=== PATIENT | female | born 1955 | race Caucasian/White ===

== ENCOUNTER 2016-08-10 15:39 | Emergency (ER) | payer OTHER ==
[~2016-08-10] VITALS: Ht 162.6 cm; Wt 110.0 kg
[~2016-08-10 15:39] MED LIST: ALLO300T2 PO; CYMB60CA PO; DEXI60CA PO; FURO1TAB61 PO; LEVEMIR SQ; LEVIMIR; LIPI20TA PO; METF500T PO; METO50TA PO; NOVOLOGP2 SQ; PENT400T PO; PERC10TA27 PO; PLAV75TA29 PO; POTA-163 PO; ROPI1TAB PO; SITA50 PO; SPIR50TA PO; TIZA4CAP3 PO; XANA1TAB2 PO
[2016-08-10 15:41] VITALS: BP 165/68; PULSE 80; RESP 24; O2SAT 93
[2016-08-10 17:05] VITALS: BP 143/71; PULSE 76; RESP 19; O2SAT 98
[2016-08-10 17:23] VITALS: O2SAT 100
--- NOTE | 2016-08-10 17:29 | PD ---
HPI Chief Complaint: Respiratory Symptoms Time Seen by Provider: 17:16 Travel History International Travel<30 days: No Contact w/Intl Traveler<30days: No Traveled to known affect area: No History of Present Illness HPI This patient complains of shortness of breath on exertion. At rest she has no symptoms. She does not have any chest pain. Symptoms of moderate severity. They're alleviated by rest. Duration one week. History of CAD. Had normal stress test 2 months ago. Follows with her fabric sourcer Dr. Naranjo every 3 months. Recently changed her Lasix from daily to when necessary basis PFSH Past Medical History Hx Anticoagulant Therapy: Yes (plavix and asa 81 (has been taking 325 though)) Cardiac Catheterization: Yes (6 STENTS) Cardiovascular Problems: Yes (stents; [place]) High Cholesterol: Yes COPD: Yes Diabetes: Yes Patient Takes Glucophage: Yes (metformin 08/10/16 1100) Diminished Hearing: No Hypertension: Yes Respiratory: Yes (COPD) Tetanus Vaccination: > 5 Years Influenza Vaccination: Yes ?: Not : 3 Para: 3 Tubal Ligation: Yes Past Surgical History Appendectomy: Yes Coronary Artery Bypass Graft: Yes (CABGX1) Hysterectomy: Yes Tonsillectomy: Yes Social History Alcohol Use: Yes (rarely) Tobacco Use: No Substance Use: No Allergies-Medications (Allergen,Severity, Reaction): Coded Allergies: Benicar (Verified Allergy, Severe, 08/10/16) Cozaar (Verified Allergy, Severe, 08/10/16) Reported Meds & Prescriptions Reported Meds & Active Scripts Active Reported Magnesium Unknown Strength Tab Unknown Dose PO DAILY B-12 (Cyanocobalamin) Unknown Strength Tab Unknown Dose PO DAILY Aspirin DR (Aspirin) 81 Mg Tabdr 81 Mg PO DAILY Gabapentin 800 Mg Tab 800 Mg PO BID Omeprazole 20 Mg Tab 20 Mg PO BID Ropinirole 2 Mg Tab 2 Mg PO TID Tizanidine (Tizanidine HCl) 4 Mg Cap 4 Mg PO QID PRN Metformin (Metformin HCl) 500 Mg Tab 500 Mg PO BIDPC With meals Novolog Inj (Insulin Aspart) 1,000 Unit/10 Ml Vial 25 Units SQ TID Sliding Scale as directed. Levemir Inj (Insulin Detemir) 1,000 unit/ 10 ML Vial 60 Units SQ BID Do not mix with any other Insulin. Percocet (Oxycodone-Acetaminophen) 10-325 mg Tab 1 Tab PO Q4H PRN Xanax (Alprazolam) 1 Mg Tab 1 Mg PO Q6H PRN Allopurinol 300 Mg Tab 300 Mg PO HS Lipitor (Atorvastatin Calcium) 20 Mg Tab 20 Mg PO HS Cymbalta DR (Duloxetine HCl) 60 Mg Capdr 60 Mg PO HS Plavix (Clopidogrel Bisulfate) 75 Mg Tab 75 Mg PO DAILY Spironolactone 50 Mg Tab 50 Mg PO DAILY Potassium Chloride ER (Potassium Chloride) 20 Meq Tab 20 Meq PO DAILY PRN Lasix (Furosemide) 80 Mg Tab 80 Mg PO DAILY PRN Januvia (Sitagliptin Phosphate) 50 Mg Tab 50 Mg PO DAILY Metoprolol Tartrate 50 Mg Tab 50 Mg PO BID Review of Systems General / Constitutional: No: Fever Eyes: No: Visual changes HENT: No: Headaches Cardiovascular: No: Chest Pain or Discomfort Respiratory: Positive: Shortness of Breath Gastrointestinal: No: Abdominal Pain Genitourinary: No: Dysuria Musculoskeletal: No: Pain Skin: No Rash Neurologic: No: Weakness Psychiatric: No: Depression Endocrine: No: Polydipsia Hematologic/Lymphatic: No: Easy Bruising Physical Exam Narrative GENERAL: Well-nourished, well-developed patient in no apparent distress. SKIN: Warm and dry. HEAD: Atraumatic. Normocephalic. EYES: Pupils equal and round. No scleral icterus. No injection or drainage. ENT: No nasal bleeding or discharge. Mucous membranes pink and moist. NECK: Trachea midline. No JVD. CARDIOVASCULAR: Regular rate and rhythm. No murmur appreciated. RESPIRATORY: No accessory muscle use. Clear to auscultation. Breath sounds equal bilaterally. GASTROINTESTINAL: Abdomen soft, non-tender, nondistended. Hepatic and splenic margins not palpable. MUSCULOSKELETAL: No obvious deformities. No clubbing. No cyanosis. Trace symmetric edema the feet and ankles NEUROLOGICAL: Awake and alert. No obvious cranial nerve deficits. Motor grossly within normal limits. Normal speech. PSYCHIATRIC: Appropriate mood and affect; insight and judgment normal. Data Data Last Documented VS Vital Signs Date Time Temp Pulse Resp B/P Pulse Ox O2 Delivery O2 Flow Rate FiO2 08/10/16 17:23 100 Room Air 08/10/16 17:07 77 18 08/10/16 17:05 143/71 Orders Electrocardiogram (08/10/16 ) Basic Metabolic Panel (Bmp) (08/10/16 17:21) Ckmb (Isoenzyme) Profile (08/10/16 17:21) Complete Blood Count With Diff (08/10/16 17:21) Prothrombin Time / Inr (Pt) (08/10/16 17:21) Act Partial Throm Time (Ptt) (08/10/16 17:21) Troponin I (08/10/16 17:21) Chest, Single Ap (08/10/16 17:21) Ecg Monitoring (08/10/16 17:21) Bilateral Bp Monitoring (08/10/16 17:21) Iv Access Insert/Monitor (08/10/16 17:21) Oximetry (08/10/16 17:21) Aspirin (Aspirin) (08/10/16 17:30) Sodium Chloride 0.9% Flush (Ns Flush) (08/10/16 17:30) Furosemide Inj (Lasix Inj) (08/10/16 18:00) Labs Laboratory Tests Test 08/10/16 17:28 White Blood Count 9.6 TH/MM3 Red Blood Count 3.13 MIL/MM3 Hemoglobin 10.3 GM/DL Hematocrit 29.7 % Mean Corpuscular Volume 94.9 FL Mean Corpuscular Hemoglobin 32.9 PG Mean Corpuscular Hemoglobin 34.7 % Concent Red Cell Distribution Width 15.4 % Platelet Count 316 TH/MM3 Mean Platelet Volume 8.5 FL Neutrophils (%) (Auto) 68.7 % Lymphocytes (%) (Auto) 22.9 % Monocytes (%) (Auto) 5.5 % Eosinophils (%) (Auto) 2.1 % Basophils (%) (Auto) 0.8 % Neutrophils # (Auto) 6.6 TH/MM3 Lymphocytes # (Auto) 2.2 TH/MM3 Monocytes # (Auto) 0.5 TH/MM3 Eosinophils # (Auto) 0.2 TH/MM3 Basophils # (Auto) 0.1 TH/MM3 CBC Comment DIFF FINAL Differential Comment Prothrombin Time 10.3 SEC Prothromb Time International 0.9 RATIO Ratio Activated Partial 28.2 SEC Thromboplast Time Sodium Level 137 MEQ/L Potassium Level 4.5 MEQ/L Chloride Level 104 MEQ/L Carbon Dioxide Level 23.1 MEQ/L Anion Gap 10 MEQ/L Blood Urea Nitrogen 26 MG/DL Creatinine 1.62 MG/DL Estimat Glomerular Filtration 32 ML/MIN Rate Random Glucose 194 MG/DL Calcium Level 8.8 MG/DL Total Creatine Kinase 70 U/L Troponin I LESS THAN 0.02 NG/ML MDM Medical Decision Making Medical Screen Exam Complete: Yes Emergency Medical Condition: Yes Medical Record Reviewed: Yes Differential Diagnosis Differential diagnosis includes COPD, asthma, pneumonia, bronchitis, pneumothorax Narrative Course I have reviewed the patient's electronic medical record. Reviewed her chest pain center hospitalization from 2 months ago with normal stress test IV placed I reviewed the EKG which shows sinus rhythm and no ST elevation or ectopy I reviewed the chest x-ray shows sinus rhythm without ectopy Extended cardiac monitoring shows sinus rhythm without ectopy CBC is normal Metabolic profile is normal CK is normal Troponin is normal Coagulation studies are normal Workup is negative. Vitals are normal. She remains asymptomatic. I gave her a dose of IV Lasix in case there is a bit of fluid overload. No clinical suspicion of ACS She just had a normal recent stress test She follows closely with the fabric sourcer and she should contact them for follow -up to discuss this. She was concerned that she may need another heart catheterization and I advised her to discuss this with her fabric sourcer. I don't think it needs to be emergently done now however Diagnosis Primary Impression: Dyspnea on exertion Additional Impression: Hx of coronary artery disease Additional Instructions: The patient was advised to follow up with their physician and fabric sourcer and return if they worsen. Med/Other Pt SpecificInfo: Other Disposition: 01 DISCHARGE HOME Condition: Stable Piter Givens MD Aug 10, 2016 17:29
[2016-08-10] MEDS ORDERED: ASPIRIN 325 MG TAB PO ONE (17:30)
[2016-08-10] MEDS ORDERED: SODIUM CHLORIDE 0.9% FLUSH 5 ML FLUSH IVF PRN (17:30)
[2016-08-10] MEDS ORDERED: OMEP20TA PO (17:36)
[2016-08-10] MEDS ORDERED: ROPI2TAB PO (17:36)
[2016-08-10] MEDS ORDERED: GABA800T PO (17:45)
[2016-08-10] MEDS ORDERED: B-12100T PO (17:45)
[2016-08-10] MEDS ORDERED: MAGN200T PO (17:45)
[2016-08-10] MEDS ORDERED: ASPI81TA5 PO (17:45)
[2016-08-10 17:48] LABS: AUTOMATED NEUTROPHIL # 6.6 TH/MM3 (1.8-7.7); BASOPHIL # 0.1 TH/MM3 (0-0.2); BASOPHIL % 0.8 % (0.0-2.0); EOSINOPHIL # 0.2 TH/MM3 (0-0.4); EOSINOPHIL % 2.1 % (0.0-4.0); HEMATOCRIT 29.7 % (35.0-46.0); HEMO FLAGS DIFF FINAL; LYMPH % 22.9 % (9.0-44.0); LYMPHOCYTE # 2.2 TH/MM3 (1.0-4.8); MEAN CELL VOLUME 94.9 FL (80.0-100.0); MEAN CORPUSCULAR HEMOGLOBIN 32.9 PG (27.0-34.0); MEAN CORPUSCULAR HGB CONC 34.7 % (32.0-36.0); MONO % 5.5 % (0.0-8.0); NEUT % 68.7 % (16.0-70.0); PLATELET COUNT 316 TH/MM3 (150-450); RED BLOOD COUNT 3.13 MIL/MM3 (4.00-5.30); RED CELL DISTRIBUTION WIDTH 15.4 % (11.6-17.2); WHITE BLOOD COUNT 9.6 TH/MM3 (4.0-11.0)
[2016-08-10 17:50] LABS: APTT (PATIENT) 28.2 SEC (24.3-30.1); INTERNATIONAL NORMALIZED RATIO 0.9 RATIO; PROTHROMBIN TIME - PATIENT 10.3 SEC (9.8-11.6)
--- NOTE | 2016-08-10 17:50 | RADRPT ---
EXAM DATE/TIME: 08/10/2016 17:35 [facility] COMPARISON: CHEST SINGLE AP, May 23, 2016, 23:57. INDICATIONS : Short of breath. MEDICAL HISTORY : Hypertension. Chronic obstructive pulmonary disease. Myocardial infarction. Diabetes and endometr ial cancer. SURGICAL HISTORY : Tubal ligation. Hysterectomy. Tonsillectomy. CABG. ENCOUNTER: Initial ACUITY: 2 days PAIN SCORE: 1/10 LOCATION: Bilateral chest FINDINGS: A single view of the chest demonstrates the lungs to be symmetrically aerated without evidence of mas s, infiltrate or effusion. The cardiomediastinal contours are unremarkable. Osseous structures are intact with evidence of prior median sternotomy cardiac surgery.. CONCLUSION: No acute disease. No significant change has occurred. Joel Noriega MD on August 10, 2016 at 17:47 Board Certified Radiologist. This report was verified electronically.
[2016-08-10] MEDS ORDERED: FUROSEMIDE 20 MG/2 ML VIAL IV PUSH ONE (18:00)
[2016-08-10 18:04] LABS: ANION GAP 10 MEQ/L (5-15); BICARBONATE 23.1 MEQ/L (21.0-32.0); BLOOD UREA NITROGEN 26 MG/DL (7-18); CHLORIDE 104 MEQ/L (98-107); GLOMERULAR FILTRATION RATE 32 ML/MIN (>89); POTASSIUM 4.5 MEQ/L (3.5-5.1); SODIUM (NA) 137 MEQ/L (136-145)
[2016-08-10 18:10] LABS: CREATINE KINASE 70 U/L (26-192)
[2016-08-10 18:26] VITALS: BP 122/56; PULSE 68; RESP 19; O2SAT 97
--- NOTE | 2016-08-11 17:07 | EKG ---
Date Performed: 08/10/2016 Time Performed: 17:08:20 PTAGE: 60 years EKG: Sinus rhythm Since previous tracing, no significant change noted NORMAL ECG PREVIOUS TRACING : 05/24/2016 06.19 DOCTOR: Kamran Dial Interpretating Date/Time 08/11/2016 17:06:51
== END 2016-08-10 19:44 | disposition home or self-care (01) ==
LOC: NEPE 15:39
DX: R06.09 Other forms of dyspnea (principal); I25.10 Atherosclerotic heart disease of native coronary artery without angina pectoris; I10 Essential (primary) hypertension; I25.2 Old myocardial infarction; J44.9 Chronic obstructive pulmonary disease, unspecified; E11.9 Type 2 diabetes mellitus without complications; Z79.4 Long term (current) use of insulin; Z79.02 Long term (current) use of antithrombotics/antiplatelets; Z79.82 Long term (current) use of aspirin; Z79.899 Other long term (current) drug therapy; Z95.1 Presence of aortocoronary bypass graft
CPT/HCPCS: 71010; 80048; 82550; 84484; 85025; 85610; 85730; 93005; 96374; 99285; J1940

== ENCOUNTER 2016-10-07 13:54 | Observation (INO) | payer OTHER ==
[2016-10-07] VITALS (10 sets, daily range): BP systolic 93–118; BP diastolic 40–66; PULSE 63–72; RESP 18–21; TEMP 98.1–98.9; O2SAT 93–100
[~2016-10-07] VITALS: Ht 160 cm; Wt 110.8 kg
[~2016-10-07 13:54] MED LIST changes: +ASPI81TA5 PO; +B-12100T PO; -DEXI60CA PO; +GABA800T PO; -LEVIMIR; +MAGN200T PO; +OMEP20TA PO; -PENT400T PO; -ROPI1TAB PO; +ROPI2TAB PO
--- NOTE | 2016-10-07 14:02 | PD ---
HPI Chief Complaint: Chest Pain Time Seen by Provider: 14:01 Travel History International Travel<30 days: No Contact w/Intl Traveler<30days: No Traveled to known affect area: No History of Present Illness HPI 60-year-old female came to the emergency room with history of chest pain and shortness of breath. Patient says that all this started since yesterday. She is having the pain progressively worsened. The pain is in the middle of the chest radiating to the left side. And has strong history of coronary artery disease including multiple stents and a bypass surgery. Patient says that her her bypass was in 2012. She does have a claim agent who she follows up with. Took her aspirin and Plavix today. Her vital signs were within acceptable limits when she arrived. Patient is on a long list of medications on a daily basis. [facility] Past Medical History Narrative Medical List of her past medical, surgical, social and family history was reviewed from the nursing note. Hx Anticoagulant Therapy: Yes (plavix and asa 81 (has been taking 325 though)) Cardiac Catheterization: Yes (6 STENTS) Cardiovascular Problems: Yes (stents; [place]) High Cholesterol: Yes COPD: Yes Diabetes: Yes Diminished Hearing: No Hypertension: Yes Respiratory: Yes (COPD) : 3 Para: 3 Tubal Ligation: Yes Past Surgical History Appendectomy: Yes Coronary Artery Bypass Graft: Yes (CABGX1) Hysterectomy: Yes Tonsillectomy: Yes Social History Alcohol Use: Yes (rarely) Tobacco Use: No Substance Use: No Allergies-Medications (Allergen,Severity, Reaction): Coded Allergies: Benicar (Verified Allergy, Severe, 10/07/16) Cozaar (Verified Allergy, Severe, 10/07/16) Comments List of her allergies reviewed from the nursing note. Reported Meds & Prescriptions Reported Meds & Active Scripts Active Reported Magnesium Unknown Strength Tab Unknown Dose PO DAILY B-12 (Cyanocobalamin) Unknown Strength Tab Unknown Dose PO DAILY Aspirin DR (Aspirin) 81 Mg Tabdr 81 Mg PO DAILY Gabapentin 800 Mg Tab 800 Mg PO BID Omeprazole 20 Mg Tab 20 Mg PO BID Ropinirole 2 Mg Tab 2 Mg PO TID Tizanidine (Tizanidine HCl) 4 Mg Cap 4 Mg PO QID PRN Metformin (Metformin HCl) 500 Mg Tab 500 Mg PO BIDPC With meals Novolog Inj (Insulin Aspart) 1,000 Unit/10 Ml Vial 25 Units SQ TID Sliding Scale as directed. Levemir Inj (Insulin Detemir) 1,000 unit/ 10 ML Vial 60 Units SQ BID Do not mix with any other Insulin. Percocet (Oxycodone-Acetaminophen) 10-325 mg Tab 1 Tab PO Q4H PRN Xanax (Alprazolam) 1 Mg Tab 1 Mg PO Q6H PRN Allopurinol 300 Mg Tab 300 Mg PO HS Lipitor (Atorvastatin Calcium) 20 Mg Tab 20 Mg PO HS Cymbalta DR (Duloxetine HCl) 60 Mg Capdr 60 Mg PO HS Plavix (Clopidogrel Bisulfate) 75 Mg Tab 75 Mg PO DAILY Spironolactone 50 Mg Tab 50 Mg PO DAILY Potassium Chloride ER (Potassium Chloride) 20 Meq Tab 20 Meq PO DAILY PRN Lasix (Furosemide) 80 Mg Tab 80 Mg PO DAILY PRN Januvia (Sitagliptin Phosphate) 50 Mg Tab 50 Mg PO DAILY Metoprolol Tartrate 50 Mg Tab 50 Mg PO BID Narrative Medication List of her home medications reviewed from the nursing note. Review of Systems Except as stated in HPI: all other systems reviewed are Neg Physical Exam Narrative GENERAL: Awake, alert, morbidly obese, moderate distress SKIN: Focused skin assessment warm/dry. HEAD: Atraumatic. Normocephalic. EYES: Pupils equal and round. No scleral icterus. No injection or drainage. ENT: No nasal bleeding or discharge. Mucous membranes pink and moist. NECK: Trachea midline. No JVD. CARDIOVASCULAR: Regular rate and rhythm. No murmur appreciated. RESPIRATORY: No accessory muscle use. Clear to auscultation. Breath sounds equal bilaterally. GASTROINTESTINAL: Abdomen soft, non-tender, nondistended. Hepatic and splenic margins not palpable. MUSCULOSKELETAL: No obvious deformities. No clubbing. No cyanosis. No edema. NEUROLOGICAL: Awake and alert. No obvious cranial nerve deficits. Motor grossly within normal limits. Normal speech. PSYCHIATRIC: Appropriate mood and affect; insight and judgment normal. Data Data Last Documented VS Orders Electrocardiogram (10/07/16 14:09) Basic Metabolic Panel (Bmp) (10/07/16 14:09) Ckmb (Isoenzyme) Profile (10/07/16 14:09) Complete Blood Count With Diff (10/07/16 14:09) Magnesium (Mg) (10/07/16 14:09) Prothrombin Time / Inr (Pt) (10/07/16 14:09) Act Partial Throm Time (Ptt) (10/07/16 14:09) Troponin I (10/07/16 14:09) Chest, Single Ap (10/07/16 14:09) Ecg Monitoring (10/07/16 14:09) Bilateral Bp Monitoring (10/07/16 14:09) Iv Access Insert/Monitor (10/07/16 14:09) Oximetry (10/07/16 14:09) Oxygen Administration (10/07/16 14:09) Sodium Chloride 0.9% Flush (Ns Flush) (10/07/16 14:15) Add Patient To Providers List (10/07/16 ) Admit Order (Ed Use Only) (10/07/16 16:14) Labs MDM Medical Decision Making Medical Screen Exam Complete: Yes Emergency Medical Condition: Yes Medical Record Reviewed: Yes Interpretation(s) Twelve-lead EKG was reviewed by me. Normal sinus rhythm, normal axis, nonspecific ST-T wave changes. Heart rate of 73 bpm. Differential Diagnosis ACS, non-STEMI, nonspecific chest pain Narrative Course 3:54 PM blood test results are back. They are within acceptable limits. Patient has renal insufficiency which looks unchanged. She is within normal limit as well. Waiting for the hospitalist to call back for admission to rule out ACS. Procedures EKG Prior to Arrival: No Diagnosis Primary Impression: Chest pain Qualified Code: R07.9 - Chest pain, unspecified type Additional Impression: Renal insufficiency, mild Admitting Information Admitting Physician Requests: Observation Scripts Diltiazem CD 24 HR 120 Mg [id number] Mg PO DAILY #30 CAP Ref 0 Prov:Chance Hawkins MD 10/09/16 Loratadine 10 Mg Tab10 Mg PO HS #30 TAB Ref 0 Prov:Chance Hawkins MD 10/09/16 Breanna Schultz MD Oct 07, 2016 14:02 Neutrophils (%) (Auto) 77.4 % Lymphocytes (%) (Auto) 18.2 % Monocytes (%) (Auto) 2.5 % Eosinophils (%) (Auto) 1.4 % Basophils (%) (Auto) 0.5 % Neutrophils # (Auto) 8.0 TH/MM3 Lymphocytes # (Auto) 1.9 TH/MM3 Monocytes # (Auto) 0.3 TH/MM3 Eosinophils # (Auto) 0.1 TH/MM3 Basophils # (Auto) 0.1 TH/MM3 CBC Comment DIFF FINAL Differential Comment Prothrombin Time 10.7 SEC Prothromb Time International 1.0 RATIO Ratio Activated Partial 26.7 SEC Thromboplast Time Sodium Level 141 MEQ/L Potassium Level 4.5 MEQ/L Chloride Level 106 MEQ/L Carbon Dioxide Level 23.8 MEQ/L Anion Gap 11 MEQ/L Blood Urea Nitrogen 22 MG/DL Creatinine 1.40 MG/DL Estimat Glomerular Filtration 38 ML/MIN Rate Random Glucose 184 MG/DL Calcium Level 9.3 MG/DL Magnesium Level 2.1 MG/DL Total Creatine Kinase 95 U/L Troponin I LESS THAN 0.02 NG/ML MDM Medical Decision Making Medical Screen Exam Complete: Yes Emergency Medical Condition: Yes Medical Record Reviewed: Yes Interpretation(s) Twelve-lead EKG was reviewed by me. Normal sinus rhythm, normal axis, nonspecific ST-T wave changes. Heart rate of 73 bpm. Differential Diagnosis ACS, non-STEMI, nonspecific chest pain Narrative Course 3:54 PM blood test results are back. They are within acceptable limits. Patient has renal insufficiency which looks unchanged. She is within normal limit as well. Waiting for the hospitalist to call back for admission to rule out ACS. Procedures EKG Prior to Arrival: No Diagnosis Primary Impression: Chest pain Qualified Code: R07.9 - Chest pain, unspecified type Additional Impression: Renal insufficiency, mild Admitting Information Admitting Physician Requests: Observation Breanna Schultz MD Oct 07, 2016 14:02 Breanna Schultz MD Oct 07, 2016 14:02
[2016-10-07] MEDS ORDERED: SODIUM CHLORIDE 0.9% FLUSH 10 ML FLUSH IVF PRN (14:15)
--- NOTE | 2016-10-07 14:23 | RADHPO ---
EXAM DATE/TIME: 10/07/2016 14:16 [facility] COMPARISON: CHEST SINGLE AP, August 10, 2016, 17:35. INDICATIONS : Short of breath & chest pain. MEDICAL HISTORY : Hypertension. Chronic obstructive pulmonary disease. Myocardial infarction. Diabetes and endometrial cancer. SURGICAL HISTORY : Tubal ligation. Hysterectomy. Tonsillectomy. CABG. ENCOUNTER: Initial ACUITY: 1 day PAIN SCORE: 5/10 LOCATION: chest FINDINGS: A single view of the chest demonstrates the lungs to be symmetrically aerated without evidence of mas s, infiltrate or effusion. There is hazy opacity projected over the left lower chest which is probab ly due to scatter from patient's body habitus. The cardiomediastinal contours are unremarkable. Oss eous structures are intact. Prior median sternotomy with 8 wire sutures. CONCLUSION: The lungs are clear. Sekou Aguilera MD on October 07, 2016 at 14:20 Board Certified Radiologist. This report was verified electronically.
[2016-10-07 14:39] LABS: BASOPHIL # 0.1 TH/MM3 (0-0.2); BASOPHIL % 0.5 % (0.0-2.0); EOSINOPHIL # 0.1 TH/MM3 (0-0.4); EOSINOPHIL % 1.4 % (0.0-4.0); HEMATOCRIT 29.1 % (35.0-46.0); LYMPH % 18.2 % (9.0-44.0); LYMPHOCYTE # 1.9 TH/MM3 (1.0-4.8); MEAN CELL VOLUME 94.7 FL (80.0-100.0); MEAN CORPUSCULAR HEMOGLOBIN 30.7 PG (27.0-34.0); MEAN CORPUSCULAR HGB CONC 32.4 % (32.0-36.0); MONO % 2.5 % (0.0-8.0); NEUT % 77.4 % (16.0-70.0); PLATELET COUNT 335 TH/MM3 (150-450); RED BLOOD COUNT 3.07 MIL/MM3 (4.00-5.30); WHITE BLOOD COUNT 10.4 TH/MM3 (4.0-11.0)
[2016-10-07 14:40] LABS: HEMO FLAGS DIFF FINAL
[2016-10-07 14:49] LABS: CHLORIDE 106 MEQ/L (98-107); POTASSIUM 4.5 MEQ/L (3.5-5.1); SODIUM (NA) 141 MEQ/L (136-145)
[2016-10-07 14:52] LABS: ANION GAP 11 MEQ/L (5-15); BICARBONATE 23.8 MEQ/L (21.0-32.0); BLOOD UREA NITROGEN 22 MG/DL (7-18); MAGNESIUM 2.1 MG/DL (1.5-2.5)
[2016-10-07 14:53] LABS: APTT (PATIENT) 26.7 SEC (24.3-30.1); PROTHROMBIN TIME - PATIENT 10.7 SEC (9.8-11.6)
[2016-10-07 14:56] LABS: GLOMERULAR FILTRATION RATE 38 ML/MIN (>89)
[2016-10-07 15:02] LABS: CREATINE KINASE 95 U/L (26-192)
[2016-10-07] MEDS ORDERED: CALCIUM CARBONATE 500 MG CHEWABLE TAB CHEW PRN (16:15)
[2016-10-07] MEDS ORDERED: DOCUSATE SODIUM 50 MG/SENNA 8.6 MG TAB PO PRN (16:15)
[2016-10-07] MEDS ORDERED: NALOXONE HCL 0.4 MG/ML AMP IV PUSH PRN (16:15)
[2016-10-07] MEDS ORDERED: MORPHINE SULFATE 4 MG/ML INJ IV PRN (16:15)
[2016-10-07] MEDS ORDERED: ONDANSETRON HCL 4 MG/2 ML VIAL IV PRN (16:15)
[2016-10-07] MEDS ORDERED: NITROGLYCERIN 0.4 MG SL 25 TABS/BTL SL PRN (16:15)
[2016-10-07] MEDS ORDERED: SODIUM CHLORIDE 0.9% FLUSH 10 ML FLUSH IV FLUSH PRN (16:15)
[2016-10-07] MEDS ORDERED: ACETAMINOPHEN 500 MG CPLT PO PRN (16:15)
[2016-10-07] MEDS ORDERED: DEXTROSE 50% IN WATER 50 ML VIAL(D50) IV PUSH PRN (16:15)
[2016-10-07] MEDS ORDERED: GLUCAGON 1 MG/ML VIAL OTHER PRN (16:15)
[2016-10-07] MEDS ORDERED: ACETAMINOPHEN/HYDROcodone 325 MG/7.5 MG TAB PO PRN (16:15)
[2016-10-07] MEDS: HEPARIN SODIUM - SQ 10,000 UNITS/ML VIAL SQ SCH (17:00)
[2016-10-07] MEDS: INSULIN ASPART 1,000 UNITS/10 ML VIAL SQ SCH (18:00)
--- NOTE | 2016-10-07 18:16 | HHI.HP ---
[facility] Primary Care Physician Darren Blcak, DO Admission Diagnosis chest pain, rule out ACS, renal insufficiency Diagnoses: Chief Complaint: Chest pain Travel History International Travel<30 Days: No Contact w/Intl Traveler <30 Da: No Traveled to Known Affected Are: No History of Present Illness This is a 60-year-old female presented to the emergency room complaining of chest pain and shortness of breath. Started 2 months ago when she developed dyspnea on exertion which has been progressive. Early this morning she woke up with difficulty breathing. She has orthopnea, lower extremity swelling especially at the end of the day and weight gain 1-2 pounds, she takes Aldactone and as needed Lasix. She was evaluated by her program director group work a month ago and considered ERIN with her abnormal echocardiogram showing leaky valve but her BNP was not significantly elevated and was referred to a senior editor who performed pulmonary function test and was told that her shortness of breath is likely secondary to her heart condition. Today she also complained of retrosternal pressure scale of 4-10 with crampy discomfort on her left chest associated with dizziness and palpitations. She is worried because her symptoms are similar in the past when she ruled out for VT with negative stress test but required stenting. She has strong history of coronary artery disease including multiple stents and a bypass surgery. Took her aspirin and Plavix today. Review of Systems Constitutional: DENIES: Diaphoretic episodes, Fatigue, Fever, Weight gain, Weight loss, Chills, Dizziness, Change in appetite, Night Sweats Endocrine: DENIES: Heat/cold intolerance, Polydipsia, Polyuria, Polyphagia Eyes: DENIES: Blurred vision, Diplopia, Vision loss, Photosensitivity Ears, nose, mouth, throat: DENIES: Tinnitus, Vertigo, Throat pain, Hoarseness, Epistaxis, Odynophagia Respiratory: COMPLAINS OF: Shortness of breath, DENIES: Cough, Wheezing, Hemoptysis, Sputum production Cardiovascular: COMPLAINS OF: Chest pain, Dyspnea on Exertion, Lower Extremity Edema, Orthopnea, DENIES: Palpitations, Syncope, PND, Claudication Gastrointestinal: DENIES: Abdominal pain, Black stools, Bloody stools, Constipation, Diarrhea, Nausea, Vomiting, Difficulty Swallowing, Anorexia Genitourinary: DENIES: Urinary frequency, Urinary incontinence, Urgency, Hematuria, Dysuria, Nocturia, Vaginal discharge Integumentary: DENIES: Rash Neurologic: DENIES: Headache, Localized weakness, Seizures, Tremor, Poor Balance Psychiatric: DENIES: Anxiety, Confusion, Depression, Hallucinations, Agitation , Suicidal Ideation, Homicidal Ideation, Delusions Past Family Social History Past Medical History Coronary artery disease status post VT status post stents and bypass, PAD status post angioplasty, hyperlipidemia, COPD, diabetes mellitus, hypertension, COPD and chronic kidney disease stage III Past Surgical History As previously mentioned. Tubal ligation, appendectomy, hysterectomy and tonsillectomy Reported Medications Magnesium Unknown Strength Tab Unknown Dose PO DAILY B-12 (Cyanocobalamin) Unknown Strength Tab Unknown Dose PO DAILY Aspirin DR (Aspirin) 81 Mg Tabdr 81 Mg PO DAILY Gabapentin 800 Mg Tab 800 Mg PO BID Omeprazole 20 Mg Tab 20 Mg PO BID Ropinirole 2 Mg Tab 2 Mg PO TID Tizanidine (Tizanidine HCl) 4 Mg Cap 4 Mg PO QID PRN Metformin (Metformin HCl) 500 Mg Tab 500 Mg PO BIDPC With meals Novolog Inj (Insulin Aspart) 1,000 Unit/10 Ml Vial 25 Units SQ TID Sliding Scale as directed. Levemir Inj (Insulin Detemir) 1,000 unit/ 10 ML Vial 60 Units SQ BID Do not mix with any other Insulin. Percocet (Oxycodone-Acetaminophen) 10-325 mg Tab 1 Tab PO Q4H PRN Xanax (Alprazolam) 1 Mg Tab 1 Mg PO Q6H PRN Allopurinol 300 Mg Tab 300 Mg PO HS Lipitor (Atorvastatin Calcium) 20 Mg Tab 20 Mg PO HS Cymbalta DR (Duloxetine HCl) 60 Mg Capdr 60 Mg PO HS Plavix (Clopidogrel Bisulfate) 75 Mg Tab 75 Mg PO DAILY Spironolactone 50 Mg Tab 50 Mg PO DAILY Potassium Chloride ER (Potassium Chloride) 20 Meq Tab 20 Meq PO DAILY PRN Lasix (Furosemide) 80 Mg Tab 80 Mg PO DAILY PRN Januvia (Sitagliptin Phosphate) 50 Mg Tab 50 Mg PO DAILY Metoprolol Tartrate 50 Mg Tab 50 Mg PO BID Allergies: Coded Allergies: Lenorer (Verified Allergy, Severe, 10/07/16) Cozaar (Verified Allergy, Severe, 10/07/16) Social History Occasional alcohol use. Does not smoke or use illicit drugs Physical Exam Vital Signs Vital Signs Date Time Temp Pulse Resp B/P Pulse Ox O2 Delivery O2 Flow Rate FiO2 10/07/16 17:41 68 18 105/48 94 Room Air 10/07/16 17:32 68 18 93/40 100 BiPAP 10/07/16 17:00 93 21 10/07/16 15:40 68 18 102/53 95 Room Air 10/07/16 15:16 63 18 95/46 94 Room Air 10/07/16 14:34 72 115/66 118/66 10/07/16 14:33 18 97 Room Air 10/07/16 14:33 97 Room Air 10/07/16 14:15 97 Room Air 10/07/16 14:14 98.1 72 18 116/55 97 Physical Exam GENERAL: This is a well-nourished, well-developed patient, in no apparent distress. SKIN: No rashes, ecchymoses or lesions. Cool and dry. HEAD: Atraumatic. Normocephalic. No temporal or scalp tenderness. EYES: Pupils equal round and reactive. Extraocular motions intact. No scleral icterus. No injection or drainage. ENT: Nose without bleeding, purulent drainage or septal hematoma. Throat without erythema, tonsillar hypertrophy or exudate. Uvula midline. Airway patent. NECK: Trachea midline. No JVD or lymphadenopathy. Supple, nontender, no meningeal signs. CARDIOVASCULAR: Regular rate and rhythm without murmurs, gallops, or rubs. RESPIRATORY: Clear to auscultation. Breath sounds equal bilaterally. No wheezes , rales, or rhonchi. GASTROINTESTINAL: Abdomen soft, non-tender, nondistended. No hepato-splenomegaly , or palpable masses. No guarding. MUSCULOSKELETAL: Extremities without clubbing, cyanosis, or edema. No joint tenderness, effusion, or edema noted. No calf tenderness. Negative Homans sign bilaterally. NEUROLOGICAL: Awake and alert. Cranial nerves II through XII intact. Motor and sensory grossly within normal limits. Five out of 5 muscle strength in all muscle groups. Normal speech. Laboratory Laboratory Tests Test 10/07/16 14:25 White Blood Count 10.4 Red Blood Count 3.07 Hemoglobin 9.4 Hematocrit 29.1 Mean Corpuscular Volume 94.7 Mean Corpuscular Hemoglobin 30.7 Mean Corpuscular Hemoglobin 32.4 Concent Red Cell Distribution Width 15.0 Platelet Count 335 Mean Platelet Volume 8.3 Neutrophils (%) (Auto) 77.4 Lymphocytes (%) (Auto) 18.2 Monocytes (%) (Auto) 2.5 Eosinophils (%) (Auto) 1.4 Basophils (%) (Auto) 0.5 Neutrophils # (Auto) 8.0 Lymphocytes # (Auto) 1.9 Monocytes # (Auto) 0.3 Eosinophils # (Auto) 0.1 Basophils # (Auto) 0.1 CBC Comment DIFF FINAL Differential Comment Prothrombin Time 10.7 Prothromb Time International 1.0 Ratio Activated Partial 26.7 Thromboplast Time Sodium Level 141 Potassium Level 4.5 Chloride Level 106 Carbon Dioxide Level 23.8 Anion Gap 11 Blood Urea Nitrogen 22 Creatinine 1.40 Estimat Glomerular Filtration 38 Rate Random Glucose 184 Calcium Level 9.3 Magnesium Level 2.1 Total Creatine Kinase 95 Troponin I LESS THAN 0.02 B-Type Natriuretic Peptide 376 Result Diagram: 10/07/16 1425 10/07/16 1425 Imaging EKG tracing interpreted by me with sinus rhythm poor R-wave progression no significant. Change from previous Chest x-ray image interpreted by me with no acute cardiopulmonary disease Last Impressions Chest X-Ray 10/07/16 1409 Signed Impressions: Service Date/Time: Friday, October 07, 2016 14:16 - CONCLUSION: The lungs are clear. Sekou Aguilera MD Assessment and Plan Problem List: (1) Chest pain ICD Code: R07.9 Status: Acute (2) Dyspnea on exertion ICD Code: R06.09 Status: Acute Assessment and Plan 61-year-old female complaining of chest pain and shortness of breath. Initial cardiac enzymes and EKG unremarkable. Chest x-ray with no acute cardiopulmonary disease. Patient's states her symptoms are similar when she required stenting in the past. She has history of coronary artery disease status post multiple stents and CABG. Stress test negative for ischemia back in May 2016 but was a limited exam secondary to patient's habitus. Trend cardiac enzymes. Continue aspirin, Plavix, Lopressor and nitrates. Pain management with Lortab and IV morphine CHF exac. Patient with elevated BNP we'll obtain 2-D echo results performed a month ago. Start diuresis with IV Lasix with hold parameters, patient has soft BP. CHF education, I/O and monitor weight Chronic medical conditions of PAD, hyperlipidemia, COPD, diabetes mellitus, hypertension, COPD and chronic kidney disease stage III. Stable continue outpatient medications as appropriate. Monitor fingerstick with sliding scale coverage DVT prophylaxis with SCD and heparin. Discussed Condition With Patient Problem Qualifiers (1) Chest pain: Qualified Code: R07.9 - Chest pain, unspecified type Chele Feng MD Oct 07, 2016 18:16
[2016-10-07 18:32] LABS: CREATINE KINASE 89 U/L (26-192)
[2016-10-07] MEDS: oxyCODONE/ACETAMINOPHEN 10 MG/325 MG TAB PO PRN (18:40)
[2016-10-07] MEDS: INSULIN ASPART SUPPLEMENTAL SCALE SQ SCH (21:00)
[2016-10-07] MEDS: METOPROLOL TARTRATE 50 MG TAB PO SCH (21:00)
[2016-10-07] MEDS: PANTOPRAZOLE SOD 20 MG DELAYED RELEASE TAB PO SCH (21:37)
[2016-10-07] MEDS: ALLOPURINOL 300 MG TAB PO SCH (21:37)
[2016-10-07] MEDS: DULoxetine HCl DR 60 MG CAP PO SCH (21:37)
[2016-10-07] MEDS: ATORVASTATIN 20 MG TAB PO SCH (21:37)
[2016-10-07] MEDS: GABAPENTIN 400 MG CAP PO SCH (21:37)
[2016-10-07] MEDS: SODIUM CHLORIDE 0.9% FLUSH 10 ML FLUSH IV FLUSH SCH (21:38)
[2016-10-07] MEDS: INSULIN DETEMIR 100 UNITS/ML VIAL SQ SCH (21:38)
[2016-10-07 21:43] LABS: CREATINE KINASE 89 U/L (26-192)
[2016-10-08] VITALS (19 sets, daily range): BP systolic 101–169; BP diastolic 41–108; PULSE 65–87; RESP 20–22; TEMP 96.5–98.5; O2SAT 91–98
[2016-10-08] MEDS: ALPRAZolam 1 MG TAB PO PRN ×3 (00:42→20:55)
[2016-10-08] MEDS: oxyCODONE/ACETAMINOPHEN 10 MG/325 MG TAB PO PRN ×3 (00:43→20:55)
[2016-10-08 05:38] LABS: AUTOMATED NEUTROPHIL # 5.1 TH/MM3 (1.8-7.7); BASOPHIL % 0.4 % (0.0-2.0); EOSINOPHIL # 0.2 TH/MM3 (0-0.4); EOSINOPHIL % 2.7 % (0.0-4.0); HEMATOCRIT 29.8 % (35.0-46.0); HEMO FLAGS DIFF FINAL; LYMPH % 27.6 % (9.0-44.0); LYMPHOCYTE # 2.2 TH/MM3 (1.0-4.8); MEAN CELL VOLUME 93.3 FL (80.0-100.0); MEAN CORPUSCULAR HEMOGLOBIN 29.5 PG (27.0-34.0); MEAN CORPUSCULAR HGB CONC 31.6 % (32.0-36.0); NEUT % 63.3 % (16.0-70.0); PLATELET COUNT 313 TH/MM3 (150-450); RED CELL DISTRIBUTION WIDTH 14.5 % (11.6-17.2)
[2016-10-08] MEDS: INSULIN ASPART SUPPLEMENTAL SCALE SQ SCH ×4 (05:49→20:59)
[2016-10-08 05:54] LABS: POTASSIUM 4.1 MEQ/L (3.5-5.1)
[2016-10-08 05:58] LABS: MAGNESIUM 2.1 MG/DL (1.5-2.5)
[2016-10-08] MEDS: HEPARIN SODIUM - SQ 10,000 UNITS/ML VIAL SQ SCH ×2 (06:17→17:00)
[2016-10-08] MEDS: INSULIN ASPART 1,000 UNITS/10 ML VIAL SQ SCH ×3 (09:00→18:00)
--- NOTE | 2016-10-08 09:36 | HHI.PR ---
Subjective Remarks Follow-up heart failure. She is doing better no more chest pain. Patient states she usually takes 40 mg Lasix every day but yesterday morning prior to admission she took 80 mg. Discussed with RN. Awaiting return call from cardiology Objective Vitals Vital Signs Date Time Temp Pulse Resp B/P Pulse Ox O2 Delivery O2 Flow Rate FiO2 10/08/16 08:00 97.5 78 20 112/70 96 10/08/16 04:00 96.5 67 22 110/63 98 10/08/16 03:17 95 21 10/08/16 00:00 97.8 65 21 101/41 95 10/07/16 20:08 71 10/07/16 20:00 98.9 72 21 109/65 95 10/07/16 17:41 68 18 105/48 94 Room Air 10/07/16 17:32 68 18 93/40 100 BiPAP 10/07/16 17:00 93 21 10/07/16 15:40 68 18 102/53 95 Room Air 10/07/16 15:16 63 18 95/46 94 Room Air 10/07/16 14:34 72 115/66 118/66 10/07/16 14:33 18 97 Room Air 10/07/16 14:33 97 Room Air 10/07/16 14:15 97 Room Air 10/07/16 14:14 98.1 72 18 116/55 97 I/O 10/07/16 10/07/16 10/07/16 10/08/16 10/08/16 10/08/16 07:00 15:00 23:00 07:00 15:00 23:00 Intake Total 120 ml 480 ml Balance 120 ml 480 ml Intake Oral 120 ml 480 ml # Voids 2 2 # Bowel Movements 0 0 Result Diagram: 10/08/16 0438 10/08/16 0438 Imaging Last Impressions Chest X-Ray 10/07/16 1409 Signed Impressions: Service Date/Time: Friday, October 07, 2016 14:16 - CONCLUSION: The lungs are clear. Sekou Aguilera MD Objective Remarks GENERAL: This is a well-nourished, well-developed patient, in no apparent distress. SKIN: No rashes, ecchymoses or lesions. Cool and dry. HEAD: Atraumatic. Normocephalic. No temporal or scalp tenderness. EYES: Pupils equal round and reactive. Extraocular motions intact. No scleral icterus. No injection or drainage. ENT: Nose without bleeding, purulent drainage or septal hematoma. Throat without erythema, tonsillar hypertrophy or exudate. Uvula midline. Airway patent. NECK: Trachea midline. No JVD or lymphadenopathy. Supple, nontender, no meningeal signs. CARDIOVASCULAR: Regular rate and rhythm without murmurs, gallops, or rubs. RESPIRATORY: Decreased Breath sounds equal bilaterally. No wheezes, rales, or rhonchi. GASTROINTESTINAL: Abdomen soft, non-tender, nondistended. No guarding. MUSCULOSKELETAL: Extremities without clubbing, cyanosis, or edema. No joint tenderness, effusion, or edema noted. No calf tenderness. Negative Homans sign bilaterally. NEUROLOGICAL: Awake and alert. Cranial nerves II through XII intact. Motor and sensory grossly within normal limits. Five out of 5 muscle strength in all muscle groups. Normal speech. Procedures none A/P Problem List: (1) Chest pain ICD Code: R07.9 Status: Acute (2) Dyspnea on exertion ICD Code: R06.09 Status: Acute Assessment and Plan 61-year-old female complaining of chest pain and shortness of breath. Patient' s states her symptoms are similar when she required stenting in the past. She has history of coronary artery disease status post multiple stents and CABG. Stress test negative for ischemia back in May 2016 but was a limited exam secondary to patient's habitus. Ruled out for DC. Patient with resolved chest pain. Continue aspirin, Plavix, Lopressor and nitrates. Pain management with Lortab and IV morphine. We'll discuss with cardiology awaiting return call CHF exac. Patient with elevated BNP we'll obtain 2-D echo results performed a month ago. Improving continue diuresis with IV Lasix with hold parameters, patient has soft BP. CHF education, I/O and monitor weight Chronic medical conditions of PAD, hyperlipidemia, COPD, diabetes mellitus, hypertension, COPD and chronic kidney disease stage III. Stable continue outpatient medications as appropriate. Monitor fingerstick with sliding scale coverage DVT prophylaxis with SCD and heparin. Discharge Planning Discharge when cleared by cardiology Problem Qualifiers (1) Chest pain: Qualified Code: R07.9 - Chest pain, unspecified type Chele Feng MD Oct 08, 2016 09:36
[2016-10-08] MEDS: SODIUM CHLORIDE 0.9% FLUSH 10 ML FLUSH IV FLUSH SCH ×2 (10:13→20:53)
[2016-10-08] MEDS: INSULIN DETEMIR 100 UNITS/ML VIAL SQ SCH ×2 (10:14→20:54)
[2016-10-08] MEDS: FUROSEMIDE 20 MG/2 ML VIAL IV PUSH SCH ×2 (10:16→18:00)
[2016-10-08] MEDS: CLOPIDOGREL 75 MG TAB PO SCH (10:18)
[2016-10-08] MEDS: METOPROLOL TARTRATE 50 MG TAB PO SCH ×2 (10:18→20:53)
[2016-10-08] MEDS: PANTOPRAZOLE SOD 20 MG DELAYED RELEASE TAB PO SCH ×2 (10:18→20:54)
[2016-10-08] MEDS: ASPIRIN EC 81 MG TABEC PO SCH (10:18)
[2016-10-08] MEDS: GABAPENTIN 400 MG CAP PO SCH ×2 (10:18→20:53)
--- NOTE | 2016-10-08 11:03 | HHI.DCPOC ---
Discharge Care Plan Diagnosis: (1) Chest pain (2) Dyspnea on exertion Your Health Problems Are: Difficulty with ADL Exercise Tolerance Goals to Promote Your Health * To prevent worsening of your condition and complications * To maintain your health at the optimal level Directions to Meet Your Goals Take your medications as prescribed Follow your dietary instruction Follow activity as directed Keep your appointments as scheduled Take your immunizations and boosters as scheduled If your symptoms worsen call your PCP, if no PCP go to Urgent Care Center or Emergency Room Smoking is Dangerous to Your Health. Avoid second hand smoke Call the 24-hour hour crisis hotline for domestic abuse at Chele Feng MD Oct 08, 2016 11:03
--- NOTE | 2016-10-08 12:28 | EKG ---
Date Performed: 10/07/2016 Time Performed: 20:49:42 PTAGE: 60 years EKG: Sinus rhythm . Poor R wave progression - probable normal variant Low QRS voltages in precordial leads Borderline E CG Compared to prior tracing no significant change PREVIOUS TRACING : 10/07/2016 18.07 DOCTOR: Dany Smith Interpretating Date/Time 10/08/2016 12:27:42
--- NOTE | 2016-10-08 12:28 | EKG ---
Date Performed: 10/07/2016 Time Performed: 18:07:14 PTAGE: 60 years EKG: Sinus rhythm Poor R wave progression - probable normal variant Low QRS voltages in precordial leads Borderline EC G Compared to prior tracing no significant change PREVIOUS TRACING : 10/07/2016 13.59 DOCTOR: Dany Smith Interpretating Date/Time 10/08/2016 12:27:51
--- NOTE | 2016-10-08 12:28 | EKG ---
Date Performed: 10/07/2016 Time Performed: 13:59:58 PTAGE: 60 years EKG: Sinus rhythm Poor R wave progression - probable normal variant Borderline ECG Compared to prior tracing no signif icant change PREVIOUS TRACING : 08/10/2016 17.08 DOCTOR: Dnay Smith Interpretating Date/Time 10/08/2016 12:27:59
[2016-10-08] MEDS ORDERED: SODIUM CHLOR 0.9% 1000 ML INJ 1,000 ML IV SCH ×2 (12:33→16:19)
--- NOTE | 2016-10-08 13:17 | MB ---
cc: TIAGO MARTIN MD DATE OF CONSULTATION 10/08/2016 REASON FOR CONSULTATION Chest pain HISTORY OF PRESENT ILLNESS Ms. Oro is a 60-year-old female who does have a history of prior CABG, hypertension, hyperlipidemia and obstructive sleep apnea. The patient reports that she has had progressive episodes of shortness of breath. There was an episode that awoke her at night and was associated with chest pain. She is pain-free right now. She notes her breathing is better after the Lasix. Nonetheless, she is quite concerned because these symptoms are the same when she had her bypass. The patient also notes that she has had a recent pulmonary workup and was told that that was normal. She notes that she has been compliant with her sleep apnea machine and that was also recently evaluated. PAST MEDICAL HISTORY Significant for: 1. Anemia 2. Anxiety 3. Mild to moderate aortic regurgitation with mild aortic stenosis and a mean gradient of 13 millimeters of mercury. 4. There was also my no mitral stenosis with a mean gradient of 6 mmHg. 5. Sleep apnea 6. Tipton's esophagus 7. CAD with multiple stents in the RCA and LAD. She subsequently had a single-vessel CABG of the SVG to RCA in 2012. Nuclear stress testing June 09, 2016 was limited due to body habitus, but no definite ischemia and normal LV function was noted. 8. She also has a history of TIA. 9. Chronic kidney disease 10. Diabetes 11. GERD 12. Fatty liver 13. Hemorrhoids 14. Hyperlipidemia 15. Hypertension 16. Melanoma 17. PVD with recent intervention. 18. She also has a bad back. MEDICATIONS Outpatient medications include: 1. Aspirin 2. Gabapentin 3. Omeprazole 4. Ropinirole 5. Tizanidine 6. Metformin 7. Levemir 8. Percocet 9. Xanax 10. Allopurinol 11. Lipitor 12. Cymbalta 13. Plavix 14. Spironolactone 15. Potassium 16. Lasix 17. Januvia 18. Metoprolol FAMILY HISTORY Noncontributory REVIEW OF SYSTEMS Except what is mentioned in the HPI, all 12 systems are negative. SOCIAL HISTORY The patient is a former smoker. ALLERGIES BENICAR, COZAAR, PROTAMINE PHYSICAL EXAM VITAL SIGNS: 97.5, 78, 20, 112/70. GENERAL: She is a morbidly obese female who is in no apparent distress. NECK: Her neck is free from JVD. LUNGS: The lungs are clear to auscultation. CARDIOVASCULAR: She has a normal S1 and S2. There is a 2/6 systolic murmur. No rubs or gallops are appreciated. ABDOMEN: Soft. EXTREMITIES: Free from edema. LAB VALUES Significant for a hemoglobin of 9.4 and a creatinine of 1.5. This is down from 1.62. Her serial cardiac are 0.02/0.02. The BNP is 376. Chest x-ray was clear. EKG is negative for any acute changes. IMPRESSION Chest pain - The patient is having atypical symptoms which could potentially represent refractory cardiac symptoms as they are virtually identical to one of her prior presentations. The patient did have a nonischemic nuclear stress test several months ago. She is rather insistent on having a cardiac catheterization. We did discuss that there are additional risks with this approach. The patient understands that there is at least a several percent risk for , [place], CVA, progression of her renal insufficiency. Despite these risks, she is willing to proceed. I have spoken with Dr. Caldera who is agreeable. Renal insufficiency - The patient's creatinine is mildly elevated. This does appear to be improved from her baseline at her prior visit where her creatinine was 1.6-1.7. Diabetes - The Metformin has been held. Tiago Martin M.D. [facility]/[place] /12:25 PM /1:03 PM
[2016-10-08] MEDS ORDERED: IOHEXOL 350 MG/ML 50 ML BTL (for Cath Lab) OTHER ONE (14:21)
[2016-10-08] MEDS ORDERED: HEPARIN-NS/PF INJ 500 ML ONE (15:23)
[2016-10-08] MEDS ORDERED: MIDAZOLAM HCL 2 MG/2 ML VIAL ONE (15:24)
--- NOTE | 2016-10-08 16:15 | MB ---
cc: COLBY ROMERO DATE OF CONSULTATION: 10/08/2016. REASON FOR CONSULTATION: Interventional cardiology consultation for chest pain. HISTORY OF PRESENT ILLNESS: 60-year-old female with past medical history significant for coronary artery disease status post percutaneous coronary intervention and one vessel coronary artery bypass grafting, hypertension, hyperlipidemia, obesity and obstructive sleep apnea who presented to the emergency department at [facility] with complaints of progressive shortness of breath associated with chest pain. She reports that the symptoms are similar to when she had open heart surgery. In [facility], she was admitted to the hospital and she was seen by cardiology, Dr. Jazlyn Seay and she ruled out for myocardial infarction by cardiac enzymes. There was a discussion with the patient to do a stress test, however she declined, she prefers to get a coronary angiogram in addition to that according to her she had an unremarkable stress test a couple of months ago. Interventional cardiology has been consulted for left heart catheterization / percutaneous coronary intervention. PAST MEDICAL HISTORY: 1. Anemia. 2. Anxiety. 3. Coronary artery disease status post one-vessel CABG. 4. Percutaneous coronary intervention. 5. Sleep apnea. 6. Gastroesophageal reflux disease (GERD). 7. Diabetes. 8. Hypertension. 9. Hyperlipidemia. 10. Peripheral vascular disease. 11. TIA. 12. Obesity. PAST SURGICAL HISTORY: 1. CABG. CARDIAC MEDICATIONS AT HOME: 1. Aspirin. 2. Lipitor. 3. Plavix. 4. Spironolactone. 5. Lasix. 6. Metoprolol. FAMILY HISTORY: Noncontributory. REVIEW OF SYSTEMS: Negative except for the ones mentioned in the history of present illness. SOCIAL HISTORY: The patient is a former smoker, denies illicit drug use. No alcohol use. ALLERGIES: 1. BENICAR. 2. COZAAR. 3. PROTAMINE. PHYSICAL EXAMINATION: VITAL SIGNS: Temperature 97, respiratory rate 18, heart rate 72, blood pressure 142/65, 02 saturation 95% in room air. GENERAL: Awake, alert and oriented times three in no acute distress. NECK: No jugular venous distention. No carotid bruits. HEART: Regular rate and rhythm. No murmurs, rubs or gallops. LUNGS: Clear to auscultation bilaterally. No wheezes, rales or rhonchi. ABDOMEN: The abdomen is soft, nontender and nondistended. Obese. Positive bowel sounds. EXTREMITIES: No cyanosis or edema. Pulses present. DATA: CBC: Hemoglobin 9.4, hematocrit 29.8, platelet count 313,000. INR 1. Chemistries: Sodium 141, potassium 4.1, BUN 23, creatinine 1.5. Troponin less than 0.02 x3. BNP 376. IMAGING STUDIES: Chest x-ray shows no acute cardiopulmonary process. EKGS: EKG shows normal sinus rhythm with poor R wave progression. ASSESSMENT AND PLAN: 60-year-old female with atypical chest pain and known history of coronary artery disease complaining of angina. She has been transferred from [facility] to the [facility] for left heart catheterization. The risks and benefits of left heart catheterization / percutaneous coronary intervention including but not limited to neurovascular trauma, bleeding, infection, acute kidney injury, emergent bypass surgery, stroke and have been explained to the patient. The patient understands the risk and she is willing to proceed. Thank you for the opportunity to participate in the care of this patient. Further therapy to be determined. MD ROBERTO Mays/JCC /3:37 PM /3:59 PM MTDPresley
[2016-10-08] MEDS ORDERED: ONDANSETRON HCL 4 MG/2 ML VIAL IV PRN (16:30)
[2016-10-08] MEDS ORDERED: ATROPINE SULFATE 1 MG/ML VIAL IV PRN (16:30)
--- NOTE | 2016-10-08 16:52 | MA ---
cc: COLBY ROMERO DATE: 10/08/2016. PROCEDURE PERFORMED: 1. Left heart catheterization. 2. Selective right and left heart coronary angiography. 3. Saphenous vein graft to the posterior descending artery angiography. 4. Left ventricle pressure recordings. 5. Selective right common femoral artery angiography. INDICATIONS FOR THE PROCEDURE: Angina. Known coronary artery disease. DESCRIPTION OF THE PROCEDURE IN DETAIL: Consent signed. The patient was taken to the cardiac organic lab worker in a fasting state. The right groin was prepped and draped in sterile fashion using 1% lidocaine for local anesthesia and a micropuncture kit. A 5-Spanish sheath was inserted into the right common femoral artery. Selective right common femoral artery angiography was performed to confirm position of the sheath. Then selective right and left coronary angiography was performed with a JR-4 and JL- 4 diagnostic catheters. This was followed by angiography to the saphenous vein graft going to the posterior descending artery. Angiography was taken in multiple views. Then a JR-4 over the wire was introduced into the left ventricle and it was followed by pressure recordings and pullback. The patient tolerated the procedure well without complications. Estimated blood loss less than 30 mL. Total contrast used 35 mL. The right groin access site was closed with a VASCADE closure device. RESULTS: Left ventricular end diastolic pressure was 20. There was no gradient upon pullback from the left ventricle to aorta. ANGIOGRAPHY: 1. Right coronary artery - 100% occluded. 2. Left main - patient with XIN III flow. 3. Left anterior descending - transapical vessel that has minimal luminal irregularities throughout, 20% lesion proximally and diffuse disease distally. 4. The diagonals are patent with nonobstructive coronary artery disease. 5. The left circumflex artery is patent. This vessel has a small AV groove segment and two prominent obtuse marginals which are patent with nonobstructive coronary artery disease. 6. The right coronary artery is 100% occluded. GRAFT ANGIOGRAPHY: There is only one graft going to the posterior descending artery which is patent. CONCLUSIONS: 1. Single vessel CAD with a patent 1 out of 1 graft, saphenous vein graft to posterior descending artery. 2. Elevated left ventricular end diastolic pressure. RECOMMENDATIONS: 1. Continue aggressive medical management for secondary prevention of coronary artery disease. 2. The patient will also benefit from weight loss management and starting a long -acting nitrate. MD ROBERTO Mays/BRUNO /4:24 PM /4:40 PM [facility]
[2016-10-08] MEDS: ALLOPURINOL 300 MG TAB PO SCH (20:53)
[2016-10-08] MEDS: ATORVASTATIN 20 MG TAB PO SCH (20:53)
[2016-10-08] MEDS: DULoxetine HCl DR 60 MG CAP PO SCH (21:08)
[2016-10-09] VITALS (19 sets, daily range): BP systolic 120–163; BP diastolic 59–72; PULSE 68–84; RESP 18–20; TEMP 98.1–99.1; O2SAT 93–97
[2016-10-09] MEDS: HEPARIN SODIUM - SQ 10,000 UNITS/ML VIAL SQ SCH (05:13)
[2016-10-09] MEDS: INSULIN ASPART SUPPLEMENTAL SCALE SQ SCH ×2 (06:02→11:00)
[2016-10-09 07:05] LABS: BICARBONATE 28.4 MEQ/L (21.0-32.0); MAGNESIUM 2.1 MG/DL (1.5-2.5); POTASSIUM 3.9 MEQ/L (3.5-5.1)
[2016-10-09] MEDS: INSULIN DETEMIR 100 UNITS/ML VIAL SQ SCH (09:00)
[2016-10-09] MEDS: INSULIN ASPART 1,000 UNITS/10 ML VIAL SQ SCH ×2 (09:00→13:00)
[2016-10-09] MEDS: FUROSEMIDE 20 MG/2 ML VIAL IV PUSH SCH (09:00)
[2016-10-09] MEDS: SODIUM CHLORIDE 0.9% FLUSH 10 ML FLUSH IV FLUSH SCH (09:00)
[2016-10-09] MEDS: METOPROLOL TARTRATE 50 MG TAB PO SCH (09:24)
[2016-10-09] MEDS: CLOPIDOGREL 75 MG TAB PO SCH (09:24)
[2016-10-09] MEDS: ASPIRIN EC 81 MG TABEC PO SCH (09:24)
[2016-10-09] MEDS: GABAPENTIN 400 MG CAP PO SCH (09:24)
[2016-10-09] MEDS: PANTOPRAZOLE SOD 20 MG DELAYED RELEASE TAB PO SCH (09:24)
[2016-10-09] MEDS: oxyCODONE/ACETAMINOPHEN 10 MG/325 MG TAB PO PRN (10:26)
[2016-10-09] MEDS ORDERED: DILT-60 PO (12:10)
[2016-10-09] MEDS ORDERED: LORA10TA PO (12:10)
[2016-10-09] MEDS ORDERED: POTASSIUM CHLORIDE 20 MEQ CONTROLLED RELEASE TAB PO PRN (12:15)
[2016-10-09] MEDS ORDERED: FUROSEMIDE 80 MG TAB PO PRN (12:15)
--- NOTE | 2016-10-09 14:25 | HHI.DS ---
Discharge Summary Admission Date Oct 07, 2016 at 16:14 Discharge Date: Oct 09, 2016 Admitting Diagnosis chest pain, rule out ACS, renal insufficiency (1) Chest pain ICD Code: R07.9 (2) Dyspnea on exertion ICD Code: R06.09 Diagnosis: Secondary Procedures none Brief History - From Admission This is a 60-year-old female presented to the emergency room complaining of chest pain and shortness of breath. Started 2 months ago when she developed dyspnea on exertion which has been progressive. Early this morning she woke up with difficulty breathing. She has orthopnea, lower extremity swelling especially at the end of the day and weight gain 1-2 pounds, she takes Aldactone and as needed Lasix. She was evaluated by her adjunct trainer a month ago and considered ERIN with her abnormal echocardiogram showing leaky valve but her BNP was not significantly elevated and was referred to a class a lineman who performed pulmonary function test and was told that her shortness of breath is likely secondary to her heart condition. Today she also complained of retrosternal pressure scale of 4-10 with crampy discomfort on her left chest associated with dizziness and palpitations. She is worried because her symptoms are similar in the past when she ruled out for DC with negative stress test but required stenting. She has strong history of coronary artery disease including multiple stents and a bypass surgery. Took her aspirin and Plavix today. CBC/BMP: 10/08/16 0438 10/09/16 0610 Significant Findings Laboratory Tests Test 10/07/16 10/07/16 10/07/16 10/08/16 14:25 18:00 20:55 04:38 Red Blood Count 3.07 MIL/MM3 3.20 MIL/MM3 (4.00-5.30) (4.00-5.30) Hemoglobin 9.4 GM/DL 9.4 GM/DL (11.6-15.3) (11.6-15.3) Hematocrit 29.1 % 29.8 % (35.0-46.0) (35.0-46.0) Neutrophils (%) (Auto) 77.4 % (16.0-70.0) Neutrophils # (Auto) 8.0 TH/MM3 (1.8-7.7) Blood Urea Nitrogen 22 MG/DL (7-18) 23 MG/DL (7-18) Creatinine 1.40 MG/DL 1.50 MG/DL (0.50-1.00) (0.50-1.00) Estimat Glomerular Filtration 38 ML/MIN (>89) 35 ML/MIN (>89) Rate Random Glucose 184 MG/DL 128 MG/DL (74-106) (74-106) Troponin I LESS THAN 0.02 LESS THAN 0.02 LESS THAN 0.02 NG/ML NG/ML NG/ML (0.02-0.05) (0.02-0.05) (0.02-0.05) B-Type Natriuretic Peptide 376 PG/ML (0-100) Mean Corpuscular Hemoglobin 31.6 % Concent (32.0-36.0) Test 10/09/16 06:10 Blood Urea Nitrogen 21 MG/DL (7-18) Creatinine 1.37 MG/DL (0.50-1.00) Estimat Glomerular Filtration 39 ML/MIN (>89) Rate Random Glucose 135 MG/DL (74-106) PE at Discharge GENERAL: This is a well-nourished, well-developed patient, in no apparent distress. SKIN: No rashes, ecchymoses or lesions. Cool and dry. HEAD: Atraumatic. Normocephalic. No temporal or scalp tenderness. EYES: Pupils equal round and reactive. Extraocular motions intact. No scleral icterus. No injection or drainage. ENT: Nose without bleeding, purulent drainage or septal hematoma. Throat without erythema, tonsillar hypertrophy or exudate. Uvula midline. Airway patent. NECK: Trachea midline. No JVD or lymphadenopathy. Supple, nontender, no meningeal signs. CARDIOVASCULAR: Regular rate and rhythm without murmurs, gallops, or rubs. RESPIRATORY: Decreased Breath sounds equal bilaterally. No wheezes, rales, or rhonchi. GASTROINTESTINAL: Abdomen soft, non-tender, nondistended. No guarding. MUSCULOSKELETAL: Extremities without clubbing, cyanosis, or edema. No joint tenderness, effusion, or edema noted. No calf tenderness. Negative Homans sign bilaterally. NEUROLOGICAL: Awake and alert. Cranial nerves II through XII intact. Motor and sensory grossly within normal limits. Five out of 5 muscle strength in all muscle groups. Normal speech. Hospital Course Mrs. Oro is a 60 year old female. She was admitted with chest pain and has a history of CAD with bypass. A heart cath was performed and shows no disease significant for stenting. She is cleared by cardiology. When I visited her she is complaining about recurrent dyspnea, which is ongoing and independent of her recent chest pain. Cardiac evaluations and pulmonary evaluations do not reveal any specific etiology per the patient. Alternate causes may be allergy related or an underlying pulmonary hypertention. She reports high blood pressures occasionally as an outpatient. Related pulmonary edema from HTN, pulmonary hypertension, or transient flash pulmonary edema could lead to episodic episodes of dyspnea/hypoxia. Treatment trials of Loratadine to cover for allergies are discussed. I am also adding diltiazem both for BP control and for empiric coverage of possible pulmonary hypertension. I asked if she could keep track of her symptoms through time and report to an MD for any positive changes or stop the treatments if she finds no benefit by the next two weeks. Pt Condition on Discharge: Stable Discharge Disposition: Discharge Home Discharge Time: <= 30 minutes Discharge Instructions DIET: Follow Instructions for: Heart Healthy Diet Activities you can perform: Regular-No Restrictions Follow up Referrals: Cardiology - 1 Week PCP Follow-up - 2-3 Days New Medications: Diltiazem CD 24 HR (Diltiazem CD 24 HR) 120 Mg Caper 120 MG PO DAILY #30 Ref 0 CAP Loratadine (Loratadine) 10 Mg Tab 10 MG PO HS Allergy Management #30 Ref 0 TAB Continued Medications: Allopurinol (Allopurinol) 300 Mg Tab 300 MG PO HS Gout #30 Ref 0 TAB Alprazolam (Xanax) 1 Mg Tab 1 MG PO Q6H PRN ANXIETY Ref [address] (Aspirin DR) 81 Mg Tabdr 81 MG PO DAILY Ref 0 TAB Atorvastatin (Lipitor) 20 Mg Tab 20 MG PO HS Cholesterol Management #30 Ref 0 TAB Clopidogrel (Plavix) 75 Mg Tab 75 MG PO DAILY Blood Clot Prevention #30 Ref 0 TAB Cyanocobalamin (B-12) Unknown Strength Tab Unknown Dose PO DAILY Nutritional Supplement #1 Ref [address] (Cymbalta DR) 60 Mg Capdr 60 MG PO HS #30 Ref 0 CAP Furosemide (Lasix) 80 Mg Tab 80 MG PO DAILY PRN EDEMA #30 Ref 0 TAB Gabapentin (Gabapentin) 800 Mg Tab 800 MG PO BID #90 Ref 0 TAB Insulin Aspart Inj (Novolog Inj) 1,000 Unit/10 Ml Vial 25 UNITS SQ TID Sliding Scale as directed. Blood Sugar Management #10 Ref 0 ML Insulin Detemir Inj (Levemir Inj) 1,000 unit/ 10 ML Vial 60 UNITS SQ BID Do not mix with any other Insulin. Blood Sugar Management Ref 0 VIAL Magnesium (Magnesium) Unknown Strength Tab Unknown Dose PO DAILY TAB Metoprolol Tartrate (Metoprolol Tartrate) 50 Mg Tab 50 MG PO BID #30 Ref 0 TAB Omeprazole (Omeprazole) 20 Mg Tab 20 MG PO BID #30 Ref 0 TAB Oxycodone-Acetaminophen (Percocet) 10-325 mg Tab 1 TAB PO Q4H PRN PAIN Ref 0 TAB Potassium Chloride ER (Potassium Chloride ER) 20 Meq Tab 20 MEQ PO DAILY PRN WHEN TAKING LASIX #30 Ref 0 TAB Ropinirole (Ropinirole) 2 Mg Tab 2 MG PO TID #90 Ref 0 TAB Sitagliptin (Januvia) 50 Mg Tab 50 MG PO DAILY Blood Sugar Management #30 Ref 0 TAB Spironolactone (Spironolactone) 50 Mg Tab 50 MG PO DAILY #30 Ref 0 TAB Tizanidine (Tizanidine) 4 Mg Cap 4 MG PO QID PRN MUSCLE SPASM Ref 0 CAP Chance Hawkins MD Oct 09, 2016 14:25
[2016-10-10] MEDS ORDERED: SPIRONOLACTONE 50 MG TAB PO SCH (09:00)
[2016-10-10] MEDS ORDERED: metFORMIN HCL 500 MG TAB PO SCH (09:00)
== END 2016-10-09 14:22 | disposition home or self-care (01) ==
LOC: PHED 13:54 → PHEDA 16:14 → PH3A 18:20 → HCIS 10-08 19:14
PROVIDERS: ADMIT Hospitalist; ATTEND Hospitalist
DX: R07.9 Chest pain, unspecified (principal); I25.119 Atherosclerotic heart disease of native coronary artery with unspecified angina pectoris; Z79.01 Long term (current) use of anticoagulants; E78.00 Pure hypercholesterolemia, unspecified; J44.9 Chronic obstructive pulmonary disease, unspecified; Z79.4 Long term (current) use of insulin; N18.3 Chronic kidney disease, stage 3 (moderate); R00.2 Palpitations; R42 Dizziness and giddiness; R06.09 Other forms of dyspnea; Z95.1 Presence of aortocoronary bypass graft; Z95.5 Presence of coronary angioplasty implant and graft; I13.0 Hypertensive heart and chronic kidney disease with heart failure and stage 1 through stage 4 chronic kidney disease, or unspecified chronic kidney disease; E11.22 Type 2 diabetes mellitus with diabetic chronic kidney disease; E78.5 Hyperlipidemia, unspecified; G47.33 Obstructive sleep apnea (adult) (pediatric); D64.9 Anemia, unspecified; F41.9 Anxiety disorder, unspecified; I35.0 Nonrheumatic aortic (valve) stenosis; I35.1 Nonrheumatic aortic (valve) insufficiency; K22.70 Barrett's esophagus without dysplasia; Z86.73 Personal history of transient ischemic attack (TIA), and cerebral infarction without residual deficits; K21.9 Gastro-esophageal reflux disease without esophagitis; K76.0 Fatty (change of) liver, not elsewhere classified; I73.9 Peripheral vascular disease, unspecified; Z79.899 Other long term (current) drug therapy; Z87.891 Personal history of nicotine dependence; E66.01 Morbid (severe) obesity due to excess calories; I27.2 Other secondary pulmonary hypertension
CPT/HCPCS: 71010; 80048; 82550; 82948; 83735; 83880; 84484; 85025; 85610; 85730; 93005; 93454; 99285; C1760; C1769; C1893; G0269; G0378; J1644; J1815; J1940; J2250; J2270; J3010; J7030; Q9967

== ENCOUNTER 2016-11-21 20:38 | Emergency (ER) | payer OTHER ==
[~2016-11-21 20:38] MED LIST changes: +DILT-60 PO; +LORA10TA PO
[2016-11-21 20:42] VITALS: BP 147/69; PULSE 84; RESP 20; TEMP 97.5; O2SAT 96
[2016-11-21] MEDS ORDERED: PRED20 PO (21:14)
[2016-11-21] MEDS ORDERED: ACYC800T PO (21:14)
--- NOTE | 2016-11-21 21:20 | PD ---
HPI Chief Complaint: Skin Problem Time Seen by Provider: 21:05 Travel History International Travel<30 days: No Contact w/Intl Traveler<30days: No Traveled to known affect area: No History of Present Illness HPI 61-year-old female with a one-day history of painful rash left upper forehead. Patient reports she felt pain in her left forehead and hairline approximately 3 days ago. She then developed a rash yesterday. She came to the emergency department for evaluation of shingles today. The rash is localized to the upper forehead on the left side. There is no rash extending into the eye or eyelid. She denies any eye pain. No visual changes. Patient reports she had a previous shingles outbreak several years ago and the pain was similar. PFSH Past Medical History Hx Anticoagulant Therapy: Yes Cardiac Catheterization: Yes (6 STENTS) Cardiovascular Problems: Yes High Cholesterol: Yes COPD: Yes Diabetes: Yes Patient Takes Glucophage: No Diminished Hearing: No Hypertension: Yes Musculoskeletal: No Neurologic: No Respiratory: Yes (COPD) Tetanus Vaccination: Unknown Influenza Vaccination: Yes ?: Not : 3 Para: 3 Tubal Ligation: Yes Past Surgical History Appendectomy: Yes Coronary Artery Bypass Graft: Yes (CABGX1) Hysterectomy: Yes Tonsillectomy: Yes Other Surgery: Yes Social History Alcohol Use: Yes (rarely) Tobacco Use: No Substance Use: No Allergies-Medications (Allergen,Severity, Reaction): Coded Allergies: Benicar (Verified Allergy, Severe, 10/07/16) Cozaar (Verified Allergy, Severe, 10/07/16) Reported Meds & Prescriptions Reported Meds & Active Scripts Active Prednisone 20 Mg Tab 40 Mg PO DAILY Take 40 mg (2 tablets) daily for 5 days Acyclovir 800 Mg Tab 800 Mg PO 5 TIMES A DAY Diltiazem CD 24 HR 120 Mg Caper 120 Mg PO DAILY Reported Magnesium Unknown Strength Tab Unknown Dose PO DAILY B-12 (Cyanocobalamin) Unknown Strength Tab Unknown Dose PO DAILY Aspirin DR (Aspirin) 81 Mg Tabdr 81 Mg PO DAILY Gabapentin 800 Mg Tab 800 Mg PO BID Omeprazole 20 Mg Tab 20 Mg PO BID Ropinirole 2 Mg Tab 2 Mg PO TID Tizanidine (Tizanidine HCl) 4 Mg Cap 4 Mg PO QID PRN Metformin (Metformin HCl) 500 Mg Tab 500 Mg PO BIDPC With meals Novolog Inj (Insulin Aspart) 1,000 Unit/10 Ml Vial 25 Units SQ TID Sliding Scale as directed. Levemir Inj (Insulin Detemir) 1,000 unit/ 10 ML Vial 60 Units SQ BID Do not mix with any other Insulin. Percocet (Oxycodone-Acetaminophen) 10-325 mg Tab 1 Tab PO Q4H PRN Xanax (Alprazolam) 1 Mg Tab 1 Mg PO Q6H PRN Allopurinol 300 Mg Tab 300 Mg PO HS Lipitor (Atorvastatin Calcium) 20 Mg Tab 20 Mg PO HS Cymbalta DR (Duloxetine HCl) 60 Mg Capdr 60 Mg PO HS Spironolactone 50 Mg Tab 50 Mg PO DAILY Potassium Chloride ER (Potassium Chloride) 20 Meq Tab 20 Meq PO DAILY PRN Lasix (Furosemide) 80 Mg Tab 80 Mg PO DAILY PRN Januvia (Sitagliptin Phosphate) 50 Mg Tab 50 Mg PO DAILY Metoprolol Tartrate 50 Mg Tab 50 Mg PO BID Review of Systems Except as stated in HPI: all other systems reviewed are Neg Physical Exam Narrative GENERAL: [Alert well-appearing female in no acute distress-] SKIN: Focused skin assessment warm/dry. Erythematous vesicular lesions to the left upper forehead extending into the hairline. HEAD: Atraumatic. Normocephalic. EYES: Pupils equal and round. No scleral icterus. No injection or drainage. Corneas clear. No lesions on the eyelids. Stahl lamp exam: No dendritic pattern or dye uptake. ENT: No nasal bleeding or discharge. Mucous membranes pink and moist. NECK: Trachea midline. No JVD. CARDIOVASCULAR: Regular rate and rhythm. No murmur appreciated. RESPIRATORY: No accessory muscle use. Clear to auscultation. Breath sounds equal bilaterally. GASTROINTESTINAL: Abdomen soft, non-tender, nondistended. Hepatic and splenic margins not palpable. MUSCULOSKELETAL: No obvious deformities. No clubbing. No cyanosis. No edema. NEUROLOGICAL: Awake and alert. No obvious cranial nerve deficits. Motor grossly within normal limits. Normal speech. PSYCHIATRIC: Appropriate mood and affect; insight and judgment normal. Data Data Last Documented VS Vital Signs Date Time Temp Pulse Resp B/P Pulse Ox O2 Delivery O2 Flow Rate FiO2 11/21/16 20:42 97.5 84 20 147/69 96 MDM Medical Decision Making Medical Screen Exam Complete: Yes Emergency Medical Condition: Yes Medical Record Reviewed: Yes Differential Diagnosis Herpes zoster, herpes keratitis Narrative Course 61-year-old female with a one-day history of painful rash left upper forehead. Patient reports she felt pain in her left forehead and hairline approximately 3 days ago. She then developed a rash yesterday. She came to the emergency department for evaluation of shingles today. The rash is localized to the upper forehead on the left side. There is no rash extending into the eye or eyelid. She denies any eye pain. Stahl lamp examination revealed no dye uptake no dendritic lesions. Eye is not injected. Patient will be treated with acyclovir and steroids for herpes zoster and educated on the severity if the rash should spread to the eyelid or eye. She agrees to follow up with her PCP on Wednesday or return to the emergency department should she develop eye pain or lesions on the eyelid. Diagnosis Primary Impression: Herpes zoster Qualified Code: B02.9 - Herpes zoster without complication Referrals: Primary Care Physician Patient Instructions: General Instructions, Shingles (ED) Additional Instructions: If you develop eye pain or the rash extends into the eyelid causing eye pain U need to return to the emergency department for evaluation. Take medications as prescribed. Follow with her primary doctor Wednesday for recheck. Scripts Prednisone 20 Mg Tab40 Mg PO DAILY #10 TAB Ref 0 Take 40 mg (2 tablets) daily for 5 days Prov:Yanira Silveira 11/21/16 Acyclovir 800 Mg [id number] Mg PO 5 TIMES A DAY #35 TAB Ref 0 Prov:Yanira Silveira 11/21/16 Disposition: 01 DISCHARGE HOME Condition: Stable Yanira Silveira Nov 21, 2016 21:20
== END 2016-11-21 21:26 | disposition home or self-care (01) ==
LOC: PHEFT 20:38
DX: B02.9 Zoster without complications (principal); E78.00 Pure hypercholesterolemia, unspecified; J44.9 Chronic obstructive pulmonary disease, unspecified; E11.9 Type 2 diabetes mellitus without complications; I10 Essential (primary) hypertension; Z95.1 Presence of aortocoronary bypass graft; Z95.5 Presence of coronary angioplasty implant and graft; Z79.01 Long term (current) use of anticoagulants
CPT/HCPCS: 99284

== ENCOUNTER 2017-01-26 01:02 | Emergency (ER) | payer OTHER ==
[~2017-01-26] VITALS: Ht 162.6 cm; Wt 108.2 kg
[~2017-01-26 01:02] MED LIST changes: +ACYC800T PO; -LORA10TA PO; -PLAV75TA29 PO; +PRED20 PO
[2017-01-26 01:15] VITALS: BP 115/56; PULSE 71; RESP 18; TEMP 98.3; O2SAT 98
[2017-01-26] MEDS ORDERED: FERR325T8 PO (01:29)
[2017-01-26] MEDS ORDERED: METO50TA PO (01:29)
[2017-01-26] MEDS ORDERED: CALC0.25 PO (01:29)
[2017-01-26] MEDS ORDERED: FENO160T PO (01:29)
[2017-01-26] MEDS ORDERED: BETH25TA2 PO (01:29)
[2017-01-26] MEDS ORDERED: FURO40TA PO (01:29)
--- NOTE | 2017-01-26 01:39 | PD ---
HPI Chief Complaint: Numbness/Tingling Time Seen by Provider: 01:17 Travel History International Travel<30 days: No Contact w/Intl Traveler<30days: No Traveled to known affect area: No History of Present Illness HPI The patient is a 61 year old female who presents to the [facility] emergency department with a history of tingling sensations all over her body that began at 9PM. She also has an unsteady gait with visual disturbances that look like smoke in the air. She reports that this is associated with intermittently slurred speech. These symptoms have been coming and going for 5 years. She is followed by a local neurologist for this, Dr. Ross. On review of systems, she also reports having a sensation of shortness of breath with taking a deep breath. The patient denies any recent fever, cough, congestion, neck pain, chest pain, abdominal pain, vomiting, diarrhea, urinary symptoms, one-sided weakness, facial droop, difficulty with word finding ability , extremity weakness. She does however report having fatigue. The patient is currently on Percocet for chronic pain in her back. On review of systems she does report having chronic congestion related to allergies. She has a history of coronary artery disease, congestive heart failure, and COPD. Her stress test was within the last 6 months. 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 [facility] Past Medical History Narrative Medical The patient's past medical history is significant for chronic back pain managed with Percocet, htn, anemic, diabetes, hyperlipidemia, copd, h/o CAD with 6 stents placed, CABG 1 vs in 1996. Hx Anticoagulant Therapy: Yes Cardiac Catheterization: Yes (6 STENTS) Cardiovascular Problems: Yes High Cholesterol: Yes COPD: Yes Diabetes: Yes Patient Takes Glucophage: Yes Diminished Hearing: No Gout: Yes Hypertension: Yes Musculoskeletal: No Neurologic: No Respiratory: Yes (COPD) Sleep Apnea: Yes (bipap) Menopausal: Yes : 3 Para: 3 Tubal Ligation: Yes Past Surgical History Narrative Surgical The patient's past surgical history is significant for CABG 1 vs, cardiac stents x6, and appendectomy, and a hysterectomy. Appendectomy: Yes Coronary Artery Bypass Graft: Yes (CABGX1) Hysterectomy: Yes Tonsillectomy: Yes Other Surgery: Yes Social History Alcohol Use: Yes (rarely) Tobacco Use: No (quit 15 years ago.) Substance Use: No Allergies-Medications (Allergen,Severity, Reaction): Coded Allergies: Benicar (Verified Allergy, Severe, 01/26/17) Cozaar (Verified Allergy, Severe, 01/26/17) Reported Meds & Prescriptions Reported Meds & Active Scripts Active Reported Fenofibrate 160 Mg Tab 160 Mg PO DAILY Ferrous Sulfate 325 Mg (65 Mg Iron) Tablet 325 Mg PO DAILY Bethanechol 25 Mg Tab 12.5 Mg PO QID Calcitriol 0.25 Mcg Cap 0.25 Mcg PO DAILY Metoprolol Tartrate 50 Mg Tab 50 Mg PO DAILY Furosemide 40 Mg Tab 40 Mg PO DAILY Magnesium Unknown Strength Tab Unknown Dose PO DAILY B-12 (Cyanocobalamin) Unknown Strength Tab Unknown Dose PO DAILY Aspirin DR (Aspirin) 81 Mg Tabdr 81 Mg PO DAILY Gabapentin 800 Mg Tab 800 Mg PO BID Omeprazole 20 Mg Tab 20 Mg PO BID Ropinirole 2 Mg Tab 2 Mg PO TID Tizanidine (Tizanidine HCl) 4 Mg Cap 4 Mg PO QID PRN Metformin (Metformin HCl) 500 Mg Tab 500 Mg PO BIDPC With meals Novolog Inj (Insulin Aspart) 1,000 Unit/10 Ml Vial 25 Units SQ TID Sliding Scale as directed. Levemir Inj (Insulin Detemir) 1,000 unit/ 10 ML Vial 60 Units SQ BID Do not mix with any other Insulin. Percocet (Oxycodone-Acetaminophen) 10-325 mg Tab 1 Tab PO Q4H PRN Xanax (Alprazolam) 1 Mg Tab 1 Mg PO Q6H PRN Allopurinol 300 Mg Tab 300 Mg PO HS Lipitor (Atorvastatin Calcium) 20 Mg Tab 20 Mg PO HS Cymbalta DR (Duloxetine HCl) 60 Mg Capdr 60 Mg PO HS Spironolactone 50 Mg Tab 50 Mg PO DAILY Potassium Chloride ER (Potassium Chloride) 20 Meq Tab 20 Meq PO DAILY PRN Januvia (Sitagliptin Phosphate) 50 Mg Tab 50 Mg PO DAILY Review of Systems Except as stated in HPI: all other systems reviewed are Neg General / Constitutional: No: Fever Eyes: No: Visual changes HENT: Positive: Congestion (chronic), No: Headaches Cardiovascular: Positive: Dyspnea on exertion, No: Chest Pain or Discomfort Respiratory: Positive: Shortness of Breath Gastrointestinal: No: Abdominal Pain Genitourinary: No: Dysuria Musculoskeletal: No: Pain Skin: No Rash Neurologic: Positive: Weakness (fatigue), Slurred Speech, Paresthesia, Sensory Disturbance, No: Focal Abnormalities, Change in Mentation Psychiatric: No: Depression Endocrine: No: Polydipsia Hematologic/Lymphatic: No: Easy Bruising Physical Exam Narrative General: The patient is a well-developed well-nourished female in no acute distress. Head and Neck exam: Head is normocephalic atraumatic. Eyes: EOMI, pupils are equal round and reactive to light. Nose: Midline septum with pink mucous membranes Mouth: Dentition unremarkable. Moist mucus membranes. Posterior oropharynx is not erythematous. No tonsillar hypertrophy. Uvula midline. Airway patent. Neck: No palpable lymphadenopathy. No nuchal rigidity. No thyromegaly. Cardiovascular: Regular rate and rhythm without murmurs, gallops, or rubs. No pulse deficit to the extremities. Lungs: Clear to auscultation bilaterally. No wheezes, rhonchi, or rales. Abdomen: Soft, without tenderness to palpation in all 4 quadrants of the abdomen. No guarding, rebound, or rigidity. Normal bowel sounds are audible. No tenderness on palpation of McBurney's point. Negative [place] sign. Extremities: No clubbing, cyanosis, or edema. 2+ pulses in all 4 extremities. Back: No spinous process tenderness to palpation. No costovertebral angle tenderness to palpation. Neurologic Exam: Cranial nerves 2-12 were intact on exam. Strength is 5/5 in all 4 extremities. Intermittent slight slurring of the speech. She is alert and oriented 4. She is able to name. She is able to name various objects around the room. The patient reports having tingling sensations with touching all of her extremities. She has sensation in all of her extremities, however she reports paresthesias, hypersensitivity with touching. Skin Exam: No rash noted. Intact skin that is warm and dry. Data Data Last Documented VS Vital Signs Date Time Temp Pulse Resp B/P Pulse Ox O2 Delivery O2 Flow Rate FiO2 01/26/17 01:41 94 Nasal Cannula 2 01/26/17 01:15 98.3 71 18 115/56 Orders Electrocardiogram (01/26/17 01:36) Complete Blood Count With Diff (01/26/17 01:36) Comprehensive Metabolic Panel (01/26/17 01:36) Creatine Kinase (Cpk) (01/26/17 01:36) Ckmb (Isoenzyme) Profile (01/26/17 01:36) Troponin I (01/26/17 01:36) B-Type Natriuretic Peptide (01/26/17 01:36) Prothrombin Time / Inr (Pt) (01/26/17 01:36) Act Partial Throm Time (Ptt) (01/26/17 01:36) Lipase (01/26/17 01:36) Urinalysis - C+S If Indicated (01/26/17 01:36) Magnesium (Mg) (01/26/17 01:36) Ammonia (01/26/17 01:36) Thyroid Stimulating Hormone (01/26/17 01:36) Chest, Single Ap (01/26/17 01:36) Ct Brain W/O Iv Contrast(Rout) (01/26/17 01:36) Iv Access Insert/Monitor (01/26/17 01:36) Ecg Monitoring (01/26/17 01:36) Oximetry (01/26/17 01:36) Drug Screen, Random Urine (01/26/17 01:36) Alcohol (Ethanol) (01/26/17 01:36) Sodium Chlorid 0.9% 500 Ml Inj (Ns 500 M (01/26/17 03:30) Labs Laboratory Tests Test 01/26/17 01/26/17 01:45 04:00 White Blood Count 8.3 TH/MM3 Red Blood Count 3.19 MIL/MM3 Hemoglobin 10.3 GM/DL Hematocrit 30.3 % Mean Corpuscular Volume 94.9 FL Mean Corpuscular Hemoglobin 32.4 PG Mean Corpuscular Hemoglobin 34.1 % Concent Red Cell Distribution Width 16.1 % Platelet Count 389 TH/MM3 Mean Platelet Volume 8.6 FL Neutrophils (%) (Auto) 60.6 % Lymphocytes (%) (Auto) 29.1 % Monocytes (%) (Auto) 6.4 % Eosinophils (%) (Auto) 3.0 % Basophils (%) (Auto) 0.9 % Neutrophils # (Auto) 5.0 TH/MM3 Lymphocytes # (Auto) 2.4 TH/MM3 Monocytes # (Auto) 0.5 TH/MM3 Eosinophils # (Auto) 0.2 TH/MM3 Basophils # (Auto) 0.1 TH/MM3 CBC Comment DIFF FINAL Differential Comment Prothrombin Time 10.4 SEC Prothromb Time International 0.9 RATIO Ratio Activated Partial 25.9 SEC Thromboplast Time Sodium Level 138 MEQ/L Potassium Level 4.1 MEQ/L Chloride Level 100 MEQ/L Carbon Dioxide Level 27.1 MEQ/L Anion Gap 11 MEQ/L Blood Urea Nitrogen 37 MG/DL Creatinine 2.21 MG/DL Estimat Glomerular Filtration 22 ML/MIN Rate Random Glucose 176 MG/DL Calcium Level 9.4 MG/DL Magnesium Level 2.0 MG/DL Total Bilirubin 0.3 MG/DL Aspartate Amino Transf 32 U/L (AST/SGOT) Alanine Aminotransferase 44 U/L (ALT/SGPT) Alkaline Phosphatase 91 U/L Ammonia 51 MCMOL/L Total Creatine Kinase 79 U/L Troponin I LESS THAN 0.02 NG/ML B-Type Natriuretic Peptide 108 PG/ML Total Protein 7.9 GM/DL Albumin 3.8 GM/DL Lipase 111 U/L Thyroid Stimulating Hormone 4.250 uIU/ML 3rd Gen Ethyl Alcohol Level LESS THAN 3 MG/DL Urine Color YELLOW Urine Turbidity CLEAR Urine pH 5.5 Urine Specific [place] 1.013 Urine Protein TRACE mg/dL Urine Glucose (UA) NEG mg/dL Urine Ketones NEG mg/dL Urine Occult Blood NEG Urine Nitrite NEG Urine Bilirubin NEG Urine Urobilinogen LESS THAN 2.0 MG/DL Urine Leukocyte Esterase NEG Urine RBC LESS THAN 1 /hpf Urine WBC 1 /hpf Urine Squamous Epithelial 1 /hpf Cells Urine Mucus FEW /lpf Microscopic Urinalysis Comment CULT NOT INDICATED MDM Medical Decision Making Medical Screen Exam Complete: Yes Emergency Medical Condition: Yes Medical Record Reviewed: Yes Interpretation(s) Last Impressions Head CT 01/26/17135 Signed Impressions: Service Date/Time: Thursday, January 26, 2017 01:56 - CONCLUSION: Normal examination. Shen Carrillo MD Chest X-Ray 01/26/17135 Signed Impressions: Service Date/Time: Thursday, January 26, 2017 01:49 - CONCLUSION: Clear lungs. Shen Carrillo MD Differential Diagnosis Metabolic encephalopathy, versus hepatic encephalopathy, versus infectious process such as a urinary tract infection, versus medication side effect, versus oversedation with polypharmacy Narrative Course During the course of the patients emergency department visit, the patients history, examination, and differential diagnosis were reviewed with the patient. The patient had IV access obtained and blood work sent for analysis. The patient had an EKG done on arrival that shows a sinus arrhythmia with a sinus rhythm, heart rate of 70, no acute ST segment elevation or depression, T waves inverted in V1. The patients laboratory studies were reviewed and remarkable for a white count of 8.3, hemoglobin 10.3, platelets 389 with 60.6 neutrophils. The patient's hemoglobin is at her baseline, CMP is remarkable for a BUN of 37, creatinine 2.21 which is increased compared to previously at 21 and 1.37 respectively. Glucose 176, CPK 79, troponin I less than 0.02, lipase 111, TSH 4.25, BNP 108, ammonia level LI. As the patient's liver enzymes are within normal limits and the patient has no prior history of liver disease I suspect that the patient's ammonia level may be either related to narcotic use which can elevate the ammonia level or her renal insufficiency. PT is 10.4, PTT 25.9, alcohol level less than 3. Urinalysis is unremarkable. Radiology studies were reviewed and remarkable for a chest x-ray that shows no acute cardiopulmonary disease, CT scan of the brain shows no acute abnormality. I had a lengthy discussion with the patient the patient's family regarding these recurrent symptoms. She does have a neurologist to follow-up with regarding this. She will be given a copy of her laboratory results including the elevated ammonia level. We did discuss the fact that I am concerned that the patient's symptoms are related to sedative medication use. She will discuss this further with her neurologist. The patient did recently undergo an MRI of the brain which showed no acute abnormality in October 2016. These imaging findings were reviewed by me. The patient is resting comfortably and feels better, is alert and in no distress. The patients results and examination findings were discussed with the patient. The repeat examination is unremarkable and benign. The history, exam, diagnostic testing, and current condition do not suggest any significant pathology to warrant further testing, continued ED treatment, admission, or surgical evaluation at this point. The vital signs have been stable. The patient does not have uncontrollable pain, intractable vomiting, or other significant symptoms. The patient's condition is stable and appropriate for discharge. The patient will pursue further outpatient evaluation with a primary care physician or other designated or consulting physician as indicated in the discharge instructions. The patient expressed understanding and was agreeable with this plan. Diagnosis Primary Impression: Generalized weakness Additional Impressions: Paresthesias Fatigue Qualified Code: R53.83 - Fatigue, unspecified type Referrals: Neurologist Additional Instructions: The patient is instructed to follow-up with her neurologist regarding this emergency department visit. She will be given a copy of her laboratory results including the elevated ammonia level. We did discuss the fact that I am concerned that the patient's symptoms are related to sedative medication use. She will discuss this further with her neurologist. The patient did recently undergo an MRI of the brain which showed no acute abnormality in October 2016. These imaging findings were reviewed by me. Disposition: 01 DISCHARGE HOME Condition: Stable Ann oHng MD Jan 26, 2017 01:39
[2017-01-26 01:41] VITALS: O2SAT 94
--- NOTE | 2017-01-26 01:57 | RADRPT ---
EXAM DATE/TIME: 01/26/2017 01:49 [facility] COMPARISON: No previous studies available for comparison. INDICATIONS : Chest pain. MEDICAL HISTORY : Hypertension. Chronic obstructive pulmonary disease. Myocardial infarction. Diabetes and endometrial cancer. SURGICAL HISTORY : Tubal ligation. Hysterectomy. Tonsillectomy. CABG. ENCOUNTER: Initial ACUITY: 1 day PAIN SCORE: 6/10 LOCATION: Bilateral chest FINDINGS: There is cardiomegaly and sternotomy wires. The lungs are clear. CONCLUSION: Clear lungs. Shen Carrillo MD on January 26, 2017 at 1:55 Board Certified Radiologist. This report was verified electronically.
--- NOTE | 2017-01-26 02:06 | RADRPT ---
EXAM DATE/TIME: 01/26/2017 01:56 [facility] COMPARISON: No previous studies available for comparison. INDICATIONS : Altered mental status. RADIATION DOSE: 45.73 CTDIvol (mGy) MEDICAL HISTORY : Cardiovascular disease. Chronic obstructive pulmonary disease. Myocardial infarction.Hypertension. Di abetes. SURGICAL HISTORY : CABG Tubal ligation.Hysterectomy.Appendectomy. ENCOUNTER: Initial ACUITY: 1 day PAIN SCALE: 0/10 LOCATION: cranial TECHNIQUE: Multiple contiguous axial images were obtained of the head. Using automated exposure control and adj ustment of the mA and/or kV according to patient size, radiation dose was kept as low as reasonably a chievable to obtain optimal diagnostic quality images. DICOM format image data is available electro nically for review and comparison. FINDINGS: CEREBRUM: The ventricles are normal for age. No evidence of midline shift, mass lesion, hemorrhage or acute in farction. No extra-axial fluid collections are seen. POSTERIOR FOSSA: The cerebellum and brainstem are intact. The 4th ventricle is midline. The cerebellopontine angle i s unremarkable. EXTRACRANIAL: The visualized portion of the orbits is intact. SKULL: The calvaria is intact. No evidence of skull fracture. CONCLUSION: Normal examination. Shen Carrillo MD on January 26, 2017 at 2:04 Board Certified Radiologist. This report was verified electronically.
[2017-01-26 02:11] LABS: BASOPHIL # 0.1 TH/MM3 (0-0.2); BASOPHIL % 0.9 % (0.0-2.0); EOSINOPHIL # 0.2 TH/MM3 (0-0.4); HEMATOCRIT 30.3 % (35.0-46.0); HEMO FLAGS DIFF FINAL; LYMPH % 29.1 % (9.0-44.0); LYMPHOCYTE # 2.4 TH/MM3 (1.0-4.8); MEAN CELL VOLUME 94.9 FL (80.0-100.0); MEAN CORPUSCULAR HEMOGLOBIN 32.4 PG (27.0-34.0); MEAN CORPUSCULAR HGB CONC 34.1 % (32.0-36.0); MONO % 6.4 % (0.0-8.0); NEUT % 60.6 % (16.0-70.0); PLATELET COUNT 389 TH/MM3 (150-450); RED BLOOD COUNT 3.19 MIL/MM3 (4.00-5.30); RED CELL DISTRIBUTION WIDTH 16.1 % (11.6-17.2); WHITE BLOOD COUNT 8.3 TH/MM3 (4.0-11.0)
[2017-01-26 02:27] LABS: APTT (PATIENT) 25.9 SEC (24.3-30.1); INTERNATIONAL NORMALIZED RATIO 0.9 RATIO; PROTHROMBIN TIME - PATIENT 10.4 SEC (9.8-11.6)
[2017-01-26 02:39] LABS: ANION GAP 11 MEQ/L (5-15); AST (GOT) 32 U/L (15-37); BICARBONATE 27.1 MEQ/L (21.0-32.0); BLOOD UREA NITROGEN 37 MG/DL (7-18); CHLORIDE 100 MEQ/L (98-107); GLOMERULAR FILTRATION RATE 22 ML/MIN (>89); POTASSIUM 4.1 MEQ/L (3.5-5.1); SODIUM (NA) 138 MEQ/L (136-145)
[2017-01-26 02:49] LABS: ALKALINE PHOSPHATASE 91 U/L (45-117); ALT (GPT) 44 U/L (10-53); TOTAL BILIRUBIN ADULT 0.3 MG/DL (0.2-1.0)
[2017-01-26 03:00] LABS: CREATINE KINASE 79 U/L (26-192)
[2017-01-26] MEDS ORDERED: SODIUM CHLORID 0.9% 500 ML INJ 500 ML IV ONE (03:30)
[2017-01-26 04:27] LABS: BLOOD, URINE NEG (NEG); COMMENT (UR) CULT NOT INDICATED; CULTURE IF INDICATED CULT NOT INDICATED; GLUCOSE,URINE NEG (NEG); KETONE, URINE NEG (NEG); MUCUS URINE FEW /lpf (OCC); NITRITE,URINE NEG (NEG); PH, URINE 5.5 (5.0-8.5); SQUAMOUS EPITHELIAL CELL URINE 1 /hpf (0-5); URINE COLOR YELLOW (YELLW/STRAW)
[2017-01-26 04:28] LABS: AMPHETAMINE, URINE NEG (NEG); BARBITURATES, URINE NEG (NEG); COCAINE, URINE NEG (NEG)
--- NOTE | 2017-01-26 15:33 | EKG ---
Date Performed: 01/26/2017 Time Performed: 01:13:02 PTAGE: 61 years EKG: Sinus rhythm WITH SINUS ARRHYTHMIA NORMAL ECG PREVIOUS TRACING : 10/07/2016 20.49 DOCTOR: Rick Odell Interpretating Date/Time 01/26/2017 15:32:34
== END 2017-01-26 05:02 | disposition home or self-care (01) ==
LOC: NEPE 01:02
DX: R53.1 Weakness (principal); R20.9 Unspecified disturbances of skin sensation; R53.83 Other fatigue; I49.8 Other specified cardiac arrhythmias; R06.00 Dyspnea, unspecified; R06.02 Shortness of breath; I11.0 Hypertensive heart disease with heart failure; I50.9 Heart failure, unspecified; Z79.899 Other long term (current) drug therapy
CPT/HCPCS: 70450; 71010; 80053; 80307; 81001; 82140; 82550; 83690; 83735; 83880; 84443; 84484; 85025; 85610; 85730; 93005; 96360; 99285; J7040

== ENCOUNTER 2017-08-13 08:13 | Day surgery (SDC) | payer OTHER ==
[2017-08-13] VITALS (8 sets, daily range): BP systolic 111–172; BP diastolic 60–72; PULSE 67–77; RESP 18; TEMP 97.3–98.9; O2SAT 92–97
[~2017-08-13] VITALS: Ht 162.6 cm; Wt 110.0 kg
[~2017-08-13 08:13] MED LIST changes: -ACYC800T PO; -ASPI81TA5 PO; +BETH25TA2 PO; +CALC0.25 PO; -DILT-60 PO; +ECASA81 PO; +FENO160T PO; +FERR325T18 PO; -FURO1TAB61 PO; +FURO40TA PO; -OMEP20TA PO; +OMEP20TA93 PO; -PRED20 PO
[2017-08-13] MEDS ORDERED: PANC3600 PO (08:49)
[2017-08-13] MEDS ORDERED: CETI10CA3 PO (08:49)
[2017-08-13] MEDS ORDERED: VITA100064 PO (08:49)
[2017-08-13] MEDS ORDERED: SODIUM CHLOR 0.9% 1000 ML IV SCH (09:00)
[2017-08-13] MEDS ORDERED: PLAV75TA29 PO (09:10)
[2017-08-13] MEDS ORDERED: LIDOCAINE HCL 1% 20 ML VIAL ONE (09:14)
[2017-08-13] MEDS ORDERED: fentaNYL CITRATE 250 MCG/5 ML AMP ONE (09:42)
[2017-08-13] MEDS ORDERED: MIDAZOLAM HCL 2 MG/2 ML VIAL ONE (09:42)
--- NOTE | 2017-08-13 10:08 | PD.RAD ---
Post Procedure Progress Note Pre Procedure Diagnosis: (1) Elevated LFTs Post Procedure Diagnosis: (1) Elevated LFTs Procedure Date: Aug 13, 2017 Supervising Radiologist: Chance Martinez Estimated blood loss: none Anesthesia: Local, Conscious Sedation Plan of Activity Patient to Unit: ROPU Patient Condition: Good Additional Comments: Successful Ct guided liver biopsy 18 ga core sample obtained. Full dictated report to follow. See PACS Report for procedural detail/treatment Chance Martinez MD Aug 13, 2017 10:08
[2017-08-13] MEDS ORDERED: PILL SPLITTER OTHER PRN (10:15)
[2017-08-13] MEDS ORDERED: HYDROmorphone HCL 2 MG TAB PO PRN (11:00)
--- NOTE | 2017-08-13 14:16 | RADRPT ---
EXAM DATE/TIME: 08/13/2017 09:50 [facility] COMPARISON: CT BRAIN W/O CONTRAST, January 26, 2017, 1:56. INDICATIONS : Abnormal liver function. SEDATION TIME: 30 minutes BIOPSY SITE: liver MEDICATION(S): 1.) 2 mg midazolam (Versed) IV 2.) 100 mcg fentanyl (Sublimaze) IV DEVICE(S): 1.) 18 gauge Temno core biopsy needle 9cm MEDICAL HISTORY : Hypertension. Endometrial cancer, chronic kidney disease. SURGICAL HISTORY : None. ENCOUNTER: Initial ACUITY: 1 day PAIN SCORE: 0/10 LOCATION: Right lateral A total of one core specimen(s) were obtained and sent to the laboratory for pathologic evaluation. PROCEDURE: 1. CT guided liver biopsy. 2. Conscious sedation with continuous EKG and oximetry monitoring. Prior to the procedure informed consent was obtained. Any appropriate prior imaging studies were rev iewed. Using automated exposure control and adjustment of the mA and/or kV according to patient size, radiat ion dose was kept as low as reasonably achievable to obtain optimal diagnostic quality images. DICOM format image data is available electronically for review and comparison. The site was prepped in a sterile fashion. Full sterile technique was used, including cap, mask, janina rile gloves and gown and a large sterile sheet. Hand hygiene and 2% chlorhexidine and/or betadine/al cohol prep was utilized per protocol for cutaneous antisepsis. The skin and subcutaneous tissues wer e infiltrated with local anesthetic solution. With CT guidance the previously identified target was localized. Biopsy was performed using the presc ribed needle as above. Adequate hemostasis was obtained with compression at the puncture site. Follow-up CT scan reveals no hemorrhage. The patient tolerated the procedure well and there were no complications. The patient was returned to the Radiology Outpatient Unit in stable condition. CONCLUSION: Uncomplicated CT guided liver biopsy. Chance Martinez MD on August 13, 2017 at 14:15 Board Certified Radiologist. This report was verified electronically.
== END 2017-08-13 14:21 | disposition home or self-care (01) ==
LOC: HRAD 08:13 → HRIP 08:19 → HRAD 14:21
PROVIDERS: ATTEND Physician Assistant Medical
DX: K75.81 Nonalcoholic steatohepatitis (NASH) (principal); I13.0 Hypertensive heart and chronic kidney disease with heart failure and stage 1 through stage 4 chronic kidney disease, or unspecified chronic kidney disease; E11.22 Type 2 diabetes mellitus with diabetic chronic kidney disease; N18.9 Chronic kidney disease, unspecified; I50.9 Heart failure, unspecified; K21.9 Gastro-esophageal reflux disease without esophagitis; G47.30 Sleep apnea, unspecified; K22.70 Barrett's esophagus without dysplasia; Z85.42 Personal history of malignant neoplasm of other parts of uterus
CPT/HCPCS: 47000; 77012; 88307; 88313; J2250; J3010; J7030

== ENCOUNTER 2017-09-11 04:20 | Inpatient (IN) | payer OTHER, MEDICARE ==
[~2017-09-11] VITALS: Ht 162.6 cm; Wt 113.5 kg
[2017-09-11] VITALS (15 sets, daily range): BP systolic 107–196; BP diastolic 73–100; PULSE 60–83; RESP 13–20; TEMP 98.4–98.7; O2SAT 95–99
[~2017-09-11 04:20] MED LIST changes: +CETI10CA3 PO; -FENO160T PO; +PANC3600 PO; +PLAV75TA29 PO; -SITA50 PO; +VITA100064 PO
[2017-09-11] MEDS ORDERED: LIDOCAINE VISCOUS 2% SOLN 15 ML UDC PO ONE (07:30)
[2017-09-11] MEDS ORDERED: ALUMINUM/MAGNESIUM/SIMETH 30 ML CUP PO ONE (07:30)
[2017-09-11] MEDS ORDERED: SODIUM CHLORIDE 0.9% FLUSH 10 ML FLUSH IVF PRN (07:30)
--- NOTE | 2017-09-11 07:35 | PD ---
HPI Chief Complaint: Chest Pain Time Seen by Provider: 07:28 Travel History International Travel<30 days: No Contact w/Intl Traveler<30days: No Traveled to known affect area: No History of Present Illness HPI Chest pain and elevated blood sugar. Reports onset of chest pain around midnight persistent since then. Radiating to the right neck and right shoulder. Positive history of coronary artery disease. Positive family history of cardiac disease. Past medical history for hypertension hyperlipidemia and diabetes. Reports diaphoresis and shortness of breath. Non- smoker. PFSH Past Medical History Hx Anticoagulant Therapy: Yes Cardiac Catheterization: Yes (6 STENTS) Cardiovascular Problems: Yes High Cholesterol: Yes COPD: Yes Diabetes: Yes Diminished Hearing: No Gout: Yes Hypertension: Yes Musculoskeletal: No Neurologic: No Respiratory: Yes (COPD) Immunizations Current: Yes Sleep Apnea: Yes (bipap) Menopausal: Yes : 3 Para: 3 Tubal Ligation: Yes Past Surgical History Appendectomy: Yes Cardiac Surgery: Yes (stents x7 and left leg angio) Coronary Artery Bypass Graft: Yes (CABGX1) Hysterectomy: Yes Tonsillectomy: Yes Other Surgery: Yes Social History Alcohol Use: Yes (rarely) Tobacco Use: No (quit 15 years ago.) Substance Use: No Allergies-Medications (Allergen,Severity, Reaction): Coded Allergies: losartan (Unverified Allergy, Severe, 08/13/17) olmesartan (Unverified Allergy, Severe, 08/13/17) Reported Meds & Prescriptions Reported Meds & Active Scripts Active Reported Plavix (Clopidogrel Bisulfate) 75 Mg Tab 75 Mg PO DAILY Vitamin D3 (Cholecalciferol) 1,000 Unit Tab Unknown Dose PO DAILY Zyrtec (Cetirizine HCl) 10 Mg Capsule 1 Tab PO DAILY Creon (Pancrelipase) 36,000-114,000-180,000 Units Cap 1 Cap PO TIDPC Ferrous Sulfate 325 Mg (65 Mg Iron) Tablet 325 Mg PO BID Bethanechol 25 Mg Tab 12.5 Mg PO QID Metoprolol Tartrate 50 Mg Tab 50 Mg PO BID Furosemide 40 Mg Tab 40 Mg PO DAILY Magnesium Unknown Strength Tab Unknown Dose PO DAILY B-12 (Cyanocobalamin) Unknown Strength Tab Unknown Dose PO DAILY Aspirin DR (Aspirin) 81 Mg Tabdr 81 Mg PO DAILY Gabapentin 800 Mg Tab 800 Mg PO DAILY Omeprazole 20 Mg Tab 20 Mg PO BID Ropinirole 2 Mg Tab 2 Mg PO TID Tizanidine (Tizanidine HCl) 4 Mg Cap 4 Mg PO QID PRN Metformin (Metformin HCl) 500 Mg Tab 1,000 Mg PO BIDPC With meals Novolog Inj (Insulin Aspart) 1,000 Unit/10 Ml Vial 25 Units SQ TID Sliding Scale as directed. Levemir Inj (Insulin Detemir) 1,000 unit/ 10 ML Vial 60 Units SQ BID Do not mix with any other Insulin. Percocet (Oxycodone-Acetaminophen) 10-325 mg Tab 1 Tab PO Q4H PRN Xanax (Alprazolam) 1 Mg Tab 1 Mg PO Q6H PRN Allopurinol 300 Mg Tab 300 Mg PO HS Lipitor (Atorvastatin Calcium) 20 Mg Tab 40 Mg PO HS Cymbalta DR (Duloxetine HCl) 60 Mg Capdr 60 Mg PO HS Spironolactone 50 Mg Tab 50 Mg PO DAILY Potassium Chloride ER (Potassium Chloride) 20 Meq Tab 20 Meq PO DAILY PRN Review of Systems Cardiovascular: Positive: Chest Pain or Discomfort Respiratory: Positive: Shortness of Breath Physical Exam Narrative GENERAL: Well-nourished, well-developed patient. SKIN: Focused skin assessment warm/dry. HEAD: Normocephalic. EYES: No scleral icterus. No injection or drainage. NECK: Supple, trachea midline. No JVD or lymphadenopathy. CARDIOVASCULAR: Regular rate and rhythm without murmurs, gallops, or rubs. RESPIRATORY: Breath sounds equal bilaterally. No accessory muscle use. GASTROINTESTINAL: Abdomen soft, non-tender, nondistended. MUSCULOSKELETAL: No cyanosis, or edema. BACK: Nontender without obvious deformity. No CVA tenderness. Data Data Last Documented VS Vital Signs Date Time Temp Pulse Resp B/P (MAP) Pulse Ox O2 Delivery O2 Flow Rate FiO2 09/11/17 10:17 80 20 196/100 (132) 95 Room Air 09/11/17 04:25 98.6 Orders Orders Electrocardiogram (09/11/17 07:28) Ckmb (Isoenzyme) Profile (09/11/17 07:28) Complete Blood Count With Diff (09/11/17 07:28) Comprehensive Metabolic Panel (09/11/17 07:28) D-Dimer (09/11/17 07:28) Magnesium (Mg) (09/11/17 07:28) Prothrombin Time / Inr (Pt) (09/11/17 07:28) Act Partial Throm Time (Ptt) (09/11/17 07:28) Troponin I (09/11/17 07:28) Chest, Single Ap (09/11/17 07:28) Ecg Monitoring (09/11/17 07:28) Bilateral Bp Monitoring (09/11/17 07:28) Iv Access Insert/Monitor (09/11/17 07:28) Oximetry (09/11/17 07:28) Oxygen Administration (09/11/17 07:28) Sodium Chloride 0.9% Flush (Ns Flush) (09/11/17 07:30) Al-Mag Hy-Si 40-40-4 Mg/Ml Liq (Mag-Al P (09/11/17 07:30) Lidocaine 2% Viscous (Xylocaine 2% Visco (09/11/17 07:30) Clonidine (Catapres) (09/11/17 07:45) CKMB (09/11/17 08:00) CKMB% (09/11/17 08:00) Electrocardiogram (09/11/17 08:57) Aspirin (Aspirin) (09/11/17 09:00) Nitroglycerin 2% Oint (Nitroglycerin 2% (09/11/17 09:00) Methylprednisolone So Succ Inj (Solumedr (09/11/17 10:00) Albuterol Neb (Albuterol Neb) (09/11/17 10:00) Heparin-D5w 25,000 U/250 Ml (Heparin-D5w (09/11/17 11:00) Act Partial Throm Time (Ptt) (09/11/17 10:52) Cbc No Diff, Includes Plts (09/11/17 10:52) Cbc No Diff, Includes Plts (09/14/17 06:00) Act Partial Throm Time (Ptt) (09/11/17 17:52) Occult Blood (Hemoccult) Stool (09/11/17 10:52) Admit Order (Ed Use Only) (09/11/17 ) Lna / Telemetry LUBNA.Q8H (09/11/17 11:11) Vital Signs (Adult) Q4H (09/11/17 11:11) Activity Bed Rest (09/11/17 11:11) Notify Dr: Other (09/11/17 11:11) Consult Cardiology (09/11/17 ) Labs Laboratory Tests Test 09/11/17 07:30 09/11/17 08:00 Prothrombin Time 10.2 SEC Prothromb Time International Ratio 1.0 RATIO Activated Partial Thromboplast Time 22.3 SEC D-Dimer Quantitative (PE/DVT) 0.76 MG/L FEU White Blood Count 9.6 TH/MM3 Red Blood Count 3.63 MIL/MM3 Hemoglobin 11.5 GM/DL Hematocrit 34.2 % Mean Corpuscular Volume 94.4 FL Mean Corpuscular Hemoglobin 31.7 PG Mean Corpuscular Hemoglobin Concent 33.6 % Red Cell Distribution Width 14.2 % Platelet Count 383 TH/MM3 Mean Platelet Volume 8.3 FL Neutrophils (%) (Auto) 64.2 % Lymphocytes (%) (Auto) 27.3 % Monocytes (%) (Auto) 4.7 % Eosinophils (%) (Auto) 2.8 % Basophils (%) (Auto) 1.0 % Neutrophils # (Auto) 6.2 TH/MM3 Lymphocytes # (Auto) 2.6 TH/MM3 Monocytes # (Auto) 0.4 TH/MM3 Eosinophils # (Auto) 0.3 TH/MM3 Basophils # (Auto) 0.1 TH/MM3 CBC Comment DIFF FINAL Differential Comment Blood Urea Nitrogen 32 MG/DL Creatinine 1.60 MG/DL Random Glucose 259 MG/DL Total Protein 8.3 GM/DL Albumin 3.7 GM/DL Calcium Level 9.4 MG/DL Magnesium Level 2.0 MG/DL Alkaline Phosphatase 129 U/L Aspartate Amino Transf (AST/SGOT) 54 U/L Alanine Aminotransferase (ALT/SGPT) 31 U/L Total Bilirubin 0.3 MG/DL Sodium Level 136 MEQ/L Potassium Level 4.4 MEQ/L Chloride Level 103 MEQ/L Carbon Dioxide Level 23.1 MEQ/L Anion Gap 10 MEQ/L Estimat Glomerular Filtration Rate 33 ML/MIN Total Creatine Kinase 322 U/L Creatine Kinase MB 13.3 NG/ML Creatine Kinase MB % 4.1 % Troponin I 3.38 NG/ML MDM Medical Decision Making Medical Screen Exam Complete: Yes Emergency Medical Condition: Yes Differential Diagnosis ACS, GERD, hyperglycemia, Narrative Course Assessment and plan discussed with patient at bedside. Elevated blood pressure noted, clonidine provided. Chest xray revealed bibasilar patchiness consistent with atelectasis and/or infiltrates. Minimal cardiomegaly. EKG reveals sinus rhythm rate of 77. Cardiac enzymes positive. Aspirin and heparin drip initiated. Physician Communication Physician Communication Spoke with Dr. Brooke who is in agreement will admit with cardiology consult. Dr Frazier aware Diagnosis Primary Impression: ACS (acute coronary syndrome) Chauncey Fisher MD Sep 11, 2017 07:34
[2017-09-11] MEDS ORDERED: cloNIDine HCL 0.1 MG TAB PO ONE ×2 (07:45→16:00)
--- NOTE | 2017-09-11 08:05 | RADRPT ---
EXAM DATE/TIME: 09/11/2017 07:32 [facility] COMPARISON: CHEST SINGLE AP, January 26, 2017, 1:49. INDICATIONS : Chest pain, short of breath MEDICAL HISTORY : Diabetes mellitus type II. SURGICAL HISTORY : CABG. ENCOUNTER: Initial ACUITY: 1 day PAIN SCORE: 6/10 LOCATION: Bilateral chest FINDINGS: Median sternotomy wires are noted status post cardiac surgery. The heart is enlarged. The pulmonary v ascular pattern is normal. The lungs are clear. CONCLUSION: Cardiomegaly. No focal infiltrate or pulmonary vascular congestion. Eric Krishnamurthy MD on September 11, 2017 at 8:00 Board Certified Radiologist. This report was verified electronically.
[2017-09-11 08:26] LABS: AUTOMATED NEUTROPHIL # 6.2 TH/MM3 (1.8-7.7); BASOPHIL # 0.1 TH/MM3 (0-0.2); EOSINOPHIL # 0.3 TH/MM3 (0-0.4); EOSINOPHIL % 2.8 % (0.0-4.0); HEMATOCRIT 34.2 % (35.0-46.0); HEMOGLOBIN 11.5 GM/DL (11.6-15.3); LYMPH % 27.3 % (9.0-44.0); LYMPHOCYTE # 2.6 TH/MM3 (1.0-4.8); MEAN CELL VOLUME 94.4 FL (80.0-100.0); MEAN CORPUSCULAR HEMOGLOBIN 31.7 PG (27.0-34.0); MEAN CORPUSCULAR HGB CONC 33.6 % (32.0-36.0); MEAN PLATELET VOLUME 8.3 FL (7.0-11.0); MONO % 4.7 % (0.0-8.0); MONOCYTE # 0.4 TH/MM3 (0-0.9); NEUT % 64.2 % (16.0-70.0); PLATELET COUNT 383 TH/MM3 (150-450); RED BLOOD COUNT 3.63 MIL/MM3 (4.00-5.30); RED CELL DISTRIBUTION WIDTH 14.2 % (11.6-17.2); WHITE BLOOD COUNT 9.6 TH/MM3 (4.0-11.0)
[2017-09-11 08:38] LABS: CHLORIDE 103 MEQ/L (98-107); SODIUM (NA) 136 MEQ/L (136-145)
[2017-09-11 08:41] LABS: CALCIUM 9.4 MG/DL (8.5-10.1)
[2017-09-11 08:42] LABS: ALBUMIN 3.7 GM/DL (3.4-5.0); BICARBONATE 23.1 MEQ/L (21.0-32.0); BLOOD UREA NITROGEN 32 MG/DL (7-18); GLUCOSE,RANDOM 259 MG/DL (74-106)
[2017-09-11 08:43] LABS: PROTHROMBIN TIME - PATIENT 10.2 SEC (9.8-11.6)
[2017-09-11 08:45] LABS: ALT (GPT) 31 U/L (10-53); AST (GOT) 54 U/L (15-37); GLOMERULAR FILTRATION RATE 33 ML/MIN (>89)
[2017-09-11 08:46] LABS: TOTAL BILIRUBIN ADULT 0.3 MG/DL (0.2-1.0); TOTAL PROTEIN 8.3 GM/DL (6.4-8.2)
[2017-09-11 08:48] LABS: ALKALINE PHOSPHATASE 129 U/L (45-117)
[2017-09-11 08:53] LABS: D-DIMER 0.76 MG/L FEU (0.00-0.50)
[2017-09-11 08:54] LABS: TROPONIN I 3.38 NG/ML (0.02-0.05)
[2017-09-11] MEDS ORDERED: ASPIRIN 325 MG TAB PO ONE (09:00)
[2017-09-11] MEDS ORDERED: NITROGLYCERIN 2% OINT 1 GM PACKET TOP ONE (09:00)
[2017-09-11] MEDS ORDERED: RESP: ALBUTEROL 2.5 MG/3 ML NEB (SCH) INH (10:00)
[2017-09-11] MEDS ORDERED: methylPREDNISolone SOD SUCC 125 MG/2 ML VIAL IV PUSH ONE (10:00)
[2017-09-11 11:57] LABS: HEMOGLOBIN 11.7 GM/DL (11.6-15.3); MEAN CELL VOLUME 94.3 FL (80.0-100.0); MEAN CORPUSCULAR HEMOGLOBIN 31.5 PG (27.0-34.0); MEAN CORPUSCULAR HGB CONC 33.4 % (32.0-36.0); MEAN PLATELET VOLUME 8.3 FL (7.0-11.0); PLATELET COUNT 336 TH/MM3 (150-450); RED BLOOD COUNT 3.71 MIL/MM3 (4.00-5.30); RED CELL DISTRIBUTION WIDTH 14.2 % (11.6-17.2); WHITE BLOOD COUNT 9.3 TH/MM3 (4.0-11.0)
[2017-09-11] MEDS ORDERED: MORPHINE SULFATE 2 MG/ML INJ IV PUSH ONE (12:45)
[2017-09-11] MEDS ORDERED: oxyCODONE/ACETAMINOPHEN 10 MG/325 MG TAB PO ONE (14:45)
[2017-09-11] MEDS: NITROGLYCERIN-D5W 50 MG/250 ML 250 ML IV PRN (17:06)
[2017-09-11] MEDS: HEPARIN-D5W 25,000 U/250 ML 250 ML IV PRN (17:47)
--- NOTE | 2017-09-11 18:10 | HHI.HP ---
HPI Service [facility] Hospitalists Primary Care Physician Non-Staff Admission Diagnosis ACS Diagnoses: Chief Complaint: chest pain Travel History International Travel<30 Days: No Contact w/Intl Traveler <30 Da: No Traveled to Known Affected Are: No History of Present Illness This is a 60-year-old female with past medical history of CAD status post CABG and stent placement who presents to [facility] complaining of chest pain described as heavy achy dull sensation on the substernal region radiating to the right side of her neck and the right arm. The patient states palpating the substernal region with exacerbate the pain, no alleviating factors were identified by the patient. The patient states that chest pain improved slightly with nitroglycerin and medications given in the emergency department. The patient was given nitroglycerin and aspirin in the [facility] emergency department and also started on IV heparin drip, then she was transferred to [facility]. The patient denies shortness of breath, complains of headache, denies abdominal pain, nausea, vomiting, diarrhea. The patient denies diaphoresis, palpitations. At the moment of this interview the patient still complaining of chest pain. Review of Systems As per HPI, other systems reviewed by me and negative. Past Family Social History Past Medical History 1. CAD status post [place] status post stents and bypass. 2. PAD status post angioplasty. 3. Hyperlipidemia. 4. COPD. 5. Diabetes mellitus type 2. 6. Hypertension. 7. CKD stage III. A. CHF. Past Surgical History 1. Tubal ligation. 2. Appendectomy. 3. Hysterectomy 4. Tonsillectomy 5. Stent placement. 6. CABG. Reported Medications Reported Meds & Active Scripts Active Reported Plavix (Clopidogrel Bisulfate) 75 Mg Tab 75 Mg PO DAILY Vitamin D3 (Cholecalciferol) 1,000 Unit Tab Unknown Dose PO DAILY Zyrtec (Cetirizine HCl) 10 Mg Capsule 1 Tab PO DAILY Creon (Pancrelipase) 36,000-114,000-180,000 Units Cap 1 Cap PO TIDPC Ferrous Sulfate 325 Mg (65 Mg Iron) Tablet 325 Mg PO BID Bethanechol 25 Mg Tab 12.5 Mg PO QID Metoprolol Tartrate 50 Mg Tab 50 Mg PO BID Furosemide 40 Mg Tab 40 Mg PO DAILY Magnesium Unknown Strength Tab Unknown Dose PO DAILY B-12 (Cyanocobalamin) Unknown Strength Tab Unknown Dose PO DAILY Aspirin DR (Aspirin) 81 Mg Tabdr 81 Mg PO DAILY Gabapentin 800 Mg Tab 800 Mg PO DAILY Omeprazole 20 Mg Tab 20 Mg PO BID Ropinirole 2 Mg Tab 2 Mg PO TID Tizanidine (Tizanidine HCl) 4 Mg Cap 4 Mg PO QID PRN Metformin (Metformin HCl) 500 Mg Tab 1,000 Mg PO BIDPC With meals Novolog Inj (Insulin Aspart) 1,000 Unit/10 Ml Vial 25 Units SQ TID Sliding Scale as directed. Levemir Inj (Insulin Detemir) 1,000 unit/ 10 ML Vial 60 Units SQ BID Do not mix with any other Insulin. Percocet (Oxycodone-Acetaminophen) 10-325 mg Tab 1 Tab PO Q4H PRN Xanax (Alprazolam) 1 Mg Tab 1 Mg PO Q6H PRN Allopurinol 300 Mg Tab 300 Mg PO HS Lipitor (Atorvastatin Calcium) 20 Mg Tab 40 Mg PO HS Cymbalta DR (Duloxetine HCl) 60 Mg Capdr 60 Mg PO HS Spironolactone 50 Mg Tab 50 Mg PO DAILY Potassium Chloride ER (Potassium Chloride) 20 Meq Tab 20 Meq PO DAILY PRN Allergies: Coded Allergies: losartan (Unverified Allergy, Severe, 08/13/17) olmesartan (Unverified Allergy, Severe, 08/13/17) Active Ordered Medications Current Medications Medications (Trade) Dose Ordered Sig/Tree Route Start Time Stop Time Status Last Admin (NS Flush) 2 ml UNSCH PRN IVF 09/11/17 07:30 Heparin Sodium/ Dextrose 250 ml @ 10 mls/hr TITRATE PRN IV 09/11/17 11:00 09/11/17 17:47 Nitroglycerin/ Dextrose 250 ml @ 1.5 mls/hr TITRATE PRN IV 09/11/17 16:45 09/11/17 17:06 Family History Patient father and mother from [place]. Social History Occasional alcohol use. The patient denies current smoking, however she is a former smoker and quit many years ago. Denies illicit drug use. The patient states she has 3 children which are grown up and live in [place]. Patient states she is . Physical Exam Vital Signs Vital Signs Date Time Temp Pulse Resp B/P (MAP) Pulse Ox O2 Delivery O2 Flow Rate FiO2 09/11/17 17:11 13 09/11/17 17:06 71 171/77 09/11/17 16:00 82 20 179/82 (114) 96 Room Air 09/11/17 16:00 09/11/17 13:56 73 20 107/77 (87) 97 Room Air 09/11/17 11:22 80 20 173/92 (119) 96 Room Air 09/11/17 10:17 80 20 196/100 (132) 95 Room Air 09/11/17 09:14 76 20 175/80 (111) 95 Room Air 09/11/17 08:57 95 Room Air 09/11/17 08:55 181/83 (115) 185/89 (121) 09/11/17 08:00 80 20 181/76 (111) 95 Room Air 09/11/17 04:25 98.6 83 20 175/83 (113) 98 Physical Exam GENERAL: This is a well-nourished, well-developed patient, in mild distress due to pain. SKIN: No rashes, ecchymoses or lesions. Cool and dry. HEAD: Atraumatic. Normocephalic. No temporal or scalp tenderness. EYES: Pupils equal round and reactive. Extraocular motions intact. No scleral icterus. No injection or drainage. ENT: Nose without bleeding, purulent drainage or septal hematoma. Throat without erythema, tonsillar hypertrophy or exudate. Uvula midline. Airway patent. NECK: Trachea midline. No JVD or lymphadenopathy. Supple, nontender, no meningeal signs. CARDIOVASCULAR: Regular rate and rhythm without murmurs, gallops, or rubs. RESPIRATORY: Clear to auscultation. Breath sounds equal bilaterally. No wheezes , rales, or rhonchi. GASTROINTESTINAL: Obese abdomen, soft, non-tender, nondistended. No hepato- splenomegaly, or palpable masses. No guarding. MUSCULOSKELETAL: Extremities without clubbing, cyanosis, or edema. No joint tenderness, effusion, or edema noted. No calf tenderness. Negative Homans sign bilaterally. Tenderness to palpation of substernal region. NEUROLOGICAL: Awake and alert. Cranial nerves II through XII intact. Motor and sensory grossly within normal limits. Five out of 5 muscle strength in all muscle groups. Normal speech. Laboratory Laboratory Tests Test 09/11/17 07:30 09/11/17 08:00 09/11/17 11:35 Prothrombin Time 10.2 Prothromb Time International Ratio 1.0 Activated Partial Thromboplast Time 22.3 23.6 D-Dimer Quantitative (PE/DVT) 0.76 White Blood Count 9.6 9.3 Red Blood Count 3.63 3.71 Hemoglobin 11.5 11.7 Hematocrit 34.2 35.0 Mean Corpuscular Volume 94.4 94.3 Mean Corpuscular Hemoglobin 31.7 31.5 Mean Corpuscular Hemoglobin Concent 33.6 33.4 Red Cell Distribution Width 14.2 14.2 Platelet Count 383 336 Mean Platelet Volume 8.3 8.3 Neutrophils (%) (Auto) 64.2 Lymphocytes (%) (Auto) 27.3 Monocytes (%) (Auto) 4.7 Eosinophils (%) (Auto) 2.8 Basophils (%) (Auto) 1.0 Neutrophils # (Auto) 6.2 Lymphocytes # (Auto) 2.6 Monocytes # (Auto) 0.4 Eosinophils # (Auto) 0.3 Basophils # (Auto) 0.1 CBC Comment DIFF FINAL Differential Comment Blood Urea Nitrogen 32 Creatinine 1.60 Random Glucose 259 Total Protein 8.3 Albumin 3.7 Calcium Level 9.4 Magnesium Level 2.0 Alkaline Phosphatase 129 Aspartate Amino Transf (AST/SGOT) 54 Alanine Aminotransferase (ALT/SGPT) 31 Total Bilirubin 0.3 Sodium Level 136 Potassium Level 4.4 Chloride Level 103 Carbon Dioxide Level 23.1 Anion Gap 10 Estimat Glomerular Filtration Rate 33 Total Creatine Kinase 322 Creatine Kinase MB 13.3 Creatine Kinase MB % 4.1 Troponin I 3.38 Result Diagram: 09/11/17 1135 09/11/17 0800 Imaging Chest x-ray reviewed by me shows cardiomegaly, no focal infiltrate or pulmonary vascular congestion. EKG showed sinus rhythm with sinus arrhythmia. No ST-T changes suggestive of active ischemia. Caprini VTE Risk Assessment Caprini VTE Risk Assessment: Mod/High Risk (score >= 2) Caprini Risk Assessment Model Point Value = 1 Point Value = 2 Point Value = 3 Point Value = 5 Age 41-60 Minor surgery BMI > 25 kg/m2 Swollen legs Varicose veins or History of unexplained or recurrent spontaneous Oral contraceptives or hormone replacement Sepsis (< 1 month) Serious lung disease, including pneumonia (< 1 month) Abnormal pulmonary function Acute myocardial infarction Congestive heart failure (< 1 month) History of inflammatory bowel disease Medical patient at bed rest Age 61-74 Arthroscopic surgery Major open surgery (> 45 min) Laparoscopic surgery (> 45 min) Malignancy Confined to bed (> 72 hours) Immobilizing plaster cast Central venous access Age >= 75 History of VTE Family history of VTE Factor V Leiden Prothrombin [id number] Lupus anticoagulant Anticardiolipin antibodies Elevated serum homocysteine Heparin-induced thrombocytopenia Other congenital or acquired thrombophilia Stroke (< 1 month) Elective arthroplasty Hip, pelvis, or leg fracture Acute spinal cord injury (< 1 month) Prophylaxis Regimen Total Risk Factor Score Risk Level Prophylaxis Regimen 0-1 Low Early ambulation 2 Moderate Order ONE of the following: *Sequential Compression Device (SCD) *Heparin 5000 units SQ BID 3-4 Higher Order ONE of the following medications: *Heparin 5000 units SQ TID *Enoxaparin/Lovenox 40 mg SQ daily (WT < 150 kg, CrCl > 30 mL/min) *Enoxaparin/Lovenox 30 mg SQ daily (WT < 150 kg, CrCl > 10-29 mL/min) *Enoxaparin/Lovenox 30 mg SQ BID (WT < 150 kg, CrCl > 30 mL/min) AND/OR *Sequential Compression Device (SCD) 5 or more Highest Order ONE of the following medications: *Heparin 5000 units SQ TID (Preferred with Epidurals) *Enoxaparin/Lovenox 40 mg SQ daily (WT < 150 kg, CrCl > 30 mL/min) *Enoxaparin/Lovenox 30 mg SQ daily (WT < 150 kg, CrCl > 10-29 mL/min) *Enoxaparin/Lovenox 30 mg SQ BID (WT < 150 kg, CrCl > 30 mL/min) AND *Sequential Compression Device (SCD) Assessment and Plan Problem List: (1) ACS (acute coronary syndrome) ICD Code: I24.9 - Acute ischemic heart disease, unspecified Status: Acute Plan: End STEMI EKG reviewed by me showed sinus rhythm at a ventricular rate of 77 bpm, no ST-T changes suggestive of active ischemia. Troponin elevated at 3.38. ED physician started IV heparin drip, continue. Trend cardiac enzymes Continue aspirin, beta-matthew, statin, Plavix Continue nitroglycerin drip. Cardiology consulted ER physician discussed the case with with Dr. Frazier. (2) TIMOTHY (acute kidney injury) ICD Code: N17.9 - Acute kidney failure, unspecified Plan: Patient has history of CKD stage III, however creatinine on admission is 1.60. Likely prerenal. Will place on gentle IV fluids, monitor BUN and creatinine, strict I's and O's, avoid nephrotoxins. (3) Transaminitis ICD Code: R74.0 - Nonspecific elevation of levels of transaminase and lactic acid dehydrogenase [LDH] Status: Acute Plan: Mild elevation of AST. Monitor LFTs. (4) Type 2 diabetes mellitus ICD Code: E11.9 - Type 2 diabetes mellitus without complications Status: Acute Plan: Blood sugars are severely elevated in the mid 200 range Hold metformin. Continue home insulin. The patient currently on basal bolus therapy with insulin Levemir and insulin NovoLog. Placed on SSI with insulin NovoLog. (5) COPD (chronic obstructive pulmonary disease) ICD Code: J44.9 - Chronic obstructive pulmonary disease, unspecified Plan: Patient is status post 1 dose of IV Solu-Medrol in the ED. (6) Uncontrolled hypertension ICD Code: I10 - Essential (primary) hypertension Plan: The patient has severely elevated blood pressure. Resume home antihypertensive medications. Labetalol as needed for systolic blood pressure more than 160. Assessment and Plan DVT prophylaxis: On heparin drip Code Status Full code Discussed Condition With Patient, RN,Ed physician Physician Certification 2 Midnight Certification Type: Admission for Inpatient Services Order for Inpatient Services The services are ordered in accordance with Medicare regulations or non- Medicare payer requirements, as applicable. In the case of services not specified as inpatient-only, they are appropriately provided as inpatient services in accordance with the 2-midnight benchmark. Estimated LOS (days): 3 days is the estimated time the patient will need to remain in the hospital, assuming treatment plan goals are met and no additional complications. Post-Hospital Plan: Not yet determined Problem Qualifiers (1) COPD (chronic obstructive pulmonary disease): Agustin Santos MD Sep 11, 2017 18:10
[2017-09-11] MEDS ORDERED: ONDANSETRON HCL 4 MG/2 ML VIAL IV PUSH PRN (18:45)
[2017-09-11] MEDS ORDERED: SODIUM CHLORIDE 0.9% FLUSH 10 ML FLUSH IV FLUSH PRN (18:45)
[2017-09-11] MEDS ORDERED: ACETAMINOPHEN 325 MG TAB PO PRN (18:45)
[2017-09-11] MEDS ORDERED: DOCUSATE SODIUM 100 MG CAP PO PRN (18:45)
[2017-09-11] MEDS ORDERED: ALPRAZolam 1 MG TAB PO PRN (18:45)
[2017-09-11] MEDS ORDERED: DEXTROSE 50% IN WATER 50 ML VIAL(D50) IV PUSH PRN (19:00)
[2017-09-11] MEDS ORDERED: GLUCAGON 1 MG/ML VIAL OTHER PRN (19:00)
[2017-09-11] MEDS: MORPHINE SULFATE 4 MG/ML INJ IV PUSH PRN ×2 (19:26→23:28)
--- NOTE | 2017-09-11 19:52 | MB ---
cc: Geo Simmons MD DATE: 09/10/2017 REASON FOR CONSULTATION: Non-STEMI. HISTORY OF PRESENT ILLNESS: The patient is a very pleasant 61-year-old woman who sees my partner, Dr. Menendez for history of coronary artery disease with multiple prior LAD stents, but apparently these became occluded and then she underwent a single-vessel bypass. Yesterday, she began having significant chest discomfort radiating to her neck and she presented to the [facility] emergency department and her first set of cardiac enzymes was elevated. She was given nitroglycerin, which significantly reduced, but not quite limited in her pain. She is now feeling quite a bit better with minor but not completely resolved chest pain. No shortness of breath, lightheadedness or dizziness. PAST MEDICAL HISTORY: 1. Coronary artery disease as above. 2. Obesity. 3. Hypertension. 4. Depression. 5. Anxiety. 6. Diabetes. HOME MEDICATIONS: Included : 1. Sertraline. 2. Bethanechol. 3. Tizanidine. 4. Iron. 5. Plavix 75 mg daily. 6. Lipitor 20 mg daily. 7. Metoprolol 50 mg b.i.d. 8. Aldactone 50 mg daily. 9. Aspirin 81 mg daily. 10. Percocet. 11. Gabapentin. 12. Cymbalta. 13. Xanax. 14. Metformin. ALLERGIES: LOSARTAN AND OLMESARTAN. PHYSICAL EXAMINATION: VITAL SIGNS: Afebrile, pulse 82, respiratory rate 20, blood pressure 129/82, saturating 96% on room air. GENERAL: Pleasant, obese woman, in no distress. NECK: No JVD. LUNGS: Clear to auscultation bilaterally. CARDIOVASCULAR: Regular rate and rhythm. No murmurs appreciated. ABDOMEN: Benign. EXTREMITIES: No edema. LABORATORY DATA: Sodium 136, potassium 4.4, chloride 103, bicarbonate 23.1, BUN 32, creatinine 1.6, glucose 259. Troponin is 3.38. INR is 1.0. White count is 9.3, hematocrit 35.0, platelets 336. EKG shows sinus rhythm with nonspecific ST changes. IMPRESSION: [id number] myocardial infarction. The patient has signs and symptoms consistent with non-ST elevation myocardial infarction. We will start nitroglycerin drip to get her completely pain free. Otherwise, we will continue her medical therapy. PLAN: Will be for a cardiac catheterization by Dr. Shukla, probably Wednesday. Thank you again for the opportunity to participate in this patient's care. MD INDIA Whitaker/ALIDA , 04:43 PM , 07:51 PM
--- NOTE | 2017-09-11 20:10 | EKG ---
Date Performed: 09/11/2017 Time Performed: 04:31:25 PTAGE: 61 years EKG: Sinus rhythm WITH SINUS ARRHYTHMIA NONSPECIFIC T-WAVE ABNORMALITY BORDERLINE ECG Since the PREVIOUS TRACING , no significant change noted PREVIOUS TRACIN01/26/2017 01.13 DOCTOR: Madhav Longoria Interpretating Date/Time 09/11/2017 20:08:05
--- NOTE | 2017-09-11 20:10 | EKG ---
Date Performed: 09/11/2017 Time Performed: 08:59:46 PTAGE: 61 years EKG: Sinus rhythm NORMAL ECG Since the PREVIOUS TRACING , no significant change noted PREVIOUS TRACIN09/11/2017 04.31 DOCTOR: Madhav Longoria Interpretating Date/Time 09/11/2017 20:08:15
[2017-09-11] MEDS: INSULIN DETEMIR 100 UNITS/ML VIAL SQ SCH (20:32)
[2017-09-11] MEDS: INSULIN ASPART SUPPLEMENTAL SCALE SQ SCH (20:32)
[2017-09-11] MEDS: ALLOPURINOL 300 MG TAB PO SCH (20:33)
[2017-09-11] MEDS: METOPROLOL TARTRATE 50 MG TAB PO SCH (20:33)
[2017-09-11] MEDS: DULoxetine HCl DR 60 MG CAP PO SCH (20:33)
[2017-09-11] MEDS: PANTOPRAZOLE SOD 20 MG DELAYED RELEASE TAB PO SCH (20:34)
[2017-09-11] MEDS: CARVEDILOL 3.125 MG TAB PO SCH (20:34)
[2017-09-11] MEDS: SODIUM CHLORIDE 0.9% FLUSH 10 ML FLUSH IV FLUSH SCH (20:34)
[2017-09-11] MEDS: CLOPIDOGREL 75 MG TAB PO SCH (20:44)
[2017-09-11 21:35] LABS: AUTOMATED NEUTROPHIL # 6.7 TH/MM3 (1.8-7.7); BASOPHIL # 0.1 TH/MM3 (0-0.2); BASOPHIL % 0.7 % (0.0-2.0); EOSINOPHIL # 0.3 TH/MM3 (0-0.4); EOSINOPHIL % 3.1 % (0.0-4.0); HEMATOCRIT 33.6 % (35.0-46.0); HEMOGLOBIN 11.7 GM/DL (11.6-15.3); LYMPH % 25.8 % (9.0-44.0); LYMPHOCYTE # 2.7 TH/MM3 (1.0-4.8); MEAN CELL VOLUME 96.3 FL (80.0-100.0); MEAN CORPUSCULAR HEMOGLOBIN 33.6 PG (27.0-34.0); MEAN CORPUSCULAR HGB CONC 34.9 % (32.0-36.0); MEAN PLATELET VOLUME 8.6 FL (7.0-11.0); MONO % 6.1 % (0.0-8.0); MONOCYTE # 0.6 TH/MM3 (0-0.9); NEUT % 64.3 % (16.0-70.0); PLATELET COUNT 323 TH/MM3 (150-450); RED BLOOD COUNT 3.49 MIL/MM3 (4.00-5.30); RED CELL DISTRIBUTION WIDTH 14.7 % (11.6-17.2); WHITE BLOOD COUNT 10.5 TH/MM3 (4.0-11.0)
[2017-09-11 22:01] LABS: CHOLESTEROL/ HDL RATIO 4.62 RATIO; HDL CHOLESTEROL 28.3 MG/DL (40.0-60.0)
[2017-09-11 22:08] LABS: TROPONIN I 13.8 NG/ML (0.02-0.05)
[2017-09-12] VITALS (15 sets, daily range): BP systolic 131–171; BP diastolic 56–67; PULSE 71–88; RESP 14–32; TEMP 98.3–99.5; O2SAT 85–96
[2017-09-12 02:39] LABS: TROPONIN I 11.2 NG/ML (0.02-0.05)
[2017-09-12] MEDS ORDERED: CHLORHEXIDINE GLUCONATE 2 % 1 PACK (2 CLOTHS)(extra cloths) TOPICAL PRN (04:30)
[2017-09-12 07:55] LABS: AUTOMATED NEUTROPHIL # 7.3 TH/MM3 (1.8-7.7); BASOPHIL # 0.1 TH/MM3 (0-0.2); EOSINOPHIL # 0.2 TH/MM3 (0-0.4); EOSINOPHIL % 2.3 % (0.0-4.0); HEMATOCRIT 34.3 % (35.0-46.0); HEMOGLOBIN 11.7 GM/DL (11.6-15.3); LYMPH % 20.6 % (9.0-44.0); LYMPHOCYTE # 2.1 TH/MM3 (1.0-4.8); MEAN CELL VOLUME 95.3 FL (80.0-100.0); MEAN CORPUSCULAR HEMOGLOBIN 32.6 PG (27.0-34.0); MEAN CORPUSCULAR HGB CONC 34.2 % (32.0-36.0); MEAN PLATELET VOLUME 8.2 FL (7.0-11.0); MONO % 5.5 % (0.0-8.0); MONOCYTE # 0.6 TH/MM3 (0-0.9); NEUT % 70.6 % (16.0-70.0); PLATELET COUNT 310 TH/MM3 (150-450); RED BLOOD COUNT 3.59 MIL/MM3 (4.00-5.30); RED CELL DISTRIBUTION WIDTH 14.3 % (11.6-17.2); WHITE BLOOD COUNT 10.4 TH/MM3 (4.0-11.0)
[2017-09-12] MEDS: INSULIN ASPART SUPPLEMENTAL SCALE SQ SCH ×4 (08:00→20:24)
[2017-09-12 08:26] LABS: TROPONIN I 7.94 NG/ML (0.02-0.05)
[2017-09-12] MEDS: SODIUM CHLORIDE 0.9% FLUSH 10 ML FLUSH IV FLUSH SCH ×2 (08:34→20:24)
[2017-09-12] MEDS: MORPHINE SULFATE 4 MG/ML INJ IV PUSH PRN (08:35)
[2017-09-12] MEDS: METOPROLOL TARTRATE 50 MG TAB PO SCH ×3 (08:36→20:23)
[2017-09-12] MEDS: CLOPIDOGREL 75 MG TAB PO SCH (08:36)
[2017-09-12] MEDS: GABAPENTIN 400 MG CAP PO SCH (08:36)
[2017-09-12] MEDS: PANTOPRAZOLE SOD 20 MG DELAYED RELEASE TAB PO SCH ×2 (08:39→20:23)
[2017-09-12] MEDS: INSULIN DETEMIR 100 UNITS/ML VIAL SQ SCH ×2 (08:39→20:24)
[2017-09-12] MEDS: INSULIN ASPART 1,000 UNITS/10 ML VIAL SQ SCH ×3 (08:39→18:00)
[2017-09-12] MEDS: FUROSEMIDE 40 MG TAB PO SCH (08:39)
[2017-09-12] MEDS: ASPIRIN EC 325 MG TABEC PO SCH (08:39)
[2017-09-12] MEDS: CARVEDILOL 3.125 MG TAB PO SCH (08:39)
[2017-09-12] MEDS: LIPASE/PROTEASE/AMYLASE (12,000/38,000/60,000) CAP PO SCH ×3 (08:45→18:02)
--- NOTE | 2017-09-12 08:58 | PD.CARD.PN ---
Subjective Subjective Remarks Pt feels well, no cp Objective Medications Current Medications Medications (Trade) Dose Ordered Sig/Tree Route Start Time Stop Time Status Last Admin (NS Flush) 2 ml UNSCH PRN IVF 09/11/17 07:30 Heparin Sodium/ Dextrose 250 ml @ 10 mls/hr TITRATE PRN IV 09/11/17 11:00 09/11/17 17:47 Nitroglycerin/ Dextrose 250 ml @ 1.5 mls/hr TITRATE PRN IV 09/11/17 16:45 09/11/17 17:06 (Zyloprim) 300 mg HS PO 09/11/17 21:00 09/11/17 20:33 (Xanax) 1 mg Q6H PRN PO 09/11/17 18:45 (Cymbalta Dr) 60 mg HS PO 09/11/17 21:00 09/11/17 20:33 (Lasix) 40 mg DAILY PO 09/12/17 09:00 09/12/17 08:39 (Neurontin) 800 mg DAILY PO 09/12/17 09:00 09/12/17 08:36 (NovoLOG INJ) 25 units TID SQ 09/12/17 09:00 09/12/17 08:39 (Levemir Inj) 60 units BID SQ 09/11/17 21:00 09/12/17 08:39 (Lopressor) 50 mg BID PO 09/11/17 21:00 09/12/17 08:36 (Percocet 10-325 Mg) 1 tab Q4H PRN PO 09/11/17 18:45 (Requip) 2 mg TID PO 09/12/17 09:00 09/12/17 08:39 (Aldactone) 50 mg DAILY PO 09/12/17 09:00 09/12/17 08:39 (Protonix) 20 mg BID PO 09/11/17 21:00 09/12/17 08:39 (NS Flush) 2 ml BID IV FLUSH 09/11/17 21:00 09/12/17 08:34 (NS Flush) 2 ml UNSCH PRN IV FLUSH 09/11/17 18:45 (Ecotrin Ec) 325 mg DAILY PO 09/12/17 09:00 09/12/17 08:39 (Plavix) 75 mg DAILY PO 09/11/17 18:45 09/12/17 08:36 (Morphine Inj) 2 mg Q30M PRN IV PUSH 09/11/17 18:45 09/12/17 08:35 (Tylenol) 650 mg Q6H PRN PO 09/11/17 18:45 09/12/17 03:40 (Colace) 100 mg BID PRN PO 09/11/17 18:45 (Zofran Inj) 4 mg Q6H PRN IV PUSH 09/11/17 18:45 (Coreg) 3.125 mg BID PO 09/11/17 21:00 09/12/17 08:39 (D50w (Vial) Inj) 50 ml UNSCH PRN IV PUSH 09/11/17 19:00 (Glucagon Inj) 1 mg UNSCH PRN OTHER 09/11/17 19:00 (NovoLOG SUPPLEMENTAL SCALE) 1 ACHS SLIDING SCALE SQ 09/11/17 21:00 09/12/17 08:00 (Creon 12-38-60) 3 cap TIDPC PO 09/12/17 09:30 09/12/17 08:45 Miscellaneous Information Patient in critical care unit? Ass... Q361D .XX 09/12/17 04:30 09/12/17 04:30 (Chlorhexidine 2% Cloth) 3 pack DAILY@04 TOPICAL 09/13/17 04:00 09/17/17 04:01 (Chlorhexidine 2% Cloth) 3 pack UNSCH PRN TOPICAL 09/12/17 04:30 09/17/17 04:22 Vital Signs / I&O Vital Signs Date Time Temp Pulse Resp B/P (MAP) Pulse Ox O2 Delivery O2 Flow Rate FiO2 09/12/17 08:00 98.7 77 16 171/57 (95) 94 09/12/17 08:00 77 09/12/17 06:00 77 09/12/17 04:40 14 09/12/17 04:00 80 09/12/17 04:00 98.3 80 14 155/56 (89) 95 09/12/17 02:00 82 09/12/17 00:00 98.5 84 17 131/59 (83) 96 09/12/17 00:00 84 09/11/17 23:33 16 09/11/17 22:00 72 3/24/18 20:00 98.7 81 16 187/73 (111) 96 09/11/17 20:00 81 09/11/17 19:00 74 15 99 09/11/17 18:00 74 16 185/80 (115) 97 09/11/17 18:00 74 09/11/17 18:00 74 09/11/17 17:20 98.4 72 13 171/77 (108) 98 09/11/17 17:11 13 09/11/17 17:06 71 171/77 09/11/17 16:00 82 20 179/82 (114) 96 Room Air 09/11/17 16:00 09/11/17 15:20 72 09/11/17 13:56 73 20 107/77 (87) 97 Room Air 09/11/17 11:22 80 20 173/92 (119) 96 Room Air 09/11/17 10:17 80 20 196/100 (132) 95 Room Air 09/11/17 09:14 76 20 175/80 (111) 95 Room Air 09/11/17 08:57 95 Room Air I/O 09/11/17 09/11/17 09/11/17 09/12/17 09/12/17 09/12/17 07:00 15:00 23:00 07:00 15:00 23:00 Intake Total 0 ml 120 ml Output Total 0 ml Balance 0 ml 120 ml Intake Oral 0 ml 120 ml Output Urine Total 0 ml # Voids 3 # Bowel Movements 0 Physical Exam GENERAL: This is a well-nourished, well-developed patient, in no apparent distress. CARDIOVASCULAR: Regular rate and rhythm without murmurs, gallops, or rubs. RESPIRATORY: Clear to auscultation. Breath sounds equal bilaterally. No wheezes , rales, or rhonchi. GASTROINTESTINAL: Abdomen soft, non-tender, nondistended. Normal active bowel sounds MUSCULOSKELETAL: Extremities without clubbing, cyanosis, or edema. NEURO: Alert & Oriented x4 to person, place, time, situation. Moves all ext x4 Laboratory Laboratory Tests Test 09/11/17 11:35 09/11/17 20:02 09/12/17 01:09 09/12/17 07:30 White Blood Count 9.3 TH/MM3 10.5 TH/MM3 10.4 TH/MM3 Red Blood Count 3.71 MIL/MM3 3.49 MIL/MM3 3.59 MIL/MM3 Hemoglobin 11.7 GM/DL 11.7 GM/DL 11.7 GM/DL Hematocrit 35.0 % 33.6 % 34.3 % Mean Corpuscular Volume 94.3 FL 96.3 FL 95.3 FL Mean Corpuscular Hemoglobin 31.5 PG 33.6 PG 32.6 PG Mean Corpuscular Hemoglobin Concent 33.4 % 34.9 % 34.2 % Red Cell Distribution Width 14.2 % 14.7 % 14.3 % Platelet Count 336 TH/MM3 323 TH/MM3 310 TH/MM3 Mean Platelet Volume 8.3 FL 8.6 FL 8.2 FL Activated Partial Thromboplast Time 23.6 SEC 28.7 SEC 26.4 SEC Neutrophils (%) (Auto) 64.3 % 70.6 % Lymphocytes (%) (Auto) 25.8 % 20.6 % Monocytes (%) (Auto) 6.1 % 5.5 % Eosinophils (%) (Auto) 3.1 % 2.3 % Basophils (%) (Auto) 0.7 % 1.0 % Neutrophils # (Auto) 6.7 TH/MM3 7.3 TH/MM3 Lymphocytes # (Auto) 2.7 TH/MM3 2.1 TH/MM3 Monocytes # (Auto) 0.6 TH/MM3 0.6 TH/MM3 Eosinophils # (Auto) 0.3 TH/MM3 0.2 TH/MM3 Basophils # (Auto) 0.1 TH/MM3 0.1 TH/MM3 CBC Comment DIFF FINAL DIFF FINAL Differential Comment Total Creatine Kinase 449 U/L 381 U/L 268 U/L Creatine Kinase MB 30.0 NG/ML 20.6 NG/ML Creatine Kinase MB % 6.7 % 5.4 % Troponin I 13.80 NG/ML 11.20 NG/ML 7.94 NG/ML Triglycerides Level 382 MG/DL Cholesterol Level 131 MG/DL LDL Cholesterol 26 MG/DL HDL Cholesterol 28.3 MG/DL Cholesterol/HDL Ratio 4.62 RATIO Assessment and Plan Problem List: (1) NSTEMI (non-ST elevated myocardial infarction) ICD Codes: I21.4 - Non-ST elevation (NSTEMI) myocardial infarction Plan: Doing well, no cp; on asa/bb/statin/nitro ggt/heparin ggt; Dr Shukla will cath in the AM; npo past midnight. (2) CAD (coronary artery disease), autologous vein bypass graft ICD Codes: I25.810 - Atherosclerosis of coronary artery bypass graft(s) without angina pectoris Plan: Anatomy, below (different from what I understood the patient to be saying yesterday); continue medical mgt. Permanent Comment: SVG to RCA; stent in LAD Last Edited By: Geo Simmons MD on Sep 12, 2017 08:57 Geo Simmons MD Sep 12, 2017 08:58
[2017-09-12] MEDS ORDERED: SPIRONOLACTONE 50 MG TAB PO SCH (09:00)
[2017-09-12] MEDS ORDERED: LIPASE/PROTEASE/AMYLASE (12,000/38,000/60,000) CAP PO SCH (09:30)
[2017-09-12] MEDS ORDERED: POTASSIUM CHLOR 20 MEQ PREMIX 100 ML IV PRN ×2 (10:00)
[2017-09-12] MEDS ORDERED: POTASSIUM PHOSPHATE INJ 30 MMOL in SODIUM CHLOR 0.9% 250 ML INJ 250 ML IV PRN (10:00)
[2017-09-12] MEDS ORDERED: MAGNESIUM SULFATE INJ 2 GM in SODIUM CHLORIDE 0.9% INJ 96 ML IV PRN (10:00)
[2017-09-12] MEDS ORDERED: POTASSIUM CHLORIDE 25 MEQ EFFERVESCENT TAB PO PRN (10:00)
[2017-09-12] MEDS ORDERED: POTASSIUM PHOSPHATE MONOBASIC 500 MG TAB PO PRN (10:00)
[2017-09-12] MEDS ORDERED: POTASSIUM PHOSPHATE MONOBASIC 500 MG TAB PO/TUBE PRN (10:00)
[2017-09-12] MEDS ORDERED: MAGNESIUM OXIDE 400 MG TAB PO PRN (10:00)
[2017-09-12] MEDS ORDERED: SODIUM PHOSPHATE INJ 30 MMOL in SODIUM CHLOR 0.9% 250 ML INJ 240 ML IV PRN (10:00)
[2017-09-12] MEDS ORDERED: MAGNESIUM SULFATE INJ 4 GM in SODIUM CHLORIDE 0.9% INJ 92 ML IV PRN (10:00)
[2017-09-12] MEDS ORDERED: POTASSIUM CHLOR 40 MEQ PREMIX 100 ML IV PRN ×2 (10:00)
--- NOTE | 2017-09-12 11:52 | MB ---
cc: Miguel Shukla DO DATE: 09/12/2017 REASON FOR CONSULTATION: NSTEMI for possible cardiac catheterization. HISTORY OF PRESENT ILLNESS: Mena Oro is a pleasant 61-year-old female who sees my partner, Dr. Menendez and presented to [facility] Emergency Room on 09/11/2017 due to chest pain. The day before, she started noticing chest discomfort radiating into her neck and down her left arm. She states that it is more than she has had in the past and so she went to [facility]. She was given some nitroglycerin and she started feeling better, although it did not take the pain totally away. Enzymes were continued to be followed. She was given a nitroglycerin and this took away some of the pain. Troponins were checked and they were elevated and so she was transferred to [facility]. Since that time, she has been started on heparin drip as well as a nitroglycerin drip and in seeing her she states that she feels better with no current chest pain. PAST MEDICAL HISTORY: 1. Coronary artery disease with a history of myocardial infarction. 2. Peripheral artery disease. 3. Hyperlipidemia. 4. Chronic obstructive pulmonary disease. 5. Diabetes mellitus type 2. 6. Hypertension. 7. Chronic kidney disease stage III. 8. Congestive heart failure of unknown type. PAST SURGICAL HISTORY: 1. Multiple stents placed in both her RCA and LAD with 6-7 stents in her RCA which has since occluded. 2. Cardiac catheterization (10/08/2016) RCA 100% occluded. Left main no significant disease. LAD 20% disease. Left circumflex mild luminal irregularities. SVG to PDA patent. 3. Single vessel bypass with SVG to PDA. 4. Angioplasty of her left lower extremity around 1 year ago. 5. Tubal ligation. 6. Appendectomy. 7. Hysterectomy. 8. Tonsillectomy. ALLERGIES: 1. LOSARTAN. 2. OLMESARTAN. MEDICATIONS: 1. Zyrtec 10 mg daily. 2. Bethanechol 12.5 mg four times a day. 3. Tizanidine 4 mg four times a day as needed. 4. Iron 325 mg b.i.d. 5. Plavix 75 mg daily. 6. Lipitor 40 mg every night. 7. Metoprolol tartrate 50 mg b.i.d. 8. Spironolactone 50 mg daily. 9. Aspirin 81 mg daily. 10. Percocet 10/325 every 4 hours as needed for pain. 11. Gabapentin 800 mg daily. 12. Cymbalta 60 mg every night. 13. Xanax 1 mg every 6 hours as needed for anxiety. 14. Ropinirole 2 mg three times a day. 15. Creon three times a day. 16. Omeprazole 20 mg b.i.d. 17. Lasix 40 mg daily. 18. Metformin 1000 mg b.i.d. 19. NovoLog 25 units three times a day. 20. Levemir 60 units b.i.d. 21. Allopurinol 300 mg every night. FAMILY HISTORY: Denies sudden cardiac within the family. SOCIAL HISTORY: The patient occasionally drinks alcohol. She previously smoked but quit a number of years ago. She denies drug abuse. REVIEW OF SYSTEMS: Fourteen systems were reviewed including osteopathic pertinent positives and negatives above, otherwise negative. PHYSICAL EXAMINATION: VITAL SIGNS: Temperature 98.3, heart rate 80, blood pressure 155/56, respirations 14, pulse oximetry 95% on 2 liters. GENERAL: The patient appears well in no acute distress, alert, awake and oriented x 3. HEENT: Extraocular muscles intact. Mucous membranes moist. NECK: Supple. No JVD at 45 degrees. No carotid bruits heard bilaterally. Carotid upstroke is brisk in nature. HEART: Regular rate and rhythm. Positive first and second heart sounds with no noted murmurs, gallops or rubs. LUNGS: Clear to auscultation bilaterally. No wheezes, rales or rhonchi. ABDOMEN: Soft, nontender, nondistended. No organomegaly noted. EXTREMITIES: Show no clubbing, cyanosis or edema. Femoral distal pulses intact bilaterally. NEUROLOGIC: No focal deficits. SKIN: Warm, dry and intact. OSTEOPATHIC: Mild lordosis, no kyphoscoliosis or paraspinal tender points. LABORATORY DATA: Hemoglobin 11.7, hematocrit 34.3, platelets 310. Potassium 4.4, BUN 32, creatinine 1.6. Troponin 13.8. Electrocardiogram (09/11/2017 at 08:59) sinus rhythm with no acute ST-T wave changes. IMPRESSION: 1. NSTEMI. 2. Coronary artery disease with a history of multiple stents in the RCA, at least 1 stent in the LAD, and saphenous vein graft to PDA. 3. Obesity with a body mass index of 43. 4. Hypertension. 5. Hyperlipidemia. 6. Diabetes mellitus. 7. Chronic kidney disease, stage III. RECOMMENDATIONS: 1. Ms. Oro is currently stable on heparin and nitroglycerin. We will plan for cardiac catheterization tomorrow. If at anytime she has chest pain unrelieved by medications, or she becomes hemodynamically or electrically unstable, this will be reevaluated for possible earlier invasive management. 2. Due to her chronic kidney disease I am going to hold her spironolactone, as well as her Lasix for her cardiac catheterization in the morning. I did discuss with her depending on the results of this, if she does need an intervention if I have not used a whole lot of contrast, then maybe possibly tomorrow versus staging the procedure and bring her back on Wednesday. 3. She will continue on her aspirin, Plavix and Lipitor therapy. 4. We will check a 2-D echo to look at her overall left ventricular function, cardiac structure and possible valvulopathies. 5. Further recommendations will be made after coronary visualization. Thank you for allowing me to see Mena Oro. If there are any questions, please do not hesitate to call. Miguel Shukla DO VGP/TL , 11:16 AM , 11:51 AM
--- NOTE | 2017-09-12 12:50 | HHI.PR ---
Subjective Remarks Patient c/o chest pain earlier. Now chest pain free Denies sob. Objective Vitals Vital Signs Date Time Temp Pulse Resp B/P (MAP) Pulse Ox O2 Delivery O2 Flow Rate FiO2 09/12/17 12:00 98.4 88 32 134/57 (82) 96 09/12/17 12:00 88 09/12/17 10:00 71 09/12/17 08:40 23 09/12/17 08:00 98.7 77 16 171/57 (95) 94 09/12/17 08:00 77 09/12/17 06:00 77 09/12/17 04:40 14 09/12/17 04:00 80 09/12/17 04:00 98.3 80 14 155/56 (89) 95 09/12/17 02:00 82 09/12/17 00:00 98.5 84 17 131/59 (83) 96 09/12/17 00:00 84 09/11/17 22:00 72 09/11/17 20:00 98.7 81 16 187/73 (111) 96 09/11/17 20:00 81 09/11/17 19:00 74 15 99 09/11/17 18:00 74 16 185/80 (115) 97 09/11/17 18:00 74 09/11/17 18:00 74 09/11/17 17:20 98.4 72 13 171/77 (108) 98 09/11/17 17:11 13 09/11/17 17:06 71 171/77 09/11/17 16:00 82 20 179/82 (114) 96 Room Air 09/11/17 16:00 09/11/17 15:20 72 09/11/17 13:56 73 20 107/77 (87) 97 Room Air I/O 09/11/17 09/11/17 09/11/17 09/12/17 09/12/17 09/12/17 07:00 15:00 23:00 07:00 15:00 23:00 Intake Total 0 ml 120 ml Output Total 0 ml Balance 0 ml 120 ml Intake Oral 0 ml 120 ml Output Urine Total 0 ml # Voids 3 # Bowel Movements 0 Result Diagram: 09/12/1730 09/11/17 0800 Imaging Last Impressions Chest X-Ray 09/11/17727 Signed Impressions: Service Date/Time: Monday, September 11, 2017 07:32 - CONCLUSION: Cardiomegaly. No focal infiltrate or pulmonary vascular congestion. Eric Krishnamurthy MD Objective Remarks GENERAL: This is a well-nourished, well-developed patient,nad SKIN: No rashes, ecchymoses or lesions. Cool and dry. HEAD: Atraumatic. Normocephalic. No temporal or scalp tenderness. EYES: Pupils equal round and reactive. Extraocular motions intact. No scleral icterus. No injection or drainage. ENT: Nose without bleeding, purulent drainage or septal hematoma. Throat without erythema, tonsillar hypertrophy or exudate. Uvula midline. Airway patent. NECK: Trachea midline. No JVD or lymphadenopathy. Supple, nontender, no meningeal signs. CARDIOVASCULAR: Regular rate and rhythm without murmurs, gallops, or rubs. RESPIRATORY: Clear to auscultation. Breath sounds equal bilaterally. No wheezes , rales, or rhonchi. GASTROINTESTINAL: Obese abdomen, soft, non-tender, nondistended. No hepato- splenomegaly, or palpable masses. No guarding. MUSCULOSKELETAL: Extremities without clubbing, cyanosis, or edema. No joint tenderness, effusion, or edema noted. No calf tenderness. Negative Homans sign bilaterally. Tenderness to palpation of substernal region. NEUROLOGICAL: Awake and alert. Cranial nerves II through XII intact. Motor and sensory grossly within normal limits. Five out of 5 muscle strength in all muscle groups. Normal speech. Medications and IVs Current Medications Medications (Trade) Dose Ordered Sig/Tree Route Start Time Stop Time Status Last Admin Heparin Sodium/ Dextrose 250 ml @ 10 mls/hr TITRATE PRN IV 09/11/17 11:00 09/11/17 17:47 Nitroglycerin/ Dextrose 250 ml @ 1.5 mls/hr TITRATE PRN IV 09/11/17 16:45 09/11/17 17:06 (Zyloprim) 300 mg HS PO 09/11/17 21:00 09/11/17 20:33 (Xanax) 1 mg Q6H PRN PO 09/11/17 18:45 (Cymbalta Dr) 60 mg HS PO 09/11/17 21:00 09/11/17 20:33 (Lasix) 40 mg DAILY PO 09/12/17 09:00 Future Hold 09/12/17 08:39 (Neurontin) 800 mg DAILY PO 09/12/17 09:00 09/12/17 08:36 (NovoLOG INJ) 25 units TID SQ 09/12/17 09:00 09/12/17 12:41 (Levemir Inj) 60 units BID SQ 09/11/17 21:00 09/12/17 08:39 (Percocet 10-325 Mg) 1 tab Q4H PRN PO 09/11/17 18:45 (Requip) 2 mg TID PO 09/12/17 09:00 09/12/17 12:41 (Aldactone) 50 mg DAILY PO 09/12/17 09:00 Future Hold 09/12/17 08:39 (Protonix) 20 mg BID PO 09/11/17 21:00 09/12/17 08:39 (NS Flush) 2 ml BID IV FLUSH 09/11/17 21:00 09/12/17 08:34 (NS Flush) 2 ml UNSCH PRN IV FLUSH 09/11/17 18:45 (Ecotrin Ec) 325 mg DAILY PO 09/12/17 09:00 09/12/17 08:39 (Plavix) 75 mg DAILY PO 09/11/17 18:45 09/12/17 08:36 (Morphine Inj) 2 mg Q30M PRN IV PUSH 09/11/17 18:45 09/12/17 08:35 (Tylenol) 650 mg Q6H PRN PO 09/11/17 18:45 09/12/17 03:40 (Colace) 100 mg BID PRN PO 09/11/17 18:45 (Zofran Inj) 4 mg Q6H PRN IV PUSH 09/11/17 18:45 (D50w (Vial) Inj) 50 ml UNSCH PRN IV PUSH 09/11/17 19:00 (Glucagon Inj) 1 mg UNSCH PRN OTHER 09/11/17 19:00 (NovoLOG SUPPLEMENTAL SCALE) 1 ACHS SLIDING SCALE SQ 09/11/17 21:00 09/12/17 12:00 (Creon 12-38-60) 3 cap TIDPC PO 09/12/17 09:30 09/12/17 12:41 Miscellaneous Information Patient in critical care unit? Ass... Q361D .XX 09/12/17 04:30 09/12/17 04:30 (Chlorhexidine 2% Cloth) 3 pack DAILY@04 TOPICAL 09/13/17 04:00 09/17/17 04:01 (Chlorhexidine 2% Cloth) 3 pack UNSCH PRN TOPICAL 09/12/17 04:30 09/17/17 04:22 (Lipitor) 20 mg HS PO 09/12/17 21:00 (Lopressor) 100 mg BID PO 09/12/17 10:00 09/12/17 10:42 Potassium Chloride 100 ml @ 50 mls/hr Q2H PRN IV 09/12/17 10:00 Potassium Chloride 100 ml @ 50 mls/hr Q2H PRN IV 09/12/17 10:00 (K-Lyte Cl Eff) 50 meq UNSCH PRN PO 09/12/17 10:00 Potassium Chloride 100 ml @ 25 mls/hr UNSCH PRN IV 09/12/17 10:00 Potassium Chloride 100 ml @ 50 mls/hr Q2H PRN IV 09/12/17 10:00 Magnesium Sulfate 4 gm/Sodium Chloride 100 ml @ 50 mls/hr UNSCH PRN IV 09/12/17 10:00 (Mag-Ox) 800 mg UNSCH PRN PO 09/12/17 10:00 Magnesium Sulfate 2 gm/Sodium Chloride 100 ml @ 50 mls/hr UNSCH PRN IV 09/12/17 10:00 (K-Phos) 2,000 mg Q4H PRN PO 09/12/17 10:00 Sodium Phosphate 30 mmol/Sodium Chloride 250 ml @ 42 mls/hr UNSCH PRN IV 09/12/17 10:00 (K-Phos) 2,000 mg UNSCH PRN PO/TUBE 09/12/17 10:00 Potassium Phosphate 30 mmol/ Sodium Chloride 260 ml @ 42 mls/hr UNSCH PRN IV 09/12/17 10:00 A/P Problem List: (1) NSTEMI (non-ST elevated myocardial infarction) ICD Code: I21.4 - Non-ST elevation (NSTEMI) myocardial infarction Status: Acute Plan: EKG reviewed by me showed sinus rhythm at a ventricular rate of 77 bpm, no ST-T changes suggestive of active ischemia. Troponin elevated at 3.38. ED physician started IV heparin drip, continue. Trend cardiac enzymes Continue aspirin, beta-matthew, statin, Plavix Continue nitroglycerin drip. Cardiology consulted ER physician discussed the case with with Dr. Frazier. 09/12 troponins peaked at 13.8 on 09/11, now down trending. Continue to monitor cardiac enzymes. For cardiac cath in a.m. please notify cardiology if the patient has continuous chest pain which is not subsiding with medications. (2) TIMOTHY (acute kidney injury) ICD Code: N17.9 - Acute kidney failure, unspecified Plan: Patient has history of CKD stage III, however creatinine on admission is 1.60. Likely prerenal. Will place on gentle IV fluids, monitor BUN and creatinine, strict I's and O's, avoid nephrotoxins. Hold the spironolactone and Lasix. (3) Transaminitis ICD Code: R74.0 - Nonspecific elevation of levels of transaminase and lactic acid dehydrogenase [LDH] Status: Acute Plan: Mild elevation of AST. Monitor LFTs. (4) Type 2 diabetes mellitus ICD Code: E11.9 - Type 2 diabetes mellitus without complications Status: Acute Plan: Blood sugars are severely elevated in the mid 200 range Hold metformin. Continue home insulin. The patient currently on basal bolus therapy with insulin Levemir and insulin NovoLog. Placed on SSI with insulin NovoLog. 09/12 blood sugar still elevated in the 200s. I will increase Levemir dose to 65 units subcutaneous daily. The dose should be cut in half if the patient is n.p.o. (5) COPD (chronic obstructive pulmonary disease) ICD Code: J44.9 - Chronic obstructive pulmonary disease, unspecified Plan: Patient is status post 1 dose of IV Solu-Medrol in the ED. 09/12 COPD seems to be stable. Patient is satting well on room air. Continue supplemental oxygen to keep oxygen saturation more than 92%. DuoNeb's as needed. (6) Uncontrolled hypertension ICD Code: I10 - Essential (primary) hypertension Plan: The patient has severely elevated blood pressure. Resume home antihypertensive medications. Labetalol as needed for systolic blood pressure more than 160. 09/12 blood pressure much improved after metoprolol dose increased to 100 minutes p.o. twice daily. Continue nitroglycerin IV drip. (7) Diabetic neuropathy ICD Code: E11.40 - Type 2 diabetes mellitus with diabetic neuropathy, unspecified Plan: Seems to be stable. Continue gabapentin. Assessment and Plan DVT prophylaxis: On heparin drip. GI prophylaxis: On PPI. Discharge Planning Okay to transfer to the cardiac care unit. For cardiac cath in a.m. Problem Qualifiers (1) COPD (chronic obstructive pulmonary disease): (2) Diabetic neuropathy: Qualified Codes: E11.42 - Type 2 diabetes mellitus with diabetic polyneuropathy Agustin Santos MD Sep 12, 2017 12:50
[2017-09-12 13:03] LABS: BICARBONATE 25.3 MEQ/L (21.0-32.0); CALCIUM 9.7 MG/DL (8.5-10.1); CREATININE 1.31 MG/DL (0.50-1.00); MAGNESIUM 2.1 MG/DL (1.5-2.5); PHOSPHORUS 2.8 MG/DL (2.5-4.9)
[2017-09-12] MEDS: NITROGLYCERIN-D5W 50 MG/250 ML 250 ML IV PRN (17:21)
[2017-09-12] MEDS: HEPARIN-D5W 25,000 U/250 ML 250 ML IV PRN (17:26)
[2017-09-12] MEDS: oxyCODONE/ACETAMINOPHEN 10 MG/325 MG TAB PO PRN (20:23)
[2017-09-12] MEDS: ALLOPURINOL 300 MG TAB PO SCH (20:23)
[2017-09-12] MEDS: ATORVASTATIN 20 MG TAB PO SCH (20:23)
[2017-09-12] MEDS: DULoxetine HCl DR 60 MG CAP PO SCH (20:31)
[2017-09-13] VITALS (26 sets, daily range): BP systolic 109–158; BP diastolic 48–67; PULSE 64–83; RESP 16–19; TEMP 98.2–98.9; O2SAT 93–98
[2017-09-13] MEDS: CHLORHEXIDINE GLUCONATE 2 % 1 PACK (2 CLOTHS)(taper/protocol) TOPICAL SCH (03:46)
[2017-09-13 04:37] LABS: AUTOMATED NEUTROPHIL # 6.3 TH/MM3 (1.8-7.7); BASOPHIL # 0.1 TH/MM3 (0-0.2); BASOPHIL % 0.7 % (0.0-2.0); EOSINOPHIL # 0.4 TH/MM3 (0-0.4); EOSINOPHIL % 3.6 % (0.0-4.0); HEMOGLOBIN 11.1 GM/DL (11.6-15.3); LYMPH % 25.7 % (9.0-44.0); LYMPHOCYTE # 2.6 TH/MM3 (1.0-4.8); MEAN CELL VOLUME 96.2 FL (80.0-100.0); MEAN CORPUSCULAR HEMOGLOBIN 32.5 PG (27.0-34.0); MEAN CORPUSCULAR HGB CONC 33.7 % (32.0-36.0); MEAN PLATELET VOLUME 8.4 FL (7.0-11.0); MONO % 6.6 % (0.0-8.0); MONOCYTE # 0.7 TH/MM3 (0-0.9); NEUT % 63.4 % (16.0-70.0); PLATELET COUNT 297 TH/MM3 (150-450); RED BLOOD COUNT 3.43 MIL/MM3 (4.00-5.30); RED CELL DISTRIBUTION WIDTH 14.4 % (11.6-17.2); WHITE BLOOD COUNT 9.9 TH/MM3 (4.0-11.0)
[2017-09-13 04:46] LABS: ALBUMIN 3.3 GM/DL (3.4-5.0); ALT (GPT) 28 U/L (10-53); AST (GOT) 40 U/L (15-37); BICARBONATE 25.6 MEQ/L (21.0-32.0); BLOOD UREA NITROGEN 24 MG/DL (7-18); CALCIUM 9.4 MG/DL (8.5-10.1); CHLORIDE 103 MEQ/L (98-107); CREATININE 1.24 MG/DL (0.50-1.00); GLOMERULAR FILTRATION RATE 44 ML/MIN (>89); GLUCOSE,RANDOM 164 MG/DL (74-106); MAGNESIUM 2.2 MG/DL (1.5-2.5); PHOSPHORUS 3.7 MG/DL (2.5-4.9); SODIUM (NA) 138 MEQ/L (136-145)
[2017-09-13 04:48] LABS: ALKALINE PHOSPHATASE 103 U/L (45-117); TOTAL BILIRUBIN ADULT 0.5 MG/DL (0.2-1.0); TOTAL PROTEIN 7.4 GM/DL (6.4-8.2)
[2017-09-13] MEDS: INSULIN ASPART SUPPLEMENTAL SCALE SQ SCH ×4 (08:00→21:00)
[2017-09-13] MEDS: INSULIN DETEMIR 100 UNITS/ML VIAL SQ SCH ×2 (08:45→21:00)
[2017-09-13] MEDS: METOPROLOL TARTRATE 50 MG TAB PO SCH ×2 (08:46→21:52)
[2017-09-13] MEDS: ASPIRIN EC 325 MG TABEC PO SCH (08:46)
[2017-09-13] MEDS: PANTOPRAZOLE SOD 20 MG DELAYED RELEASE TAB PO SCH ×2 (08:46→21:52)
[2017-09-13] MEDS: GABAPENTIN 400 MG CAP PO SCH (08:46)
[2017-09-13] MEDS: INSULIN ASPART 1,000 UNITS/10 ML VIAL SQ SCH ×3 (08:47→17:31)
[2017-09-13] MEDS: LIPASE/PROTEASE/AMYLASE (12,000/38,000/60,000) CAP PO SCH ×3 (08:47→17:35)
[2017-09-13] MEDS: CLOPIDOGREL 75 MG TAB PO SCH (08:47)
[2017-09-13] MEDS: oxyCODONE/ACETAMINOPHEN 10 MG/325 MG TAB PO PRN ×3 (08:50→21:52)
[2017-09-13] MEDS: SODIUM CHLORIDE 0.9% FLUSH 10 ML FLUSH IV FLUSH SCH ×2 (08:51→21:00)
[2017-09-13] MEDS: HEPARIN-D5W 25,000 U/250 ML 250 ML IV PRN (08:57)
[2017-09-13] MEDS ORDERED: HEPARIN SODIUM - IV 10,000 UNITS/10 ML VIAL ONE (10:46)
[2017-09-13] MEDS ORDERED: NITROGLYCERIN INJ 5 ML ONE (10:46)
[2017-09-13] MEDS ORDERED: HEPARIN-NS/PF FLUSH BAG 2,000 ML IV FLUSH ONE (10:46)
[2017-09-13] MEDS ORDERED: VERAPAMIL HCL 5 MG/2 ML VIAL ONE (10:46)
[2017-09-13] MEDS ORDERED: MIDAZOLAM HCL 2 MG/2 ML VIAL ONE (10:47)
--- NOTE | 2017-09-13 11:11 | CATHPROC ---
[facility] HIS Report Study Information Study Number Admission Scheduled Start Study Start [id number] Sep 11 2017 11:14AM 09/13/2017 Sep 13 2017 9:20AM [place] [facility] Cardiac Catheterization Admit Source Facility Department Emergency department [facility] - Industrial Economics Teacher Physician and Clinical Staff Initial Miguel Tenorio Players Assistant Mena Kelley,YESSENIA Other Anson Kuo,RT(R) Recorder Prisca Rivera BSN Scrub Lefford, [place],RT(R) Procedures Performed Procedure Location (Site) Vessel Name Angiogram LV AO Arch (A1) Aorta Coronary Angiograms LCA Left Coronary Coronary Angiograms SVG-RCA Right Coronary L Heart Cath Wire insertion Fem Art (right) Femoral Art Wire insertion Radial (right) Radial Art. Equipment Time Ball Machine Operator Description Size Mfg Part Number Used/Scraped TRANSDUCER, TRUWAVE [id number] 09:22 [employer] * Used W/FRANK *[id number] INTRODUCER SET, 10:36 [employer] FR 5 [id number] *[id number] Used MICROPUNCTURE, STIFFENED [id number] *[id number] 534-548T *[id number] 534-520T *[id number] 534-521T *[id number] 534-542T *[id number] 534-550S *[id number] 09:22 [employer] PACK, CCL CUSTOM * Used *[id number] 09:22 [employer] SUPPORT, ARTERIAL ADULT [id number] *[id number] Used BAND, RADIAL COMPRESSION TR [id number] 10:53 [employer] 24CM Used SHORT 24 *[id number] SHEATH, FR6 RADIAL PRELUDE 09:29 [employer] FR 6 [id number] Used EASE 11CM [id number] 09:22 [employer] WIRE, EXCHANGE 260CM 3MMJ 260CM Used *[id number] 09:22 NAMIC MANIFOLD, 4 PORT * Used *[id number] 10:23 NAMIC TUBING, HIGH PRESSURE 48" 48" Used *[id number] 10:38 [employer] OMNIPAQUE, 350 MG, 150ML 150ML [id number] Used 10:38 [employer] OMNIPAQUE, 350 MG, 150ML 150ML [id number] Used 09:22 [employer] OMNIPAQUE, 350 MG, 150ML 150ML [id number] Used 10:38 [employer]ED OMNIPAQUE, 350 MG, 50ML 50ML [id number] Used 10:38 NYCOMED OMNIPAQUE, 350 MG, 50ML 50ML [id number] Used [id number] 09:22 [employer],WARM AIR CCL * Used *[id number] 10:36 TERUMO [employer] SHEATH, FR5 TERUMO (10CM) FR 5 Used *[id number] Equipment Model, Serial, Lot Number and Expiration Data Description Model Number Serial Number Lot Number Expiration Date INTRODUCER SET, [id number] 07-21-2020 MICROPUNCTURE, STIFFENED History: Current Medications Medication Dosage/Unit Route Frequency Last Date/Time Taken PLAVIX ASA History: Allergies Allergy Reaction Benicar Cozaar losartan olmesartan History: Risk Factors Family History of Hypertension Dyslipidemia Previous OH Previous Heart Failure Premature CAD Yes Yes Yes Yes Yes Prior PCI Prior PCIDate Prior CABG Prior CABGDate Yes 09/15/2010 Yes 09/17/2011 Cerebrovascular Peripheral Artery Chronic Lung On Dialysis Diabetes Diabetes Therapy Disease Disease Disease No Yes Yes Yes Yes Insulin History: Symptoms/Diagnosis Selection Items Chest pain History: CV Disease Selection Items Known CAD OH History: Stress Tests Stress or Imaging Studies Performed No History: OH/CV Data Previous Cath Date Previous CABG Date Previous OH Time 09/16/2011 09/17/2011 6 Years History: Other Current Smoker Method Quit Packs a Day Years Used Pack Years No Cigarettes 16 Years Ago 2 30 60 Labs Hgb (g/dl) Hct (%) WBC (l/cumm) Platelets (thousands) 11.60-17.00 35.00-51.00 4.00-11.00 150.00-450.00 11.1 33 9.9 297 Glucose (mg/dl) BUN (mg/dl) Creatinine (mg/dl) BUN:Creatinine (1:x) 74.00-106.00 7.00-18.00 0.50-1.30 10.00-20.00 164 24 1.2 20 Na (meq/l) K (meq/l) 136.00-145.00 3.50-5.10 138 3.8 INR (PTT:PT) 0.90-1.10 1 Troponin I (ng/ml) Troponin T (ng/ml) 0.02-0.05 0.40-2.10 11.2 7.9 Medication Medication Total Dose (Bolus/Oral) Medication Total Dosage/Unit 1% XYLOCAINE 8 mL FENTANYL 50 mcg RADIAL COCKTAIL 5 mL (Bolus) VERSED 0.5 mg Medications (Bolus/Oral) Medication Time Given Dosage/Unit Administered By Reason VERSED 09/13/2017 9:49:58 AM 0.5 mg Mena Kelley 0.5 mg VERSED given in lab by Mena Kelley RN in Left Wrist via Peripheral IV. Ordered by Miguel Regalado FENTANYL 09/13/2017 9:50:11 AM 25 mcg Mena Kelley 25 mcg FENTANYL given in lab by Mena Kelley RN in Left Wrist via Peripheral IV. Ordered by Miguel Gonzales 1% XYLOCAINE 09/13/2017 9:51:12 AM 3 mL Miguel Shukla 3 mL 1% XYLOCAINE given in lab by Miguel Shukla in Right Radial via Subcutaneous. Ordered by Miguel Leong RADIAL COCKTAIL 09/13/2017 9:52:09 AM 5 mL (Bolus) Miguel Shukla 5 mL (Bolus) RADIAL COCKTAIL given in lab by Miguel Shukla via Radial.. Ordered by Yessenia Shukla. Ntg 200mcg Verapamil 2.5mg Heparin 4500U. 1% XYLOCAINE 09/13/2017 10:37:19 AM 5 mL Miguel Shukla 5 mL 1% XYLOCAINE given in lab by Miguel Shukla in Right Groin via Subcutaneous. Ordered by Miguel Daily FENTANYL 09/13/2017 10:53:20 AM 25 mcg Mena Kelley 25 mcg FENTANYL given in lab by Mena Kelley RN in Left Wrist via Peripheral IV. Ordered by Miguel Gonzales Medication (Drip) Medication Time Given Dosage/Unit Concentration/Unit Diluent (ml) Solution HEPARIN DRIP STOPPED 09/13/2017 9:09:22 AM 1500 units/hr 0 1500 units/hr HEPARIN DRIP STOPPED by Prisca Rivera BSN. Pump/Drip Flow = 0 ml/hr using [Solut ion Name]. Ordered by Miguel Shukla IV Solutions 09/13/2017 9:20:10 AM 0 mL (IV) 500 NaCl .9 IV Solutions given in lab by Mena Kelley RN in Left Hand via Peripheral IV. Pump/Drip Flow = 20 ml/hr using NaCl .9. Ordered by Miguel Shukla IV Solutions 09/13/2017 9:23:41 AM 50 mL (IV) NaCl .9 IV Solutions given in lab by Mena Kelley RN in Left Wrist via Peripheral IV. Pump/Drip Flow usin g NaCl .9. Ordered by Miguel Shukla NITROGLYCERIN DRIP 09/13/2017 9:23:12 AM 25 mcg/min 50 mg 250 D5W 25 mcg/min NITROGLYCERIN DRIP given in lab by Mena Kelley RN via Peripheral IV. Pump/Drip Flow = 7.5 ml/hr using D5W with a concentration of 50 mg in 250 ml. Ordered by Miguel Shukla NITROGLYCERIN DRIP 09/13/2017 10:39:28 AM 15 mcg/min 50 mg 250 D5W deacreased to 15 mcg/min NITROGLYCERIN DRIP given in lab by Mena Kelley RN in Left Wrist via Per ipheral IV. Pump/Drip Flow = 4.5 ml/hr using D5W with a concentration of 50 mg in 250 ml. Ordered by Miguel Shukla NITROGLYCERIN DRIP 09/13/2017 10:44:30 AM 5 mcg/min 50 mg 250 D5W decreased to 5 mcg/min NITROGLYCERIN DRIP given in lab by Mena Kelley RN in Left Wrist via Perip heral IV. Pump/Drip Flow = 1.5 ml/hr using D5W with a concentration of 50 mg in 250 ml. Ordered by Miguel Shukla NITROGLYCERN DRIP 09/13/2017 11:00:18 AM 0 units/hr 0 STOPPED 0 units/hr NITROGLYCERN DRIP STOPPED given in lab by Mena Kelley RN. Pump/Drip Flow = 0 ml/hr us ing [Solution Name]. Ordered by Miguel Shukla Initial Case Assessment Cardiovascular HR Rhythm NIBP Chest Pain 74 sr 163/73 0 Edema Present Skin color Skin None Normal Warm Dry Circulatory - Right Pulses Dorsalis Pedis Femoral Radial 3 3 3 Scale (0,1,2,3,4,d) Circulatory - Left Pulses Dorsalis Pedis Femoral Radial 3 3 Scale (0,1,2,3,4,d) Circulatory - Lower Extremities Color Lower Right Color Lower Left Normal Normal Neurological State Oriented to time-place- Alert Moves all extremities person Respiration - General Respiration Rate SpO2 (%) O2 (lpm) (B/min) 21 96 2 Final Case Assessment Cardiovascular HR Rhythm NIBP Chest Pain 66 sr 149/67 0 Edema Present Skin color Skin None Normal Warm Dry Circulatory - Right Pulses Dorsalis Pedis Femoral Radial 3 3 3 Scale (0,1,2,3,4,d) Circulatory - Left Pulses Dorsalis Pedis Femoral Radial 3 3 Scale (0,1,2,3,4,d) Circulatory - Lower Extremities Color Lower Right Color Lower Left Normal Normal Neurological State Oriented to time-place- Alert Moves all extremities person Respiration - General Respiration Rate SpO2 (%) O2 (lpm) (B/min) 17 95 2 Chronological Log Time Study Chronological Log 1500 units/hr HEPARIN DRIP STOPPED by Prisca Rivera , ALETAN. Pump/Drip Flow = 0 ml/hr using [Solution 9:09:22 Name]. Ordered by Miguel Shukla 9:19:56 Patient arrived via Bed. 9:19:57 Patient Name, D.O.B, / Armband Verified By R.N. 9:19:58 Consent signed by the physician and the patient and verified by the Industrial Economics Teacher staff. 9:19:58 Pre-op and post- op instructions given; patient acknowledges understanding of instructions. 9:19:59 Verbal Stimulation=2 Physical Stimulation=2 Airway=2 Respiration=2 TOTAL=8. (0=absent, 1=li mited, 2=present) 9:20:00 Anesthesia at bedside. Assumes care of patient. 9:20:00 Presedation assessment performed by Industrial Economics Teacher RN. 9:20:02 Allens test performed on the right radial and ulnar artery. 9:20:04 Patient has been NPO for More than 6Hrs. 9:20:04 Skin Breakdown- none per patient. 9:20:05 Patient Warmer Placed on the Table. 9:20:06 Darian [employer]ences Protected 9:20:08 A # 20 IV was noted in the Forearm (right). Grade = 0 IV Solutions given in lab by Mena Kelley, RN in Left Hand via Peripheral IV. Pump/Drip Flow = 20 ml/hr using NaCl 9:20:10 .9. Ordered by Miguel Shukla 9:20:11 History and physical on the chart or being dictated. 9:22:38 A # 20 IV was noted in the Wrist (left). Grade = 0 25 mcg/min NITROGLYCERIN DRIP given in lab by Mena Kelley, RN via Peripheral IV. Pump/Drip F low = 7.5 ml/hr 9:23:12 using D5W with a concentration of 50 mg in 250 ml. Ordered by Miguel Shukla IV Solutions given in lab by Mena Kelley, RN in Left Wrist via Peripheral IV. Pump/Drip Flow using NaCl .9. Ordered 9:23:41 by Miguel Shukla Vitals capture started with the following parameters, Patient=Adult, Interval=5 min, Initial Pre epszs=929 mmHg, 9:28:49 Deflation Rate=5 mmHg, Cuff placed on Right Ankle Assessment: Initial Case, HR=74 BPM, Rhythm=sr, NNQJ=015/73 mmhg, Chest Pain=0, Edema=None, [place] r=Normal, Skin = Warm, Dry Right Pulses: Ru Ped=3, Femoral=3, Radial=3 Left Pulses: Ru Ped=3, Femoral=3 9:29:32 Lower Right Extremities: Color=Normal Lower Left Extremities: Color=Normal Neurological: State=Alert, Ox3, [place] Respiration: Resp=21 B/min, SpO2=96 %, O2=2 lpm 9:29:55 HR=77 bpm, OZYE=524/73 mmhg, SpO2=96 %, Resp=22 B/min, Pain=0, Noel=10, Damico=2 9:30:11 Reference ECG taken 9:34:35 HR=74 bpm, NHRM=295/62 mmhg, SpO2=92.0 %, Resp=21 B/min, Pain=0, Noel=10, Damico=2 9:38:07 Right Radial and groin(s) prepped with 2% chlorhexidine, and draped after a 3 min. waiting t miryam. 9:39:30 HR=74 bpm, TZVM=939/64 mmhg, SpO2=93.0 %, Resp=24 B/min, Pain=0, Noel=10, Damico=2 9:42:12 Pressure channel 1 zeroed. 9:42:35 MD paged 9:44:31 HR=74 bpm, ANKC=462/63 mmhg, SpO2=93.0 %, Resp=21 B/min, Pain=0, Noel=10, Damico=2 9:45:10 MD arrived. 9:45:51 Verbal Stimulation=2 Physical Stimulation=2 Airway=2 Respiration=2 TOTAL=8. (0=absent, 1=sanchez ited, 2=present) 9:49:32 HR=72 bpm, FWYR=316/68 mmhg, SpO2=93.0 %, Resp=24 B/min, Pain=0, Noel=10, Damico=2 Time Out. Correct patient, correct procedure, correct physician, power injector not loaded with contrast with surgical 9:49:37 team present. Time Out Concurred by MD and individual staff in procedure. 9:49:52 Case Start 9:49:58 0.5 mg VERSED given in lab by Mena Kelley RN in Left Wrist via Peripheral IV. Ordered b Miguel Weldon 9:50:11 25 mcg FENTANYL given in lab by Mena Kelley, YESSENIA in Left Wrist via Peripheral IV. Ordered by Miguel Shukla 3 mL 1% XYLOCAINE given in lab by Miguel Shukla in Right Radial via Subcutaneous. Ordered by Vazquez 9:51:12 Miguel Caldwell 9:51:55 Access site was right Radial Artery. 5 mL (Bolus) RADIAL COCKTAIL given in lab by Miguel Shukla via Radial.. Ordered by Miguel Regalado Ntg 9:52:09 200mcg Verapamil 2.5mg Heparin 4500U. A JR 4.0 INFINITI CATHETER FR 5 was advanced over a wire. OMNIPAQUE, 350 MG, 150ML 150ML was use d for 9:53:07 injections. 9:54:34 HR=78 bpm, EIHG=316/46 mmhg, SpO2=93.0 %, Resp=21 B/min, Pain=0, Noel=10, Damico=2 Recorded Pressure: LV, HR=71, Condition=Condition 1 9:55:06 (Left Ventricle) LV 131/-13/5 Recorded Pressure: LV, Ao, HR=72, Condition=Condition 1 9:55:23 (Left Ventricle) LV 125/-18/0, (Aorta) Ao 112/48/71 Recorded Pressure: Ao, HR=72, Condition=Condition 1 9:56:10 (Aorta) Ao 112/49/74 After removing the current catheter a JL 4.0 INFINITI CATHETER FR 5 was advanced over a WIRE, EX CHANGE 260CM 9:58:14 3MMJ 260CM. 9:59:26 HR=75 bpm, JQAG=396/63 mmhg, SpO2=96.0 %, Resp=17 B/min, Pain=0, Noel=10, Damico=2 10:02:16 The LCA was injected and visualized at various angles. OMNIPAQUE, 350 MG, 150ML 150ML used . 10:04:30 HR=75 bpm, LYNG=451/57 mmhg, SpO2=94 %, Resp=21 B/min, Pain=0, Noel=10, Damico=2 After removing the current catheter a MPA-2 INFINITI CATHETER FR 5 was advanced over a WIRE, EX CHANGE 260CM 10:08:02 3MMJ 260CM. 10:09:35 HR=72 bpm, ZRRW=185/47 mmhg, SpO2=93.0 %, Resp=19 B/min, Pain=0, Noel=10, Damico=2 After removing the current catheter a AL 1 INFINITI CATHETER FR 5 was advanced over a WIRE, EXC HANGE 260CM 10:12:00 3MMJ 260CM. 10:14:32 HR=71 bpm, VSTY=020/60 mmhg, SpO2=93.0 %, Resp=20 B/min, Pain=0, Noel=10, Damico=2 After removing the current catheter a AR MOD INFINITI CATHETER FR 5 was advanced over a WIRE, E XCHANGE 260CM 10:17:13 3MMJ 260CM. 10:19:33 HR=71 bpm, IDWD=261/64 mmhg, SpO2=93.0 %, Resp=19 B/min, Pain=0, Noel=10, Damico=2 After removing the current catheter a PIGTAIL STR. INFINITI CATHETER FR 5 was advanced over a W LISANDRO, EXCHANGE 10:20:48 260CM 3MMJ 260CM. 10:24:32 HR=67 bpm, NBGO=284/55 mmhg, SpO2=94.0 %, Resp=23 B/min, Pain=0, Noel=10, Damico=2 10:25:16 The AO Arch (A1) was injected at 12 cc/sec for a total of 36. OMNIPAQUE, 350 MG, 150ML 150M L used. 10:26:22 A WIRE, EXCHANGE 260CM 3MMJ 260CM was inserted via Radial (right). 10:26:37 Catheter(s) removed without difficulty 10:29:35 HR=71 bpm, KIBW=442/57 mmhg, SpO2=94.0 %, Resp=20 B/min, Pain=0, Noel=10, Damico=2 A MPA-2 INFINITI CATHETER FR 5 was advanced over a wire. OMNIPAQUE, 350 MG, 150ML 150ML was use d for 10:32:02 injections. 10:34:32 HR=66 bpm, RDMF=224/93 mmhg, SpO2=93.0 %, Resp=25 B/min, Pain=0, Noel=10, Damico=2 5 mL 1% XYLOCAINE given in lab by Miguel Shukla in Right Groin via Subcutaneous. Ordered by Vazquez 10:37:19 Miguel Yadav. deacreased to 15 mcg/min NITROGLYCERIN DRIP given in lab by Mena Kelley RN in Left Wrist v ia Peripheral IV. 10:39:28 Pump/Drip Flow = 4.5 ml/hr using D5W with a concentration of 50 mg in 250 ml. Ordered by Miguel Arechiga 10:39:33 HR=66 bpm, LMVS=325/50 mmhg, SpO2=95.0 %, Resp=11 B/min, Pain=0, Noel=10, Damico=2 10:42:45 Access site was Right Femoral Artery. A INTRODUCER SET, MICROPUNCTURE, STIFFENED FR 5 was advanced into the Fem Art (right) using the ::16 Percutaneous technique. A SHEATH, FR5 TERUMO (10CM) FR 5 was exchanged in the Fem Art (right). This was necessary in or anuja to 10:43:28 accomodate a larger catheter. decreased to 5 mcg/min NITROGLYCERIN DRIP given in lab by Mena Kelley, YESSENIA in Left Wrist via Peripheral IV. 10:44:30 Pump/Drip Flow = 1.5 ml/hr using D5W with a concentration of 50 mg in 250 ml. Ordered by Miguel Arechiga 10:45:02 An injection in the Fem Art (right) was made through the SHEATH, FR5 TERUMO (10CM) FR 5. 10:45:03 HR=59 bpm, OQZK=198/53 mmhg, SpO2=95.0 %, Resp=15 B/min, Pain=0, Noel=10, Damico=2 A MPA-2 INFINITI CATHETER FR 5 was advanced over a wire. OMNIPAQUE, 350 MG, 150ML 150ML was use d for 10:45:23 injections. 10:49:35 HR=66 bpm, CWDG=151/67 mmhg, SpO2=95.0 %, Resp=18 B/min, Pain=0, Noel=10, Damico=2 10:49:50 The SVG-RCA was injected and visualized at various angles. OMNIPAQUE, 350 MG, 150ML 150ML u sed. 10:51:40 A WIRE, EXCHANGE 260CM 3MMJ 260CM was inserted via Fem Art (right). 10:51:59 Catheter(s) removed without difficulty 10:52:36 Activated Clotting Time Drawn Assessment: Final Case, HR=66 BPM, Rhythm=sr, CROQ=346/67 mmhg, Chest Pain=0, Edema=None, Color =Normal, Skin = Warm, Dry Right Pulses: Ru Ped=3, Femoral=3, Radial=3 Left Pulses: Ru Ped=3, Femoral=3 10:52:42 Lower Right Extremities: Color=Normal Lower Left Extremities: Color=Normal Neurological: State=Alert, Ox3, [place] Respiration: Resp=17 B/min, SpO2=95 %, O2=2 lpm 10:53:14 Case End 10:53:20 25 mcg FENTANYL given in lab by Mena Kelley RN in Left Wrist via Peripheral IV. Order ed by Miguel Shukla. Radial Compression Device Used. 12 mLs of air placed in BAND, RADIAL COMPRESSION TR SHORT 24 2 4CM. Affected 10:53:26 hand 96 % O2 saturation. 10:54:22 No case complications noted. 10:54:23 Cine recording checked. 10:54:36 HR=66 bpm, FCCW=251/67 mmhg, SpO2=95.0 %, Resp=20 B/min, Pain=0, Neol=10, Damico=2 10:55:50 ACT (Normal Range 90-180) = 175 10:56:16 Bedside Report will be given. 10:57:06 A Left Heart Cath was performed. 10:57:43 Sheath removed; pressure applied to access site. 10:59:35 HR=59 bpm, FZJF=661/62 mmhg, SpO2=93.0 %, Resp=17 B/min, Pain=0, Noel=10, Damico=2 0 units/hr NITROGLYCERN DRIP STOPPED given in lab by Mena Kelley, YESSENIA. Pump/Drip Flow = 0 m l/hr using 11:00:18 [Solution Name]. Ordered by Miguel Shukla 11:04:34 HR=65 bpm, NHYP=882/76 mmhg, SpO2=94.0 %, Resp=14 B/min, Pain=0, Noel=10, Damico=2 11:09:37 HR=67 bpm, TGRQ=171/72 mmhg, SpO2=95.0 %, Resp=18 B/min, Pain=0, Noel=10, Damico=2 11:17:06 Patient moved to [facility] End Study - Contrast Media Used In Study Contrast Total Opened (mL) Total Used (mL) Total Wasted (mL) Omnipaque 140 140 0 End Study - Maximum Contrast Load Max Contrast Load (mL) 472.9 End Study - Radiation Exposure Fluoro Time (minutes) 18.5 End Study - Sheaths Sheaths Pulled By Sheath Hold Time (min) Elmer Lopez 15 End Study - Patient Disposition Complications Transferred To Telemetry Bed
[2017-09-13] MEDS ORDERED: MISC INFORMATION XX ONE ×2 (11:15)
--- NOTE | 2017-09-13 11:58 | MA ---
cc: Miguel Shukla DO DATE: 09/13/2017 PROCEDURE: Left heart catheterization, coronary angiogram, aortic root shot, moderate sedation 65 minutes, bypass graft angiogram. PREPROCEDURE DIAGNOSIS: NSTEMI, chest pain. POSTPROCEDURE DIAGNOSIS: Distal left circumflex occlusion in an overall small vessel (around 1 mm), coronary artery bypass graft x 1 (1/ patent). MEDICATIONS: Versed 0.5 mg, fentanyl 50 mcg, heparin 4500 units, nitro 200 mcg, verapamil 2.5 mg. CONTRAST USED: 140 mL. FLUOROSCOPY: 18.5 minutes. MODERATE SEDATION: 65 minutes. ESTIMATED BLOOD LOSS: 10 mL. PROCEDURAL SUMMARY: Mena Oro is a pleasant 61-year-old female who sees my partner, Dr. Menendez in the [place] office and presented to [facility] due to chest pain. She was found to have an elevated troponin and because of this, she was recommended cardiac catheterization. The risks, benefits and alternatives were explained to her and she consented as such. She was brought to the lab and prepped in the usual sterile fashion. The right radial artery was accessed using a modified Seldinger technique and placement of a 5/6 Mexican slender sheath. This was easily aspirated and flushed. A JR4 was advanced over a J-wire to the ascending aorta and across the aortic valve for measurement of left ventricular pressure. This is was pulled back across the aortic valve showing no significant gradient of aortic stenosis. A JR4 was attempted to access her saphenous vein graft to the PDA, but was unable to. This was exchanged out for a JL3.5, which was used to perform selective angiography of the left coronary artery system. I then attempted to engage the saphenous vein graft to the PDA with a multipurpose AL1 and an AR mod but was unable to. At that time, a pigtail was placed and an aortic root shot was done which showed a high takeoff of the saphenous vein graft to the PDA. I attempted one more time with a multipurpose, but due to the angulation of her aortic arch was unable to access it. At that time, the radial access was aborted and femoral access was gained with a 5-Mexican slender sheath. A multipurpose catheter was then used for selective angiography of the saphenous vein graft to the PDA. This was removed. A radial band was placed over the arteriotomy site for hemostasis. The femoral sheath was removed with pressure held for hemostasis. The patient left the quality lab technician cardiovascularly stable. FINDINGS: Left main normal size vessel with 20% ostial disease. It bifurcates into an LAD and circumflex. LAD is a normal size vessel with 10-20% disease throughout the proximal portion with a 30% long smooth lesion throughout the mid portion. It gives off multiple small diagonals with no significant disease. Left circumflex is a normal size vessel. It gives off 2 obtuse marginals with no significant disease. The second obtuse marginal splits into a superior and inferior branch. After the takeoff of the obtuse marginal, the left circumflex appears to be 100% occluded and a small vessel of around 1-1.5 mm. The RCA is 100% occluded, known from before. The saphenous vein graft to PDA is patent which fills both antegrade and retrograde throughout a large RCA system. LVEDP 10. IMPRESSIONS: 1. Non-ST elevation myocardial infarction. 2. Multivessel coronary artery disease with a history of coronary artery bypass graft x 1 (06/21 graft patent). RECOMMENDATIONS: 1. Ms. Oro presented with an NSTEMI and was found to have distal occlusion of her left circumflex and an overall small vessel. Anatomy from cardiac catheterization today was compared to her previous cardiac catheterization from a year ago and the only significant change is a distal portion of the left circumflex being occluded, although the problem is that this vessel was around 1 to 1.5 mm. 2. She is hemodynamically and electrically stable without chest pain. We will plan on continuing medical management. 3. Nitroglycerin has been weaned off at this time. 4. Heparin drip can be stopped. 5. She will be restarted on her Lasix. 6. Spironolactone will be held until tomorrow when her kidney function will be reevaluated. 7. Upon discharge, she will followup with Dr. Menendez. Thank you for allowing me to see Mena Oro. If there are any questions, please do not hesitate to call. Miguel Shukla DO VGP/DL , 11:21 AM , 11:57 AM
[2017-09-13] MEDS ORDERED: IOHEXOL 350 MG/ML 100 ML BTL (for Cath Lab) OTHER ONE (13:34)
[2017-09-13] MEDS ORDERED: IOHEXOL 350 MG/ML 50 ML BTL (for Cath Lab) OTHER ONE (13:34)
--- NOTE | 2017-09-13 15:36 | HHI.PR ---
Subjective Remarks Denies cp No major overnight events Post cardiac cath Objective Vitals Vital Signs Date Time Temp Pulse Resp B/P (MAP) Pulse Ox O2 Delivery O2 Flow Rate FiO2 09/13/17 14:00 83 09/13/17 13:00 74 09/13/17 12:00 65 09/13/17 12:00 66 109/48 (68) 09/13/17 11:30 98.2 67 18 149/61 (90) 98 09/13/17 11:30 67 09/13/17 09:00 78 09/13/17 08:00 98.5 78 19 134/60 (84) 97 09/13/17 08:00 81 09/13/17 07:43 95 21 09/13/17 07:00 80 09/13/17 06:42 66 09/13/17 05:25 68 09/13/17 04:20 98.4 74 19 131/60 (83) 93 09/13/17 04:05 69 09/13/17 03:37 66 09/13/17 02:17 68 09/13/17 01:14 64 09/13/17 00:18 98.6 81 17 140/64 (89) 95 09/13/17 00:18 71 09/12/17 23:36 80 09/12/17 22:35 74 09/12/17 21:00 76 09/12/17 20:20 98.9 81 18 146/67 (93) 93 09/12/17 20:15 82 09/12/17 19:00 80 09/12/17 17:26 26 09/12/17 17:21 76 141/63 09/12/17 16:00 99.5 74 27 142/63 (89) 85 09/12/17 16:00 74 09/12/17 16:00 74 I/O 09/12/17 09/12/17 09/12/17 09/13/17 09/13/17 09/13/17 07:00 15:00 23:00 07:00 15:00 23:00 Intake Total 120 ml 920 ml 480 ml 200 ml Output Total 900 ml 1050 ml Balance 120 ml 20 ml -570 ml 200 ml Intake Oral 120 ml 480 ml 480 ml IV Total 440 ml 200 ml Output Urine Total 900 ml 1050 ml # Voids 3 # Bowel Movements 0 0 Result Diagram: 09/13/1734909/13/17349 Objective Remarks GENERAL: This is a well-nourished, well-developed patient,nad SKIN: No rashes, ecchymoses or lesions. Cool and dry. HEAD: Atraumatic. Normocephalic. No temporal or scalp tenderness. EYES: Pupils equal round and reactive. Extraocular motions intact. No scleral icterus. No injection or drainage. ENT: Nose without bleeding, purulent drainage or septal hematoma. Throat without erythema, tonsillar hypertrophy or exudate. Uvula midline. Airway patent. NECK: Trachea midline. No JVD or lymphadenopathy. Supple, nontender, no meningeal signs. CARDIOVASCULAR: Regular rate and rhythm without murmurs, gallops, or rubs. RESPIRATORY: Clear to auscultation. Breath sounds equal bilaterally. No wheezes , rales, or rhonchi. GASTROINTESTINAL: Obese abdomen, soft, non-tender, nondistended. No hepato- splenomegaly, or palpable masses. No guarding. MUSCULOSKELETAL: Extremities without clubbing, cyanosis, or edema. No joint tenderness, effusion, or edema noted. No calf tenderness. Negative Homans sign bilaterally. Tenderness to palpation of substernal region. NEUROLOGICAL: Awake and alert. Cranial nerves II through XII intact. Motor and sensory grossly within normal limits. Five out of 5 muscle strength in all muscle groups. Normal speech. Procedures sp cardiac cathetrization A/P Problem List: (1) NSTEMI (non-ST elevated myocardial infarction) ICD Code: I21.4 - Non-ST elevation (NSTEMI) myocardial infarction Status: Acute Plan: EKG reviewed by me showed sinus rhythm at a ventricular rate of 77 bpm, no ST-T changes suggestive of active ischemia. Troponin elevated at 3.38. ED physician started IV heparin drip, continue. Trend cardiac enzymes Continue aspirin, beta-matthew, statin, Plavix Continue nitroglycerin drip. Cardiology consulted ER physician discussed the case with with Dr. Frazier. 09/12 troponins peaked at 13.8 on 09/11, now down trending. Continue to monitor cardiac enzymes. For cardiac cath in a.m. please notify cardiology if the patient has continuous chest pain which is not subsiding with medications. 09/13 sp cardiac catheterization. Most likely due to distal LCx occlusion, overall small vessel (~1mm). Fu cardiology recommendations. Heparin discontinued. Dc pending cardiology clearance. (2) TIMOTHY (acute kidney injury) ICD Code: N17.9 - Acute kidney failure, unspecified Plan: Patient has history of CKD stage III, however creatinine on admission is 1.60. Likely prerenal. Will place on gentle IV fluids, monitor BUN and creatinine, strict I's and O's, avoid nephrotoxins. Hold spironolactone and Lasix. 09/13 Creatinine trending down. Continue to hold diuretics for now. Monitor BUN/ Creatinine. (3) Transaminitis ICD Code: R74.0 - Nonspecific elevation of levels of transaminase and lactic acid dehydrogenase [LDH] Status: Acute Plan: Mild elevation of AST. Monitor LFTs. LFT's trending down from 54 to 40. (4) Type 2 diabetes mellitus ICD Code: E11.9 - Type 2 diabetes mellitus without complications Status: Acute Plan: Blood sugars are severely elevated in the mid 200 range Hold metformin. Continue home insulin. The patient currently on basal bolus therapy with insulin Levemir and insulin NovoLog. Placed on SSI with insulin NovoLog. 09/12 blood sugar still elevated in the 200s. Continue insulin Levemir. 09/13 blood sugars better controlled. Continue insulin Levemir 60 units SQ BID. (5) COPD (chronic obstructive pulmonary disease) ICD Code: J44.9 - Chronic obstructive pulmonary disease, unspecified Plan: Patient is status post 1 dose of IV Solu-Medrol in the ED. 09/12 COPD seems to be stable. Patient is satting well on room air. Continue supplemental oxygen to keep oxygen saturation more than 92%. DuoNeb's as needed. (6) Uncontrolled hypertension ICD Code: I10 - Essential (primary) hypertension Plan: The patient has severely elevated blood pressure. Resume home antihypertensive medications. Labetalol as needed for systolic blood pressure more than 160. 09/12 blood pressure much improved after metoprolol dose increased to 100 minutes p.o. twice daily. Continue nitroglycerin IV drip. 09/13 Heparin drip discontinued. (7) Diabetic neuropathy ICD Code: E11.40 - Type 2 diabetes mellitus with diabetic neuropathy, unspecified Plan: Seems to be stable. Continue gabapentin. Assessment and Plan DVT prophylaxis: On heparin drip. GI prophylaxis: On PPI. Discharge Planning poss dc in am. Problem Qualifiers (1) COPD (chronic obstructive pulmonary disease): (2) Diabetic neuropathy: Qualified Codes: E11.42 - Type 2 diabetes mellitus with diabetic polyneuropathy Agustin Santos MD Sep 13, 2017 15:36
--- NOTE | 2017-09-13 17:59 | PD.CARD.PN ---
Subjective Subjective Remarks No events overnight Post-cath Nitro weaned off, no chest pain Objective Medications Current Medications Medications (Trade) Dose Ordered Sig/Tree Route Start Time Stop Time Status Last Admin Nitroglycerin/ Dextrose 250 ml @ 1.5 mls/hr TITRATE PRN IV 09/11/17 16:45 09/12/17 17:21 (Zyloprim) 300 mg HS PO 09/11/17 21:00 09/12/17 20:23 (Xanax) 1 mg Q6H PRN PO 09/11/17 18:45 (Cymbalta Dr) 60 mg HS PO 09/11/17 21:00 09/12/17 20:31 (Lasix) 40 mg DAILY PO 09/12/17 09:00 Future hold 09/12/17 08:39 (Neurontin) 800 mg DAILY PO 09/12/17 09:00 09/13/17 08:46 (NovoLOG INJ) 25 units TID SQ 09/12/17 09:00 09/13/17 17:31 (Levemir Inj) 60 units BID SQ 09/11/17 21:00 09/13/17 08:45 (Percocet 10-325 Mg) 1 tab Q4H PRN PO 09/11/17 18:45 09/13/17 16:07 (Requip) 2 mg TID PO 09/12/17 09:00 09/13/17 17:31 (Aldactone) 50 mg DAILY PO 09/12/17 09:00 Future Hold 09/12/17 08:39 (Protonix) 20 mg BID PO 09/11/17 21:00 09/13/17 08:46 (NS Flush) 2 ml BID IV FLUSH 09/11/17 21:00 09/12/17 08:34 (NS Flush) 2 ml UNSCH PRN IV FLUSH 09/11/17 18:45 (Ecotrin Ec) 325 mg DAILY PO 09/12/17 09:00 09/13/17 08:46 (Plavix) 75 mg DAILY PO 09/11/17 18:45 09/13/17 08:47 (Morphine Inj) 2 mg Q30M PRN IV PUSH 09/11/17 18:45 09/12/17 08:35 (Tylenol) 650 mg Q6H PRN PO 3/24/18 18:45 09/12/17 03:40 (Colace) 100 mg BID PRN PO 09/11/17 18:45 (Zofran Inj) 4 mg Q6H PRN IV PUSH 09/11/17 18:45 (D50w (Vial) Inj) 50 ml UNSCH PRN IV PUSH 09/11/17 19:00 (Glucagon Inj) 1 mg UNSCH PRN OTHER 09/11/17 19:00 (NovoLOG SUPPLEMENTAL SCALE) 1 ACHS SLIDING SCALE SQ 09/11/17 21:00 09/13/17 08:00 (Creon 12-38-60) 3 cap TIDPC PO 09/12/17 09:30 09/13/17 17:35 Miscellaneous Information Patient in critical care unit? Ass... [id number] .XX 09/12/17 04:30 09/12/17 04:30 (Chlorhexidine 2% Cloth) 3 pack DAILY@04 TOPICAL 09/13/17 04:00 09/17/17 04:01 (Chlorhexidine 2% Cloth) 3 pack UNSCH PRN TOPICAL 09/12/17 04:30 09/17/17 04:22 (Lipitor) 20 mg HS PO 09/12/17 21:00 09/12/17 20:23 (Lopressor) 100 mg BID PO 09/12/17 10:00 09/13/17 08:46 Potassium Chloride 100 ml @ 50 mls/hr Q2H PRN IV 09/12/17 10:00 Potassium Chloride 100 ml @ 50 mls/hr Q2H PRN IV 09/12/17 10:00 (K-Lyte Cl Eff) 50 meq UNSCH PRN PO 09/12/17 10:00 Potassium Chloride 100 ml @ 25 mls/hr UNSCH PRN IV 09/12/17 10:00 Potassium Chloride 100 ml @ 50 mls/hr Q2H PRN IV 09/12/17 10:00 Magnesium Sulfate 4 gm/Sodium Chloride 100 ml @ 50 mls/hr UNSCH PRN IV 09/12/17 10:00 (Mag-Ox) 800 mg UNSCH PRN PO 09/12/17 10:00 Magnesium Sulfate 2 gm/Sodium Chloride 100 ml @ 50 mls/hr UNSCH PRN IV 09/12/17 10:00 (K-Phos) 2,000 mg Q4H PRN PO 09/12/17 10:00 Sodium Phosphate 30 mmol/Sodium Chloride 250 ml @ 42 mls/hr UNSCH PRN IV 09/12/17 10:00 (K-Phos) 2,000 mg UNSCH PRN PO/TUBE 09/12/17 10:00 Potassium Phosphate 30 mmol/ Sodium Chloride 260 ml @ 42 mls/hr UNSCH PRN IV 09/12/17 10:00 Vital Signs / I&O Vital Signs Date Time Temp Pulse Resp B/P (MAP) Pulse Ox O2 Delivery O2 Flow Rate FiO2 09/13/17 17:31 18 09/13/17 17:00 74 09/13/17 16:00 79 09/13/17 16:00 70 19 137/59 (85) 96 09/13/17 15:00 77 09/13/17 14:00 83 09/13/17 13:00 74 09/13/17 12:00 65 09/13/17 12:00 66 109/48 (68) 09/13/17 11:30 98.2 67 18 149/61 (90) 98 09/13/17 11:30 67 09/13/17 09:00 78 09/13/17 08:00 98.5 78 19 134/60 (84) 97 09/13/17 08:00 81 09/13/17 07:43 95 21 09/13/17 07:00 80 09/13/17 06:42 66 09/13/17 05:25 68 09/13/17 04:20 98.4 74 19 131/60 (83) 93 09/13/17 04:05 69 09/13/17 03:37 66 09/13/17 02:17 68 09/13/17 01:14 64 09/13/17 00:18 98.6 81 17 140/64 (89) 95 09/13/17 00:18 71 09/12/17 23:36 80 09/12/17 22:35 74 09/12/17 21:00 76 09/12/17 20:20 98.9 81 18 146/67 (93) 93 09/12/17 20:15 82 09/12/17 19:00 80 I/O 09/12/17 09/12/17 09/12/17 09/13/17 09/13/17 09/13/17 07:00 15:00 23:00 07:00 15:00 23:00 Intake Total 120 ml 920 ml 480 ml 200 ml 720 ml Output Total 900 ml 1050 ml 400 ml Balance 120 ml 20 ml -570 ml 200 ml 320 ml Intake Oral 120 ml 480 ml 480 ml 720 ml IV Total 440 ml 200 ml Output Urine Total 900 ml 1050 ml 400 ml # Voids 3 # Bowel Movements 0 0 Physical Exam GENERAL: NAD, AAOx3 SKIN: Warm and dry. HEAD: Atraumatic. Normocephalic. EYES: Pupils equal and round. No scleral icterus. No injection or drainage. ENT: No nasal bleeding or discharge. Mucous membranes pink and moist. NECK: Trachea midline. No JVD. CARDIOVASCULAR: Regular rate and rhythm. RESPIRATORY: No accessory muscle use. Clear to auscultation. Breath sounds equal bilaterally. GASTROINTESTINAL: Abdomen soft, obese, non-tender, nondistended. Hepatic and splenic margins not palpable. MUSCULOSKELETAL: Extremities without clubbing, cyanosis, or edema. No obvious deformities. NEUROLOGICAL: Awake and alert. No obvious cranial nerve deficits. Motor grossly within normal limits. Five out of 5 muscle strength in the arms and legs. Normal speech. PSYCHIATRIC: Appropriate mood and affect; insight and judgment normal. Laboratory Laboratory Tests Test 09/13/17 00:51 09/13/17 03:50 09/13/17 08:55 Activated Partial Thromboplast Time 37.5 SEC 39.4 SEC White Blood Count 9.9 TH/MM3 Red Blood Count 3.43 MIL/MM3 Hemoglobin 11.1 GM/DL Hematocrit 33.0 % Mean Corpuscular Volume 96.2 FL Mean Corpuscular Hemoglobin 32.5 PG Mean Corpuscular Hemoglobin Concent 33.7 % Red Cell Distribution Width 14.4 % Platelet Count 297 TH/MM3 Mean Platelet Volume 8.4 FL Neutrophils (%) (Auto) 63.4 % Lymphocytes (%) (Auto) 25.7 % Monocytes (%) (Auto) 6.6 % Eosinophils (%) (Auto) 3.6 % Basophils (%) (Auto) 0.7 % Neutrophils # (Auto) 6.3 TH/MM3 Lymphocytes # (Auto) 2.6 TH/MM3 Monocytes # (Auto) 0.7 TH/MM3 Eosinophils # (Auto) 0.4 TH/MM3 Basophils # (Auto) 0.1 TH/MM3 CBC Comment DIFF FINAL Differential Comment Blood Urea Nitrogen 24 MG/DL Creatinine 1.24 MG/DL Random Glucose 164 MG/DL Total Protein 7.4 GM/DL Albumin 3.3 GM/DL Calcium Level 9.4 MG/DL Phosphorus Level 3.7 MG/DL Magnesium Level 2.2 MG/DL Alkaline Phosphatase 103 U/L Aspartate Amino Transf (AST/SGOT) 40 U/L Alanine Aminotransferase (ALT/SGPT) 28 U/L Total Bilirubin 0.5 MG/DL Sodium Level 138 MEQ/L Potassium Level 3.8 MEQ/L Chloride Level 103 MEQ/L Carbon Dioxide Level 25.6 MEQ/L Anion Gap 9 MEQ/L Estimat Glomerular Filtration Rate 44 ML/MIN Assessment and Plan Problem List: (1) NSTEMI (non-ST elevated myocardial infarction) ICD Codes: I21.4 - Non-ST elevation (NSTEMI) myocardial infarction (2) CAD (coronary artery disease), autologous vein bypass graft ICD Codes: I25.810 - Atherosclerosis of coronary artery bypass graft(s) without angina pectoris Permanent Comment: SVG to RCA; stent in LAD Last Edited By: Geo Simmons MD on Sep 12, 2017 08:57 Assessment and Plan 1) NSTEMI Most likely due to distal LCx occlusion, overall small vessel (~1mm) As size of vessel is small, she's hemodynamically/electrically stable without chest pain, will plan to treat medically 2) Heparin drip stopped 3) Restart Lasix Plan to restart Spironolactone if creatinine stable 4) Upon discharge, will followup with Miguel Clinton DO Sep 13, 2017 17:59
[2017-09-13] MEDS: ATORVASTATIN 20 MG TAB PO SCH (21:52)
[2017-09-13] MEDS: ALLOPURINOL 300 MG TAB PO SCH (21:52)
[2017-09-13] MEDS: DULoxetine HCl DR 60 MG CAP PO SCH (21:53)
[2017-09-14] VITALS (14 sets, daily range): BP systolic 124–142; BP diastolic 56–65; PULSE 64–80; RESP 16–19; TEMP 97.6–98.2; O2SAT 93–96
[2017-09-14] MEDS: CHLORHEXIDINE GLUCONATE 2 % 1 PACK (2 CLOTHS)(taper/protocol) TOPICAL SCH (04:00)
[2017-09-14 05:19] LABS: BICARBONATE 24.2 MEQ/L (21.0-32.0); CALCIUM 9.1 MG/DL (8.5-10.1); CREATININE 1.35 MG/DL (0.50-1.00)
[2017-09-14 05:39] LABS: AUTOMATED NEUTROPHIL # 6.2 TH/MM3 (1.8-7.7); BASOPHIL % 0.5 % (0.0-2.0); EOSINOPHIL # 0.4 TH/MM3 (0-0.4); EOSINOPHIL % 4.3 % (0.0-4.0); HEMATOCRIT 33.3 % (35.0-46.0); HEMOGLOBIN 11.3 GM/DL (11.6-15.3); LYMPH % 26.7 % (9.0-44.0); LYMPHOCYTE # 2.7 TH/MM3 (1.0-4.8); MEAN CELL VOLUME 96.2 FL (80.0-100.0); MEAN CORPUSCULAR HEMOGLOBIN 32.6 PG (27.0-34.0); MEAN CORPUSCULAR HGB CONC 33.9 % (32.0-36.0); MEAN PLATELET VOLUME 8.2 FL (7.0-11.0); MONO % 7.3 % (0.0-8.0); MONOCYTE # 0.7 TH/MM3 (0-0.9); NEUT % 61.2 % (16.0-70.0); PLATELET COUNT 299 TH/MM3 (150-450); RED BLOOD COUNT 3.47 MIL/MM3 (4.00-5.30); RED CELL DISTRIBUTION WIDTH 14.2 % (11.6-17.2); WHITE BLOOD COUNT 10.1 TH/MM3 (4.0-11.0)
[2017-09-14] MEDS: INSULIN ASPART SUPPLEMENTAL SCALE SQ SCH (08:00)
[2017-09-14] MEDS: INSULIN ASPART 1,000 UNITS/10 ML VIAL SQ SCH (08:45)
[2017-09-14] MEDS: GABAPENTIN 400 MG CAP PO SCH (08:46)
[2017-09-14] MEDS: ASPIRIN EC 325 MG TABEC PO SCH (08:46)
[2017-09-14] MEDS: CLOPIDOGREL 75 MG TAB PO SCH (08:46)
[2017-09-14] MEDS: INSULIN DETEMIR 100 UNITS/ML VIAL SQ SCH (08:46)
[2017-09-14] MEDS: PANTOPRAZOLE SOD 20 MG DELAYED RELEASE TAB PO SCH (08:46)
[2017-09-14] MEDS: METOPROLOL TARTRATE 50 MG TAB PO SCH (08:46)
[2017-09-14] MEDS: LIPASE/PROTEASE/AMYLASE (12,000/38,000/60,000) CAP PO SCH (08:47)
[2017-09-14] MEDS: SODIUM CHLORIDE 0.9% FLUSH 10 ML FLUSH IV FLUSH SCH (08:47)
[2017-09-14] MEDS: FUROSEMIDE 40 MG TAB PO SCH (08:47)
[2017-09-14] MEDS ORDERED: PLAV75TA29 PO (10:18)
[2017-09-14] MEDS ORDERED: METO-309 PO (10:18)
[2017-09-14] MEDS ORDERED: METF1000 PO (10:18)
--- NOTE | 2017-09-14 10:18 | HHI.DCPOC ---
Discharge Care Plan Diagnosis: (1) NSTEMI (non-ST elevated myocardial infarction) (2) Diabetic neuropathy (3) CAD (coronary artery disease), autologous vein bypass graft (4) Uncontrolled hypertension (5) TIMOTHY (acute kidney injury) (6) Transaminitis (7) Type 2 diabetes mellitus (8) COPD (chronic obstructive pulmonary disease) Goals to Promote Your Health * To prevent worsening of your condition and complications * To maintain your health at the optimal level Directions to Meet Your Goals Take your medications as prescribed Follow your dietary instruction Follow activity as directed Keep your appointments as scheduled Take your immunizations and boosters as scheduled If your symptoms worsen call your PCP, if no PCP go to Urgent Care Center or Emergency Room Smoking is Dangerous to Your Health. Avoid second hand smoke Call the 24-hour hour crisis hotline for domestic abuse at Agustin Santos MD Sep 14, 2017 10:18
--- NOTE | 2017-09-14 10:32 | HHI.DS ---
Discharge Summary Admission Date Sep 11, 2017 at 11:14 Discharge Date: Sep 14, 2017 Admitting Diagnosis ACS (1) NSTEMI (non-ST elevated myocardial infarction) ICD Code: I21.4 - Non-ST elevation (NSTEMI) myocardial infarction Diagnosis: Principal Status: Acute (2) Transaminitis ICD Code: R74.0 - Nonspecific elevation of levels of transaminase and lactic acid dehydrogenase [LDH] Diagnosis: Principal Status: Acute (3) Type 2 diabetes mellitus ICD Code: E11.9 - Type 2 diabetes mellitus without complications Diagnosis: Principal Status: Chronic (4) COPD (chronic obstructive pulmonary disease) ICD Code: J44.9 - Chronic obstructive pulmonary disease, unspecified Diagnosis: Principal Status: Chronic (5) Uncontrolled hypertension ICD Code: I10 - Essential (primary) hypertension Diagnosis: Principal Status: Resolved (6) Diabetic neuropathy ICD Code: E11.40 - Type 2 diabetes mellitus with diabetic neuropathy, unspecified Diagnosis: Secondary Status: Chronic (7) CKD stage 3 secondary to diabetes ICD Code: E11.22 - Type 2 diabetes mellitus with diabetic chronic kidney disease; N18.3 - Chronic kidney disease, stage 3 (moderate) Diagnosis: Principal Status: Chronic Procedures sp cardiac cathetrization Brief History - From Admission This is a 60-year-old female with past medical history of CAD status post CABG and stent placement who presents to [facility] complaining of chest pain described as heavy achy dull sensation on the substernal region radiating to the right side of her neck and the right arm. The patient states palpating the substernal region with exacerbate the pain, no alleviating factors were identified by the patient. The patient states that chest pain improved slightly with nitroglycerin and medications given in the emergency department. The patient was given nitroglycerin and aspirin in the [facility] emergency department and also started on IV heparin drip, then she was transferred to [facility]. The patient denies shortness of breath, complains of headache, denies abdominal pain, nausea, vomiting, diarrhea. The patient denies diaphoresis, palpitations. At the moment of this interview the patient still complaining of chest pain. CBC/BMP: 3/27/18 0348 09/14/17 0348 Significant Findings Laboratory Tests Test 09/11/17 11:35 09/11/17 20:02 09/12/17 01:09 09/12/17 07:30 Red Blood Count 3.71 MIL/MM3 (4.00-5.30) 3.49 MIL/MM3 (4.00-5.30) 3.59 MIL/MM3 (4.00-5.30) Activated Partial Thromboplast Time 23.6 SEC (24.3-30.1) Hematocrit 33.6 % (35.0-46.0) 34.3 % (35.0-46.0) Total Creatine Kinase 449 U/L (26-192) 381 U/L (26-192) 268 U/L (26-192) Creatine Kinase MB 30.0 NG/ML (0.5-3.6) 20.6 NG/ML (0.5-3.6) 12.1 NG/ML (0.5-3.6) Creatine Kinase MB % 6.7 % (0.0-4.0) 5.4 % (0.0-4.0) 4.5 % (0.0-4.0) Troponin I 13.80 NG/ML (0.02-0.05) 11.20 NG/ML (0.02-0.05) 7.94 NG/ML (0.02-0.05) Triglycerides Level 382 MG/DL (42-150) HDL Cholesterol 28.3 MG/DL (40.0-60.0) Neutrophils (%) (Auto) 70.6 % (16.0-70.0) Test 09/12/17 11:25 09/12/17 17:17 09/13/17 00:51 09/13/17 03:50 Blood Urea Nitrogen 23 MG/DL (7-18) 24 MG/DL (7-18) Creatinine 1.31 MG/DL (0.50-1.00) 1.24 MG/DL (0.50-1.00) Random Glucose 193 MG/DL (74-106) 164 MG/DL (74-106) Estimat Glomerular Filtration Rate 41 ML/MIN (>89) 44 ML/MIN (>89) Activated Partial Thromboplast Time 21.2 SEC (24.3-30.1) 37.5 SEC (24.3-30.1) Red Blood Count 3.43 MIL/MM3 (4.00-5.30) Hemoglobin 11.1 GM/DL (11.6-15.3) Hematocrit 33.0 % (35.0-46.0) Albumin 3.3 GM/DL (3.4-5.0) Aspartate Amino Transf (AST/SGOT) 40 U/L (15-37) Test 09/13/17 08:55 09/14/17 03:48 Activated Partial Thromboplast Time 39.4 SEC (24.3-30.1) Red Blood Count 3.47 MIL/MM3 (4.00-5.30) Hemoglobin 11.3 GM/DL (11.6-15.3) Hematocrit 33.3 % (35.0-46.0) Eosinophils (%) (Auto) 4.3 % (0.0-4.0) Blood Urea Nitrogen 26 MG/DL (7-18) Creatinine 1.35 MG/DL (0.50-1.00) Random Glucose 123 MG/DL (74-106) Estimat Glomerular Filtration Rate 40 ML/MIN (>89) Imaging Last Impressions Chest X-Ray 09/11/17 0728 Signed Impressions: Service Date/Time: Monday, September 11, 2017 07:32 - CONCLUSION: Cardiomegaly. No focal infiltrate or pulmonary vascular congestion. Eric Krishnamurthy MD PE at Discharge GENERAL: This is a well-nourished, well-developed patient,nad SKIN: No rashes, ecchymoses or lesions. Cool and dry. HEAD: Atraumatic. Normocephalic. No temporal or scalp tenderness. EYES: Pupils equal round and reactive. Extraocular motions intact. No scleral icterus. No injection or drainage. ENT: Nose without bleeding, purulent drainage or septal hematoma. Throat without erythema, tonsillar hypertrophy or exudate. Uvula midline. Airway patent. NECK: Trachea midline. No JVD or lymphadenopathy. Supple, nontender, no meningeal signs. CARDIOVASCULAR: Regular rate and rhythm without murmurs, gallops, or rubs. RESPIRATORY: Clear to auscultation. Breath sounds equal bilaterally. No wheezes , rales, or rhonchi. GASTROINTESTINAL: Obese abdomen, soft, non-tender, nondistended. No hepato- splenomegaly, or palpable masses. No guarding. MUSCULOSKELETAL: Extremities without clubbing, cyanosis, or edema. No joint tenderness, effusion, or edema noted. No calf tenderness. Negative Homans sign bilaterally. Tenderness to palpation of substernal region. NEUROLOGICAL: Awake and alert. Cranial nerves II through XII intact. Motor and sensory grossly within normal limits. Five out of 5 muscle strength in all muscle groups. Normal speech. Pt update on day of discharge Patient denies cp/sob. Pt Condition on Discharge: Stable Discharge Disposition: Discharge Home Discharge Time: <= 30 minutes Discharge Instructions DIET: Follow Instructions for: Heart Healthy Diet, Diabetic Diet Activities you can perform: See Additionl Instruction Activities to Avoid: Strenuous Activity, Sexual Activity Other Activity Instructions: as per cardiology instructions Follow up Referrals: Cardiology - 1 Week PCP Follow-up - 2 Weeks New Medications: Metformin (Metformin) 1,000 Mg Tab 1000 MG PO BIDPC for Blood Sugar Management, #60 TAB 0 Refills ok to resume taking on 09/15/2017 Clopidogrel (Plavix) 75 Mg Tab 75 MG PO DAILY for Blood Clot Prevention, #30 TAB Metoprolol Tartrate (Lopressor) 50 Mg Tab 100 MG PO BID for Blood Pressure Management, #62 TAB Continued Medications: Allopurinol (Allopurinol) 300 Mg Tab 300 MG PO HS for Gout, #30 TAB 0 Refills Alprazolam (Xanax) 1 Mg Tab 1 MG PO Q6H PRN for ANXIETY, TAB [address] (Aspirin DR) 81 Mg Tabdr 81 MG PO DAILY, TAB 0 Refills Atorvastatin (Lipitor) 20 Mg Tab 40 MG PO HS for Cholesterol Management, #30 TAB 0 Refills Bethanechol (Bethanechol) 25 Mg Tab 12.5 MG PO QID for Urinary Symptom Managemen, TAB 0 Refills Cetirizine HCl (Zyrtec) 10 Mg Capsule 1 TAB PO DAILY Cholecalciferol (Vitamin D3) 1,000 Unit Tab Unknown Dose PO DAILY for Nutritional Supplement, #1 BOTTLE 0 Refills Cyanocobalamin (B-12) Unknown Strength Tab Unknown Dose PO DAILY for Nutritional Supplement, #1 BOTTLE [address] (Cymbalta DR) 60 Mg Capdr 60 MG PO HS, #30 CAP 0 Refills Ferrous Sulfate (Ferrous Sulfate) 325 Mg (65 Mg Iron) Tablet 325 MG PO BID for Nutritional Supplement, #30 TAB 0 Refills Furosemide (Furosemide) 40 Mg Tab 40 MG PO DAILY, #30 TAB 0 Refills Gabapentin (Gabapentin) 800 Mg Tab 800 MG PO DAILY, #90 TAB 0 Refills Insulin Aspart Inj (Novolog Inj) 1,000 Unit/10 Ml Vial 25 UNITS SQ TID for Blood Sugar Management, #10 ML 0 Refills Sliding Scale as directed. Insulin Detemir Inj (Levemir Inj) 1,000 unit/ 10 ML Vial 60 UNITS SQ BID for Blood Sugar Management, VIAL 0 Refills Do not mix with any other Insulin. Magnesium (Magnesium) Unknown Strength Tab Unknown Dose PO DAILY, TAB Metformin (Metformin) 500 Mg Tab 1000 MG PO BIDPC for Blood Sugar Management, #60 TAB 0 Refills With meals Omeprazole (Omeprazole) 20 Mg Tab 20 MG PO BID, #30 TAB 0 Refills Oxycodone-Acetaminophen (Percocet) 10-325 mg Tab 1 TAB PO Q4H PRN for PAIN, TAB 0 Refills Pancrelipase (Creon) 36,000-114,000-180,000 Units Cap 1 CAP PO TIDPC for Digestive Aid, #90 CAP 0 Refills Potassium Chloride ER (Potassium Chloride ER) 20 Meq Tab 20 MEQ PO DAILY PRN for WHEN TAKING LASIX, #30 TAB 0 Refills Ropinirole (Ropinirole) 2 Mg Tab 2 MG PO TID, #90 TAB 0 Refills Spironolactone (Spironolactone) 50 Mg Tab 50 MG PO DAILY, #30 TAB 0 Refills Tizanidine (Tizanidine) 4 Mg Cap 4 MG PO QID PRN for MUSCLE SPASM, CAP 0 Refills Discontinued Medications: Clopidogrel (Plavix) 75 Mg Tab 75 MG PO DAILY for Blood Clot Prevention, #30 TAB 0 Refills Metoprolol Tartrate (Metoprolol Tartrate) 50 Mg Tab 50 MG PO BID, #30 TAB 0 Refills Agustin Santos MD Sep 14, 2017 10:32
[2017-09-14] MEDS: oxyCODONE/ACETAMINOPHEN 10 MG/325 MG TAB PO PRN (10:37)
--- NOTE | 2017-09-14 11:54 | PD.CARD.PN ---
Subjective Subjective Remarks No events overnight Post-cath Nitro weaned off, no chest pain Objective Medications Current Medications Medications (Trade) Dose Ordered Sig/Tree Route Start Time Stop Time Status Last Admin Nitroglycerin/ Dextrose 250 ml @ 1.5 mls/hr TITRATE PRN IV 09/11/17 16:45 09/12/17 17:21 (Zyloprim) 300 mg HS PO 09/11/17 21:00 09/13/17 21:52 (Xanax) 1 mg Q6H PRN PO 09/11/17 18:45 (Cymbalta Dr) 60 mg HS PO 09/11/17 21:00 09/13/17 21:53 (Lasix) 40 mg DAILY PO 09/12/17 09:00 Future hold 09/14/17 08:47 (Neurontin) 800 mg DAILY PO 09/12/17 09:00 09/14/17 08:46 (NovoLOG INJ) 25 units TID SQ 09/12/17 09:00 09/14/17 08:45 (Levemir Inj) 60 units BID SQ 09/11/17 21:00 09/14/17 08:46 (Percocet 10-325 Mg) 1 tab Q4H PRN PO 09/11/17 18:45 09/14/17 10:37 (Requip) 2 mg TID PO 09/12/17 09:00 09/14/17 08:46 (Aldactone) 50 mg DAILY PO 09/12/17 09:00 Future Hold 09/12/17 08:39 (Protonix) 20 mg BID PO 09/11/17 21:00 09/14/17 08:46 (NS Flush) 2 ml BID IV FLUSH 09/11/17 21:00 09/14/17 08:47 (NS Flush) 2 ml UNSCH PRN IV FLUSH 09/11/17 18:45 (Ecotrin Ec) 325 mg DAILY PO 09/12/17 09:00 09/14/17 08:46 (Plavix) 75 mg DAILY PO 09/11/17 18:45 09/14/17 08:46 (Morphine Inj) 2 mg Q30M PRN IV PUSH 09/11/17 18:45 09/12/17 08:35 (Tylenol) 650 mg Q6H PRN PO 3/24/18 18:45 09/12/17 03:40 (Colace) 100 mg BID PRN PO 09/11/17 18:45 (Zofran Inj) 4 mg Q6H PRN IV PUSH 09/11/17 18:45 (D50w (Vial) Inj) 50 ml UNSCH PRN IV PUSH 09/11/17 19:00 (Glucagon Inj) 1 mg UNSCH PRN OTHER 09/11/17 19:00 (NovoLOG SUPPLEMENTAL SCALE) 1 ACHS SLIDING SCALE SQ 09/11/17 21:00 09/14/17 08:00 (Creon 12-38-60) 3 cap TIDPC PO 09/12/17 09:30 09/14/17 08:47 Miscellaneous Information Patient in critical care unit? Ass... [id number] .XX 09/12/17 04:30 09/12/17 04:30 (Chlorhexidine 2% Cloth) 3 pack DAILY@04 TOPICAL 09/13/17 04:00 09/17/17 04:01 (Chlorhexidine 2% Cloth) 3 pack UNSCH PRN TOPICAL 09/12/17 04:30 09/17/17 04:22 (Lipitor) 20 mg HS PO 09/12/17 21:00 09/13/17 21:52 (Lopressor) 100 mg BID PO 09/12/17 10:00 09/14/17 08:46 Potassium Chloride 100 ml @ 50 mls/hr Q2H PRN IV 09/12/17 10:00 Potassium Chloride 100 ml @ 50 mls/hr Q2H PRN IV 09/12/17 10:00 (K-Lyte Cl Eff) 50 meq UNSCH PRN PO 09/12/17 10:00 Potassium Chloride 100 ml @ 25 mls/hr UNSCH PRN IV 09/12/17 10:00 Potassium Chloride 100 ml @ 50 mls/hr Q2H PRN IV 09/12/17 10:00 Magnesium Sulfate 4 gm/Sodium Chloride 100 ml @ 50 mls/hr UNSCH PRN IV 09/12/17 10:00 (Mag-Ox) 800 mg UNSCH PRN PO 09/12/17 10:00 Magnesium Sulfate 2 gm/Sodium Chloride 100 ml @ 50 mls/hr UNSCH PRN IV 09/12/17 10:00 (K-Phos) 2,000 mg Q4H PRN PO 09/12/17 10:00 Sodium Phosphate 30 mmol/Sodium Chloride 250 ml @ 42 mls/hr UNSCH PRN IV 09/12/17 10:00 (K-Phos) 2,000 mg UNSCH PRN PO/TUBE 09/12/17 10:00 Potassium Phosphate 30 mmol/ Sodium Chloride 260 ml @ 42 mls/hr UNSCH PRN IV 09/12/17 10:00 Vital Signs / I&O Vital Signs Date Time Temp Pulse Resp B/P (MAP) Pulse Ox O2 Delivery O2 Flow Rate FiO2 09/14/17 11:00 70 16 135/60 (85) 93 09/14/17 11:00 64 09/14/17 10:00 77 09/14/17 09:00 80 09/14/17 08:38 96 21 09/14/17 08:00 98.0 76 17 124/56 (78) 96 09/14/17 08:00 75 09/14/17 07:00 65 09/14/17 06:01 16 09/14/17 06:00 68 09/14/17 05:00 70 09/14/17 04:00 66 09/14/17 04:00 98.2 64 18 132/63 (86) 09/14/17 03:00 66 09/14/17 02:00 64 09/14/17 01:00 70 09/14/17 00:00 97.6 70 16 142/65 (90) 09/14/17 00:00 72 09/13/17 23:00 68 09/13/17 22:00 78 09/13/17 21:00 72 09/13/17 20:04 97 09/13/17 20:00 98.9 70 16 158/67 (97) 09/13/17 20:00 74 09/13/17 19:00 69 09/13/17 18:00 83 09/13/17 17:00 74 09/13/17 16:00 79 09/13/17 16:00 70 19 137/59 (85) 96 09/13/17 15:00 77 09/13/17 14:00 83 09/13/17 13:00 74 09/13/17 12:00 65 09/13/17 12:00 66 109/48 (68) I/O 3/2609/13/17 09/13/17 09/14/17 09/14/17 09/14/17 07:00 15:00 23:00 07:00 15:00 23:00 Intake Total 480 ml 200 ml 720 ml 240 ml Output Total 1050 ml 400 ml 1100 ml Balance -570 ml 200 ml 320 ml -860 ml Intake Oral 480 ml 720 ml 240 ml IV Total 200 ml Output Urine Total 1050 ml 400 ml 1100 ml # Bowel Movements 0 Physical Exam GENERAL: NAD, AAOx3 SKIN: Warm and dry. HEAD: Atraumatic. Normocephalic. EYES: Pupils equal and round. No scleral icterus. No injection or drainage. ENT: No nasal bleeding or discharge. Mucous membranes pink and moist. NECK: Trachea midline. No JVD. CARDIOVASCULAR: Regular rate and rhythm. RESPIRATORY: No accessory muscle use. Clear to auscultation. Breath sounds equal bilaterally. GASTROINTESTINAL: Abdomen soft, obese, non-tender, nondistended. Hepatic and splenic margins not palpable. MUSCULOSKELETAL: Extremities without clubbing, cyanosis, or edema. No obvious deformities. Right femoral no hematoma, distal pulses intact NEUROLOGICAL: Awake and alert. No obvious cranial nerve deficits. Motor grossly within normal limits. Five out of 5 muscle strength in the arms and legs. Normal speech. PSYCHIATRIC: Appropriate mood and affect; insight and judgment normal. Laboratory Laboratory Tests Test 09/14/17 03:48 White Blood Count 10.1 TH/MM3 Red Blood Count 3.47 MIL/MM3 Hemoglobin 11.3 GM/DL Hematocrit 33.3 % Mean Corpuscular Volume 96.2 FL Mean Corpuscular Hemoglobin 32.6 PG Mean Corpuscular Hemoglobin Concent 33.9 % Red Cell Distribution Width 14.2 % Platelet Count 299 TH/MM3 Mean Platelet Volume 8.2 FL Neutrophils (%) (Auto) 61.2 % Lymphocytes (%) (Auto) 26.7 % Monocytes (%) (Auto) 7.3 % Eosinophils (%) (Auto) 4.3 % Basophils (%) (Auto) 0.5 % Neutrophils # (Auto) 6.2 TH/MM3 Lymphocytes # (Auto) 2.7 TH/MM3 Monocytes # (Auto) 0.7 TH/MM3 Eosinophils # (Auto) 0.4 TH/MM3 Basophils # (Auto) 0.0 TH/MM3 CBC Comment DIFF FINAL Differential Comment Hematology Comments Blood Urea Nitrogen 26 MG/DL Creatinine 1.35 MG/DL Random Glucose 123 MG/DL Calcium Level 9.1 MG/DL Sodium Level 139 MEQ/L Potassium Level 3.9 MEQ/L Chloride Level 103 MEQ/L Carbon Dioxide Level 24.2 MEQ/L Anion Gap 12 MEQ/L Estimat Glomerular Filtration Rate 40 ML/MIN Assessment and Plan Problem List: (1) NSTEMI (non-ST elevated myocardial infarction) ICD Codes: I21.4 - Non-ST elevation (NSTEMI) myocardial infarction (2) CAD (coronary artery disease), autologous vein bypass graft ICD Codes: I25.810 - Atherosclerosis of coronary artery bypass graft(s) without angina pectoris Permanent Comment: SVG to RCA; stent in LAD Last Edited By: Geo Simmons MD on Sep 12, 2017 08:57 Assessment and Plan 1) NSTEMI Most likely due to distal LCx occlusion, overall small vessel (~1mm) As size of vessel is small, she's hemodynamically/electrically stable without chest pain, will plan to treat medically 2) Heparin drip stopped 3) Restart Lasix Restart Spironolactone if creatinine stable 4) Upon discharge, will followup with Dr. Menendez 5) Cardiovascularly stable for discharge today Problem Qualifiers (1) CAD (coronary artery disease), autologous vein bypass graft: Qualified Codes: I25.710 - Atherosclerosis of autologous vein coronary artery bypass graft(s) with unstable angina pectoris Miguel Shukla DO Sep 14, 2017 11:54
== END 2017-09-14 12:15 | disposition home or self-care (01) | DRG 281 ==
LOC: PHED 04:20 → PHEDA 11:14 → HIME 16:35 → HCPC 09-12 18:28
PROVIDERS: ADMIT Hospitalist; ATTEND Hospitalist
PROC: B2111ZZ Fluoroscopy of Multiple Coronary Arteries using Low Osmolar Contrast (ICD-10-PCS; 2017-09-13)
PROC: B2121ZZ Fluoroscopy of Single Coronary Artery Bypass Graft using Low Osmolar Contrast (ICD-10-PCS; 2017-09-13)
PROC: 4A023N7 Measurement of Cardiac Sampling and Pressure, Left Heart, Percutaneous Approach (ICD-10-PCS; principal; 2017-09-13 15:00)
DX: I21.4 Non-ST elevation (NSTEMI) myocardial infarction (principal); I13.0 Hypertensive heart and chronic kidney disease with heart failure and stage 1 through stage 4 chronic kidney disease, or unspecified chronic kidney disease; E11.22 Type 2 diabetes mellitus with diabetic chronic kidney disease; N17.9 Acute kidney failure, unspecified; I50.9 Heart failure, unspecified; N18.3 Chronic kidney disease, stage 3 (moderate); E11.42 Type 2 diabetes mellitus with diabetic polyneuropathy; Z68.41 Body mass index [BMI] 40.0-44.9, adult; E11.65 Type 2 diabetes mellitus with hyperglycemia; I25.2 Old myocardial infarction; I25.10 Atherosclerotic heart disease of native coronary artery without angina pectoris; Z95.5 Presence of coronary angioplasty implant and graft; E78.5 Hyperlipidemia, unspecified; Z79.4 Long term (current) use of insulin; Z87.891 Personal history of nicotine dependence; E66.9 Obesity, unspecified; J44.9 Chronic obstructive pulmonary disease, unspecified; E11.51 Type 2 diabetes mellitus with diabetic peripheral angiopathy without gangrene; Z88.8 Allergy status to other drugs, medicaments and biological substances
CPT/HCPCS: 71045; 80048; 80053; 80061; 82550; 82552; 82948; 83735; 84100; 84484; 85002; 85025; 85027; 85379; 85610; 85730; 87641; 93005; 93458; 93567; 99152; 99153; C1769; C1893; J1644; J1815; J2250; J2270; J3010; Q9967

== ENCOUNTER 2017-10-24 03:52 | Observation (INO) | payer OTHER, MEDICARE ==
[2017-10-24] MEDS ORDERED: SODIUM CHLORIDE 0.9% FLUSH 10 ML FLUSH IVF (04:30)
[2017-10-24] MEDS: ASPIRIN 81 MG CHEW TAB PO (04:38)
[2017-10-24] MEDS: NITROGLYCERIN 0.4 MG SL 25 TABS/BTL SL ×2 (04:38→05:11)
[2017-10-24 04:48] LABS: AUTOMATED NEUTROPHIL # 8.5 TH/MM3 (1.8-7.7); BASOPHIL # 0.1 TH/MM3 (0-0.2); BASOPHIL % 1.1 % (0.0-2.0); EOSINOPHIL # 0.2 TH/MM3 (0-0.4); EOSINOPHIL % 1.4 % (0.0-4.0); HEMATOCRIT 31.7 % (35.0-46.0); HEMO FLAGS DIFF FINAL; HEMOGLOBIN 10.6 GM/DL (11.6-15.3); LYMPH % 16.7 % (9.0-44.0); LYMPHOCYTE # 1.9 TH/MM3 (1.0-4.8); MEAN CORPUSCULAR HEMOGLOBIN 31.7 PG (27.0-34.0); MEAN CORPUSCULAR HGB CONC 33.4 % (32.0-36.0); MEAN PLATELET VOLUME 8.4 FL (7.0-11.0); MONOCYTE # 0.7 TH/MM3 (0-0.9); NEUT % 74.8 % (16.0-70.0); PLATELET COUNT 318 TH/MM3 (150-450); RED BLOOD COUNT 3.33 MIL/MM3 (4.00-5.30); RED CELL DISTRIBUTION WIDTH 14.7 % (11.6-17.2); WHITE BLOOD COUNT 11.4 TH/MM3 (4.0-11.0)
[2017-10-24 04:57] LABS: APTT (PATIENT) 27.7 SEC (24.3-30.1); PROTHROMBIN TIME - PATIENT 10.3 SEC (9.8-11.6)
[2017-10-24 05:02] LABS: ANION GAP 11 MEQ/L (5-15); BICARBONATE 22.1 MEQ/L (21.0-32.0); BLOOD UREA NITROGEN 31 MG/DL (7-18); CALCIUM 8.9 MG/DL (8.5-10.1); CHLORIDE 102 MEQ/L (98-107); CREATININE 1.52 MG/DL (0.50-1.00); GLOMERULAR FILTRATION RATE 35 ML/MIN (>89); GLUCOSE,RANDOM 220 MG/DL (74-106); MAGNESIUM 1.8 MG/DL (1.5-2.5); POTASSIUM 4.6 MEQ/L (3.5-5.1); SODIUM (NA) 135 MEQ/L (136-145)
[2017-10-24 05:05] LABS: TROPONIN I LESS THAN 0.02 NG/ML (0.02-0.05)
[2017-10-24 05:10] LABS: CREATINE KINASE 67 U/L (26-192)
[2017-10-24 05:12] LABS: B-TYPE NATRIURETIC PEPTIDE 488 PG/ML (0-100)
[2017-10-24] MEDS: NITROGLYCERIN 2% OINT 1 GM PACKET TOPICAL (06:09)
[2017-10-24] MEDS: FUROSEMIDE 40 MG/4 ML VIAL IV PUSH ×3 (06:09→17:39)
[2017-10-24] MEDS: RESP: ALBUTEROL 2.5 MG/IPRATROPIUM 0.5 MG NEB (SCH) NEB (06:13)
[2017-10-24] MEDS ORDERED: SODIUM CHLORIDE 0.9% FLUSH 10 ML FLUSH IV FLUSH (06:15)
[2017-10-24] MEDS ORDERED: MAGNESIUM HYDROXIDE SUSP 30 ML CUP PO (06:15)
[2017-10-24] MEDS ORDERED: BISACODYL 10 MG SUPP RECTAL (06:15)
[2017-10-24] MEDS ORDERED: ALPRAZolam 1 MG TAB PO (06:15)
[2017-10-24] MEDS ORDERED: ONDANSETRON HCL 4 MG/2 ML VIAL IVP (06:15)
[2017-10-24] MEDS ORDERED: LACTULOSE SYRUP 20 GM/30 ML CUP PO (06:15)
[2017-10-24] MEDS ORDERED: ACETAMINOPHEN 325 MG TAB PO (06:15)
[2017-10-24] MEDS ORDERED: SENNOSIDES 8.6 MG TAB PO (06:15)
[2017-10-24] MEDS: ONDANSETRON HCL 4 MG/2 ML VIAL IV PUSH (06:30)
[2017-10-24] MEDS: MORPHINE SULFATE 4 MG/ML INJ IV PUSH (06:31)
[2017-10-24] MEDS: HEPARIN SODIUM - SQ 10,000 UNITS/ML VIAL SQ ×2 (08:34→21:18)
[2017-10-24] MEDS: ASPIRIN EC 81 MG TABEC PO (08:42)
[2017-10-24] MEDS: GABAPENTIN 400 MG CAP PO (08:42)
[2017-10-24] MEDS: CLOPIDOGREL 75 MG TAB PO (08:43)
[2017-10-24] MEDS: SPIRONOLACTONE 50 MG TAB PO (08:43)
[2017-10-24] MEDS: DOCUSATE SODIUM 50 MG/SENNA 8.6 MG TAB PO ×2 (08:44→21:00)
[2017-10-24] MEDS: METOPROLOL TARTRATE 100 MG TAB PO ×2 (08:44→21:20)
[2017-10-24] MEDS: SODIUM CHLORIDE 0.9% FLUSH 10 ML FLUSH IV FLUSH ×2 (08:44→21:00)
[2017-10-24] MEDS: INSULIN DETEMIR 100 UNITS/ML VIAL SQ ×2 (08:45→21:20)
[2017-10-24] MEDS ORDERED: POTASSIUM CHLORIDE 20 MEQ CONTROLLED RELEASE TAB PO (09:00)
[2017-10-24] MEDS ORDERED: PILL SPLITTER OTHER (09:00)
[2017-10-24] MEDS ORDERED: DEXTROSE 50% IN WATER 50 ML VIAL(D50) IV PUSH (09:30)
[2017-10-24] MEDS ORDERED: GLUCAGON 1 MG/ML VIAL OTHER (09:30)
[2017-10-24] MEDS: CETIRIZINE HCL 10 MG TAB PO (10:02)
[2017-10-24] MEDS: ACETAMINOPHEN/HYDROcodone 325 MG/5 MG TAB PO (10:02)
[2017-10-24] MEDS: BETHANECHOL CHL 25 MG TAB PO ×4 (10:03→21:18)
[2017-10-24] MEDS: PANTOPRAZOLE SOD 20 MG DELAYED RELEASE TAB PO ×2 (10:03→21:19)
[2017-10-24] MEDS: FERROUS SULFATE 325 MG (65 MG ELEMENTAL IRON) TAB PO ×2 (10:03→21:17)
[2017-10-24] MEDS: POTASSIUM CHLORIDE 20 MEQ CONTROLLED RELEASE TAB PO ×2 (10:04→21:19)
[2017-10-24] MEDS: LIPASE/PROTEASE/AMYLASE (12,000/38,000/60,000) CAP PO ×3 (10:04→17:39)
[2017-10-24] MEDS: INSULIN ASPART 1,000 UNITS/10 ML VIAL SQ ×2 (12:00→17:00)
[2017-10-24] MEDS ORDERED: INSULIN ASPART 1,000 UNITS/10 ML VIAL SQ (12:00)
[2017-10-24] MEDS: INSULIN ASPART SUPPLEMENTAL SCALE SQ ×3 (12:00→21:21)
[2017-10-24 13:18] LABS: TROPONIN I LESS THAN 0.02 NG/ML (0.02-0.05)
[2017-10-24 17:48] LABS: TROPONIN I LESS THAN 0.02 NG/ML (0.02-0.05)
[2017-10-24] MEDS: ATORVASTATIN 40 MG TAB PO (21:17)
[2017-10-24] MEDS: DULoxetine HCl DR 60 MG CAP PO (21:17)
[2017-10-24] MEDS: ALLOPURINOL 300 MG TAB PO (21:17)
[2017-10-24] MEDS: MORPHINE SULFATE 4 MG/ML INJ IV (21:24)
[2017-10-25] MEDS: ACETAMINOPHEN/HYDROcodone 325 MG/5 MG TAB PO ×2 (04:35→21:59)
[2017-10-25 05:39] LABS: AUTOMATED NEUTROPHIL # 7.2 TH/MM3 (1.8-7.7); BASOPHIL # 0.1 TH/MM3 (0-0.2); BASOPHIL % 0.8 % (0.0-2.0); EOSINOPHIL # 0.2 TH/MM3 (0-0.4); EOSINOPHIL % 2.2 % (0.0-4.0); HEMO FLAGS DIFF FINAL; HEMOGLOBIN 11.3 GM/DL (11.6-15.3); LYMPH % 15.4 % (9.0-44.0); LYMPHOCYTE # 1.5 TH/MM3 (1.0-4.8); MEAN CELL VOLUME 94.3 FL (80.0-100.0); MEAN CORPUSCULAR HEMOGLOBIN 32.2 PG (27.0-34.0); MEAN CORPUSCULAR HGB CONC 34.2 % (32.0-36.0); MEAN PLATELET VOLUME 7.9 FL (7.0-11.0); MONO % 6.8 % (0.0-8.0); MONOCYTE # 0.7 TH/MM3 (0-0.9); NEUT % 74.8 % (16.0-70.0); PLATELET COUNT 364 TH/MM3 (150-450); RED BLOOD COUNT 3.49 MIL/MM3 (4.00-5.30); RED CELL DISTRIBUTION WIDTH 14.6 % (11.6-17.2); WHITE BLOOD COUNT 9.7 TH/MM3 (4.0-11.0)
[2017-10-25 06:05] LABS: ALBUMIN 3.6 GM/DL (3.4-5.0); ALT (GPT) 24 U/L (10-53); ANION GAP 9 MEQ/L (5-15); AST (GOT) 16 U/L (15-37); BICARBONATE 28.4 MEQ/L (21.0-32.0); BLOOD UREA NITROGEN 27 MG/DL (7-18); CALCIUM 9.7 MG/DL (8.5-10.1); CHLORIDE 103 MEQ/L (98-107); CREATININE 1.47 MG/DL (0.50-1.00); GLOMERULAR FILTRATION RATE 36 ML/MIN (>89); GLUCOSE,RANDOM 168 MG/DL (74-106); POTASSIUM 4.4 MEQ/L (3.5-5.1); SODIUM (NA) 140 MEQ/L (136-145)
[2017-10-25 06:08] LABS: ALKALINE PHOSPHATASE 110 U/L (45-117); TOTAL BILIRUBIN ADULT 0.5 MG/DL (0.2-1.0); TOTAL PROTEIN 7.9 GM/DL (6.4-8.2)
[2017-10-25] MEDS: DOCUSATE SODIUM 50 MG/SENNA 8.6 MG TAB PO ×2 (08:29→21:00)
[2017-10-25] MEDS: INSULIN ASPART 1,000 UNITS/10 ML VIAL SQ ×3 (08:45→18:15)
[2017-10-25] MEDS: INSULIN ASPART SUPPLEMENTAL SCALE SQ ×4 (08:46→21:57)
[2017-10-25] MEDS: INSULIN DETEMIR 100 UNITS/ML VIAL SQ ×2 (08:46→21:58)
[2017-10-25] MEDS: HEPARIN SODIUM - SQ 10,000 UNITS/ML VIAL SQ ×2 (08:47→21:49)
[2017-10-25] MEDS: CLOPIDOGREL 75 MG TAB PO (08:48)
[2017-10-25] MEDS: FUROSEMIDE 40 MG/4 ML VIAL IV PUSH ×2 (08:48→18:13)
[2017-10-25] MEDS: METOPROLOL TARTRATE 100 MG TAB PO ×2 (08:48→21:46)
[2017-10-25] MEDS: SODIUM CHLORIDE 0.9% FLUSH 10 ML FLUSH IV FLUSH ×2 (08:48→21:47)
[2017-10-25] MEDS: SPIRONOLACTONE 50 MG TAB PO (08:49)
[2017-10-25] MEDS: ASPIRIN EC 81 MG TABEC PO (08:49)
[2017-10-25] MEDS: BETHANECHOL CHL 25 MG TAB PO ×4 (08:49→21:47)
[2017-10-25] MEDS: PANTOPRAZOLE SOD 20 MG DELAYED RELEASE TAB PO ×2 (08:49→21:46)
[2017-10-25] MEDS: POTASSIUM CHLORIDE 20 MEQ CONTROLLED RELEASE TAB PO ×2 (08:49→21:46)
[2017-10-25] MEDS: FERROUS SULFATE 325 MG (65 MG ELEMENTAL IRON) TAB PO ×2 (08:49→21:46)
[2017-10-25] MEDS: CETIRIZINE HCL 10 MG TAB PO (08:49)
[2017-10-25] MEDS: GABAPENTIN 400 MG CAP PO (08:50)
[2017-10-25] MEDS: LIPASE/PROTEASE/AMYLASE (12,000/38,000/60,000) CAP PO ×3 (08:57→18:13)
[2017-10-25] MEDS: MORPHINE SULFATE 4 MG/ML INJ IV (16:03)
[2017-10-25] MEDS: ALLOPURINOL 300 MG TAB PO (21:46)
[2017-10-25] MEDS: ATORVASTATIN 40 MG TAB PO (21:46)
[2017-10-25] MEDS: DULoxetine HCl DR 60 MG CAP PO (21:46)
[2017-10-26] MEDS: INSULIN ASPART SUPPLEMENTAL SCALE SQ ×4 (09:23→22:48)
[2017-10-26] MEDS: INSULIN ASPART 1,000 UNITS/10 ML VIAL SQ ×3 (09:23→18:34)
[2017-10-26] MEDS: SODIUM CHLORIDE 0.9% FLUSH 10 ML FLUSH IV FLUSH ×2 (09:24→22:34)
[2017-10-26] MEDS: INSULIN DETEMIR 100 UNITS/ML VIAL SQ ×2 (09:24→22:54)
[2017-10-26] MEDS: FUROSEMIDE 40 MG/4 ML VIAL IV PUSH ×2 (09:24→18:35)
[2017-10-26] MEDS: ASPIRIN EC 81 MG TABEC PO (09:25)
[2017-10-26] MEDS: HEPARIN SODIUM - SQ 10,000 UNITS/ML VIAL SQ ×2 (09:25→22:38)
[2017-10-26] MEDS: LIPASE/PROTEASE/AMYLASE (12,000/38,000/60,000) CAP PO ×3 (09:25→18:35)
[2017-10-26] MEDS: CLOPIDOGREL 75 MG TAB PO (09:26)
[2017-10-26] MEDS: FERROUS SULFATE 325 MG (65 MG ELEMENTAL IRON) TAB PO ×2 (09:26→22:48)
[2017-10-26] MEDS: CETIRIZINE HCL 10 MG TAB PO (09:26)
[2017-10-26] MEDS: METOPROLOL TARTRATE 100 MG TAB PO ×2 (09:26→22:37)
[2017-10-26] MEDS: PANTOPRAZOLE SOD 20 MG DELAYED RELEASE TAB PO ×2 (09:26→22:38)
[2017-10-26] MEDS: POTASSIUM CHLORIDE 20 MEQ CONTROLLED RELEASE TAB PO ×2 (09:26→22:36)
[2017-10-26] MEDS: GABAPENTIN 400 MG CAP PO (09:26)
[2017-10-26] MEDS: SPIRONOLACTONE 50 MG TAB PO (09:26)
[2017-10-26] MEDS: BETHANECHOL CHL 25 MG TAB PO ×4 (09:27→22:36)
[2017-10-26] MEDS: DOCUSATE SODIUM 50 MG/SENNA 8.6 MG TAB PO ×2 (09:27→22:37)
[2017-10-26] MEDS: ALLOPURINOL 300 MG TAB PO (22:37)
[2017-10-26] MEDS: ATORVASTATIN 40 MG TAB PO (22:37)
[2017-10-26] MEDS: DULoxetine HCl DR 60 MG CAP PO (22:37)
[2017-10-27] MEDS: ACETAMINOPHEN/HYDROcodone 325 MG/5 MG TAB PO (01:03)
[2017-10-27] MEDS ORDERED: TORSEMIDE 20 MG TAB PO (09:00)
== END 2017-10-27 10:03 | disposition home or self-care (01) ==
LOC: NEPC 03:52 → NEDA 06:08 → NEPFCDU 06:55
DX: I13.0 Hypertensive heart and chronic kidney disease with heart failure and stage 1 through stage 4 chronic kidney disease, or unspecified chronic kidney disease (principal); I50.9 Heart failure, unspecified; E11.22 Type 2 diabetes mellitus with diabetic chronic kidney disease; N18.3 Chronic kidney disease, stage 3 (moderate); R07.89 Other chest pain; I25.10 Atherosclerotic heart disease of native coronary artery without angina pectoris; I25.2 Old myocardial infarction; J44.9 Chronic obstructive pulmonary disease, unspecified; G47.33 Obstructive sleep apnea (adult) (pediatric); E78.5 Hyperlipidemia, unspecified; F32.9 Major depressive disorder, single episode, unspecified; F41.9 Anxiety disorder, unspecified; Z79.4 Long term (current) use of insulin; Z85.42 Personal history of malignant neoplasm of other parts of uterus; Z95.5 Presence of coronary angioplasty implant and graft; Z79.899 Other long term (current) drug therapy; Z79.82 Long term (current) use of aspirin; Z87.891 Personal history of nicotine dependence; Z95.1 Presence of aortocoronary bypass graft
CPT/HCPCS: 71045; 80048; 80053; 82550; 82948; 83735; 83880; 84484; 85025; 85610; 85730; 93005; 93306; 93971; 94664; 96372; 96374; 96375; 96376; 99285-25

== ENCOUNTER 2018-05-20 14:35 | Observation (INO) ==
--- NOTE | 2018-05-20 15:21 | CT ---
EXAM DATE: 05/20/2018 3:17 PM EST AGE/SEX: 62 years / Female INDICATIONS: Intermittent slurred speech and uncontrollable shaking CLINICAL DATA: This is the patient's initial encounter. Patient reports that signs and symptoms have been present for 1 day and indicates a pain score of 0/10. MEDICAL/SURGICAL HISTORY: Diabetes. Hypertension. Myocardial infarction. Renal Failure CABG. RADIATION DOSE: 56.35 CTDI (mGy) COMPARISON: [facility] – [place] BRAIN W/O CONTRAST, 01/26/2017. . TECHNIQUE: CT of the head without contrast. Using automated exposure control and adjustment of the mA and/or kV according to patient size, radiation dose was kept as low as reasonably achievable to ob tain optimal diagnostic quality images. DICOM format image data is available electronically for revi ew and comparison. FINDINGS: Cerebrum: The ventricles are normal for age. No evidence of midline shift, mass lesion, hemorrhage or acute infarction. No extraaxial fluid collections are seen. Posterior Fossa: The cerebellum and brainstem are intact. The 4th ventricle is midline. The cerebe llopontine angle is unremarkable. Extracranial: The visualized portion of the orbits is intact. Skull: The calvaria is intact. No evidence of skull fracture. CONCLUSION: No acute intracranial abnormalities seen. No areas of acute hemorrhage or mass effect are seen. Report was called by [Dr. Nash to Dr. Beal at 3:18 PM] Electronically signed by: Cedric Nash MD 05/20/2018 3:20 PM EST
[2018-05-20 15:28] LABS: Baso # (Auto) 0.1 th/mm3 (0.0-0.2); Baso % (Auto) 0.7 % (0.0-2.0); Eos % (Auto) 0.3 % (0.0-4.0); Hematocrit 35.5 % (35.0-46.0); Hemoglobin 11.9 gm/dL (11.6-15.3); Lymph # (Auto) 1.7 th/mm3 (1.0-4.8); Lymph % (Auto) 11.3 % (9.0-44.0); Mean Corpuscular HGB Conc 33.4 % (32.0-36.0); Mean Corpuscular Hemoglobin 32.9 pg (27.0-34.0); Mean Corpuscular Volume 98.5 fL (80.0-100.0); Mean Platelet Volume 8.4 fL (7.0-11.0); Mono # (Auto) 0.7 th/mm3 (0.0-0.9); Neut # (Auto) 12.3 th/mm3 (1.8-7.7); Neut % (Auto) 82.7 % (16.0-70.0); Platelet Count 371 th/mm3 (150-450); Red Cell Distribution Width 14.8 % (11.6-17.2); White Blood Count 14.8 th/mm3 (4.0-11.0)
[2018-05-20 15:40] LABS: Calcium 8.9 mg/dL (8.5-10.1); Carbon Dioxide 21.5 meq/L (21.0-32.0); Potassium 5.1 meq/L (3.5-5.1)
[2018-05-20 15:44] LABS: Activated Partial Thrombo Time 23.3 sec (23.4-31.7); INR 1.1 Ratio; Prothrombin Time 10.8 sec (9.8-11.6)
--- NOTE | 2018-05-20 15:48 | ED ---
HPI General Chief complaint: Neuro Symptoms/Deficit Stated complaint: gen weakness Time Seen by Provider: 05/20/18 14:58 Source: patient Mode of arrival: ambulatory Limitations: no limitations History of Present Illness HPI narrative: 62yo F with CKD, DM, HTN, CAD here with neuro symptoms. Patient said she rolled off the bed at about midnight and then hit her head. said she has intermittent slurred speech but now speech has improved. Pt complained of bilateral lower extremity weakness that she said is new. Initially there is no drift for 5 seconds in bilateral legs. However, on repeat exam, pt had drift in right leg. Pt has neuropathy in legs and that is not new. Speech is normal now. Related Data Home Medications Medication Instructions Recorded Confirmed allopurinol 300 mg PO DAILY 05/20/18 05/20/18 alprazolam 1 mg PO BID 05/20/18 05/20/18 aspirin 81 mg PO DAILY 05/20/18 05/20/18 bethanechol chloride 12.5 mg PO QID 05/20/18 05/20/18 duloxetine [Cymbalta] 60 mg PO DAILY 05/20/18 05/20/18 ferrous sulfate 325 mg PO BID 05/20/18 05/20/18 gabapentin [Neurontin] 800 mg PO DAILY 05/20/18 05/20/18 insulin aspart U-100 [Novolog 1 sliding scale dose SUBCUT AC 05/20/18 05/20/18 U-100 Insulin aspart] insulin detemir U-100 [Levemir 60 unit SUBCUT BID 05/20/18 05/20/18 U-100 Insulin] biuwma-[id number] [Creon] 2 cap PO TID 05/20/18 05/20/18 metformin 1,000 mg PO BID 05/20/18 05/20/18 metoprolol tartrate 50 mg PO BID 05/20/18 05/20/18 omeprazole 20 mg PO DAILY 05/20/18 05/20/18 oxycodone-acetaminophen [Percocet] 1 tab PO Q6H PRN 05/20/18 05/20/18 ropinirole 2 mg PO TID 05/20/18 05/20/18 rosuvastatin 40 mg PO DAILY 05/20/18 05/20/18 spironolactone 50 mg PO DAILY 05/20/18 05/20/18 tizanidine 4 mg PO TID 05/20/18 05/20/18 torsemide 20 mg PO BID 05/20/18 05/20/18 cholestyramine-aspartame 4 g PO DAILY 05/22/18 05/22/18 [Prevalite] Allergies Allergy/AdvReac Type Severity Reaction Status Date / Time losartan Allergy Severe Hypotension Verified 05/22/18 21:04 olmesartan Allergy Severe Hypotension Verified 05/22/18 21:04 Review of Systems ROS: all other systems reviewed are negative [facility] Social History Social History Substance History: No History of Abuse Second Hand Smoke Exposure: No Smoking Status: Former smoker How Often Do You Have a Drink Containing Alcohol: Monthly or less Recent Travel in [facility] within the Last 8 Weeks: No Recent Out of Country Travel within the Last 8 Weeks: No Immunization History Tetanus Immunization: Unsure Exam Narrative Exam Narrative: GENERAL: 62yo F in mild distress. SKIN: Focused skin assessment warm/dry. HEAD: Atraumatic. Normocephalic. EYES: Pupils equal and round. No scleral icterus. No injection or drainage. ENT: No nasal bleeding or discharge. Mucous membranes pink and moist. NECK: Trachea midline. No JVD. CARDIOVASCULAR: Regular rate and rhythm. No murmur appreciated. RESPIRATORY: No accessory muscle use. Clear to auscultation. Breath sounds equal bilaterally. GASTROINTESTINAL: Abdomen soft, non-tender, nondistended. MUSCULOSKELETAL: No obvious deformities. No clubbing. No cyanosis. No edema. NEUROLOGICAL: Awake and alert. No obvious cranial nerve deficits. Mild drift in right lower extremity. NIH stroke 1. Course Initial Documented Vital Signs Temperature 98.1 F 05/20/18 14:39 Respiratory Rate 22 05/20/18 14:39 Blood Pressure 128/93 H 05/20/18 14:39 Last Documented Vital Signs Temperature 97.8 F 05/23/18 08:00 Pulse Rate 73 05/23/18 08:00 Respiratory Rate 16 05/23/18 08:00 Blood Pressure 142/63 H 05/23/18 08:00 Pulse Oximetry 98 05/23/18 09:05 Medical Decision Making MDM Narrative Medical decision making narrative: 62yo F with neuro symptoms that waxes and wanes. Initially did not have lower extremity weakness on exam but then on reexamination she did have some drift in right leg so stroke alert was called. Did discuss with Dr. Marquez who recommends observation for stroke if CT brain negative. Labs reviewed, mild leukocytosis at 14.8. H/H normal. BUN/ creatinine elevated at 36/2.48. Baseline creatinine 1.47 so this is slightly elevated. CT brain negative. Discussed with Dr. Desouza and accepted to his service. Medical Screen Exam Complete: Yes Emergency Medical Condition: Yes Differential Diagnosis Differential Diagnosis: TIA vs. anxiety vs. dehydration vs. electrolyte abnormality vs. conversion disorder Lab Data Result diagrams: 05/21/18 07:30 05/22/18 16:49 Lab Results 05/20/18 05/20/18 05/20/18 Range/Units 15:00 15:00 15:00 WBC 14.8 H (4.0-11.0) th/mm3 RBC 3.60 L (4.00-5.30) mil/mm3 Hgb 11.9 (11.6-15.3) gm/dL POC Hgb (Calc) 12.6 (11.6-15.3) g/dL Hct 35.5 (35.0-46.0) % POC Hct 37.0 (35-46.0) % MCV 98.5 (80.0-100.0) fL MCH 32.9 (27.0-34.0) pg MCHC 33.4 (32.0-36.0) % RDW 14.8 (11.6-17.2) % Plt Count 371 (150-450) th/mm3 MPV 8.4 (7.0-11.0) fL Neut % (Auto) 82.7 H (16.0-70.0) % Lymph % (Auto) 11.3 (9.0-44.0) % Rhea % (Auto) 5.0 (0.0-8.0) % Eos % (Auto) 0.3 (0.0-4.0) % Baso % (Auto) 0.7 (0.0-2.0) % Neut # (Auto) 12.3 H (1.8-7.7) th/mm3 Lymph # (Auto) 1.7 (1.0-4.8) th/mm3 Rhea # (Auto) 0.7 (0.0-0.9) th/mm3 Eos # (Auto) 0.0 (0.0-0.4) th/mm3 Baso # (Auto) 0.1 (0.0-0.2) th/mm3 WBC Differential . Differential Comment Auto diff final PT 10.8 (9.8-11.6) sec INR 1.1 Ratio APTT 23.3 L (23.4-31.7) sec POC Sodium 141 (137-144) mmol/L Sodium 139 (136-145) meq/L POC Potassium 5.1 H (3.6-5.0) mmol/L Potassium 5.1 (3.5-5.1) meq/L POC Chloride 104 (102-111) mmol/L Chloride 102 (98-107) meq/L Carbon Dioxide 21.5 (21.0-32.0) meq/L Anion Gap 16 H (5-15) meq/L POC BUN 35 H (5-21) mg/dL BUN 36 H (7-18) mg/dL Creatinine 2.48 H (0.50-1.00) mg/dL POC Creatinine 2.2 H (0.6-1.3) mg/dL Estimated GFR 20 L (>89) mL/min POC Glucose 225 H (68-110) mg/dL Random Glucose 221 H (74-106) mg/dL Hemoglobin A1c (4.3-6.0) % Calcium 8.9 (8.5-10.1) mg/dL Total Bilirubin (0.2-1.0) mg/dL AST (15-37) U/L ALT (10-53) U/L Alkaline Phosphatase (45-117) U/L Ammonia (11-32) mcmol/L Troponin I (0.02-0.05) ng/mL Total Protein (6.4-8.2) g/dL Albumin (3.4-5.0) g/dL Triglycerides (42-150) mg/dL Cholesterol (120-200) mg/dL LDL Cholesterol, Calc (0-99) mg/dL HDL Cholesterol (40.0-60.0) mg/dL Cholesterol/HDL Ratio Ratio 05/20/18 05/20/18 05/20/18 Range/Units 15:00 15:00 15:05 WBC (4.0-11.0) th/mm3 RBC (4.00-5.30) mil/mm3 Hgb (11.6-15.3) gm/dL POC Hgb (Calc) (11.6-15.3) g/dL Hct (35.0-46.0) % POC Hct (35-46.0) % MCV (80.0-100.0) fL MCH (27.0-34.0) pg MCHC (32.0-36.0) % RDW (11.6-17.2) % Plt Count (150-450) th/mm3 MPV (7.0-11.0) fL Neut % (Auto) (16.0-70.0) % Lymph % (Auto) (9.0-44.0) % Rhea % (Auto) (0.0-8.0) % Eos % (Auto) (0.0-4.0) % Baso % (Auto) (0.0-2.0) % Neut # (Auto) (1.8-7.7) th/mm3 Lymph # (Auto) (1.0-4.8) th/mm3 Rhea # (Auto) (0.0-0.9) th/mm3 Eos # (Auto) (0.0-0.4) th/mm3 Baso # (Auto) (0.0-0.2) th/mm3 WBC Differential Differential Comment PT (9.8-11.6) sec INR Ratio APTT (23.4-31.7) sec POC Sodium (137-144) mmol/L Sodium (136-145) meq/L POC Potassium (3.6-5.0) mmol/L Potassium (3.5-5.1) meq/L POC Chloride (102-111) mmol/L Chloride (98-107) meq/L Carbon Dioxide (21.0-32.0) meq/L Anion Gap (5-15) meq/L POC BUN (5-21) mg/dL BUN (7-18) mg/dL Creatinine (0.50-1.00) mg/dL POC Creatinine (0.6-1.3) mg/dL Estimated GFR (>89) mL/min POC Glucose 214 H (68-110) mg/dL Random Glucose (74-106) mg/dL Hemoglobin A1c 8.5 H (4.3-6.0) % Calcium (8.5-10.1) mg/dL Total Bilirubin (0.2-1.0) mg/dL AST (15-37) U/L ALT (10-53) U/L Alkaline Phosphatase (45-117) U/L Ammonia (11-32) mcmol/L Troponin I (0.02-0.05) ng/mL Total Protein (6.4-8.2) g/dL Albumin (3.4-5.0) g/dL Triglycerides 264 H (42-150) mg/dL Cholesterol 97 L (120-200) mg/dL LDL Cholesterol, Calc 9 (0-99) mg/dL HDL Cholesterol 35.4 L (40.0-60.0) mg/dL Cholesterol/HDL Ratio 2.74 Ratio 05/20/18 05/20/18 05/20/18 Range/Units 18:22 18:45 23:36 WBC (4.0-11.0) th/mm3 RBC (4.00-5.30) mil/mm3 Hgb (11.6-15.3) gm/dL POC Hgb (Calc) (11.6-15.3) g/dL Hct (35.0-46.0) % POC Hct (35-46.0) % MCV (80.0-100.0) fL MCH (27.0-34.0) pg MCHC (32.0-36.0) % RDW (11.6-17.2) % Plt Count (150-450) th/mm3 MPV (7.0-11.0) fL Neut % (Auto) (16.0-70.0) % Lymph % (Auto) (9.0-44.0) % Rhea % (Auto) (0.0-8.0) % Eos % (Auto) (0.0-4.0) % Baso % (Auto) (0.0-2.0) % Neut # (Auto) (1.8-7.7) th/mm3 Lymph # (Auto) (1.0-4.8) th/mm3 Rhea # (Auto) (0.0-0.9) th/mm3 Eos # (Auto) (0.0-0.4) th/mm3 Baso # (Auto) (0.0-0.2) th/mm3 WBC Differential Differential Comment PT (9.8-11.6) sec INR Ratio APTT (23.4-31.7) sec POC Sodium (137-144) mmol/L Sodium (136-145) meq/L POC Potassium (3.6-5.0) mmol/L Potassium (3.5-5.1) meq/L POC Chloride (102-111) mmol/L Chloride (98-107) meq/L Carbon Dioxide (21.0-32.0) meq/L Anion Gap (5-15) meq/L POC BUN (5-21) mg/dL BUN (7-18) mg/dL Creatinine (0.50-1.00) mg/dL POC Creatinine (0.6-1.3) mg/dL Estimated GFR (>89) mL/min POC Glucose 167 H 190 H (68-110) mg/dL Random Glucose (74-106) mg/dL Hemoglobin A1c (4.3-6.0) % Calcium (8.5-10.1) mg/dL Total Bilirubin (0.2-1.0) mg/dL AST (15-37) U/L ALT (10-53) U/L Alkaline Phosphatase (45-117) U/L Ammonia (11-32) mcmol/L Troponin I Less than 0.02 L (0.02-0.05) ng/mL Total Protein (6.4-8.2) g/dL Albumin (3.4-5.0) g/dL Triglycerides (42-150) mg/dL Cholesterol (120-200) mg/dL LDL Cholesterol, Calc (0-99) mg/dL HDL Cholesterol (40.0-60.0) mg/dL Cholesterol/HDL Ratio Ratio 05/21/18 05/21/18 05/21/18 Range/Units 00:32 05:17 07:30 WBC 9.0 (4.0-11.0) th/mm3 RBC 3.24 L (4.00-5.30) mil/mm3 Hgb 10.5 L (11.6-15.3) gm/dL POC Hgb (Calc) (11.6-15.3) g/dL Hct 31.6 L (35.0-46.0) % POC Hct (35-46.0) % MCV 97.7 (80.0-100.0) fL MCH 32.6 (27.0-34.0) pg MCHC 33.3 (32.0-36.0) % RDW 14.9 (11.6-17.2) % Plt Count 276 (150-450) th/mm3 MPV 8.4 (7.0-11.0) fL Neut % (Auto) 65.7 (16.0-70.0) % Lymph % (Auto) 26.0 (9.0-44.0) % Rhea % (Auto) 6.5 (0.0-8.0) % Eos % (Auto) 1.0 (0.0-4.0) % Baso % (Auto) 0.8 (0.0-2.0) % Neut # (Auto) 5.9 (1.8-7.7) th/mm3 Lymph # (Auto) 2.3 (1.0-4.8) th/mm3 Rhea # (Auto) 0.6 (0.0-0.9) th/mm3 Eos # (Auto) 0.1 (0.0-0.4) th/mm3 Baso # (Auto) 0.1 (0.0-0.2) th/mm3 WBC Differential . Differential Comment Auto diff final PT (9.8-11.6) sec INR Ratio APTT (23.4-31.7) sec POC Sodium (137-144) mmol/L Sodium (136-145) meq/L POC Potassium (3.6-5.0) mmol/L Potassium (3.5-5.1) meq/L POC Chloride (102-111) mmol/L Chloride (98-107) meq/L Carbon Dioxide (21.0-32.0) meq/L Anion Gap (5-15) meq/L POC BUN (5-21) mg/dL BUN (7-18) mg/dL Creatinine (0.50-1.00) mg/dL POC Creatinine (0.6-1.3) mg/dL Estimated GFR (>89) mL/min POC Glucose 176 H (68-110) mg/dL Random Glucose (74-106) mg/dL Hemoglobin A1c (4.3-6.0) % Calcium (8.5-10.1) mg/dL Total Bilirubin (0.2-1.0) mg/dL AST (15-37) U/L ALT (10-53) U/L Alkaline Phosphatase (45-117) U/L Ammonia (11-32) mcmol/L Troponin I Less than 0.02 L (0.02-0.05) ng/mL Total Protein (6.4-8.2) g/dL Albumin (3.4-5.0) g/dL Triglycerides (42-150) mg/dL Cholesterol (120-200) mg/dL LDL Cholesterol, Calc (0-99) mg/dL HDL Cholesterol (40.0-60.0) mg/dL Cholesterol/HDL Ratio Ratio 05/21/18 05/21/18 05/21/18 Range/Units 07:30 07:30 09:13 WBC (4.0-11.0) th/mm3 RBC (4.00-5.30) mil/mm3 Hgb (11.6-15.3) gm/dL POC Hgb (Calc) (11.6-15.3) g/dL Hct (35.0-46.0) % POC Hct (35-46.0) % MCV (80.0-100.0) fL MCH (27.0-34.0) pg MCHC (32.0-36.0) % RDW (11.6-17.2) % Plt Count (150-450) th/mm3 MPV (7.0-11.0) fL Neut % (Auto) (16.0-70.0) % Lymph % (Auto) (9.0-44.0) % Rhea % (Auto) (0.0-8.0) % Eos % (Auto) (0.0-4.0) % Baso % (Auto) (0.0-2.0) % Neut # (Auto) (1.8-7.7) th/mm3 Lymph # (Auto) (1.0-4.8) th/mm3 Rhea # (Auto) (0.0-0.9) th/mm3 Eos # (Auto) (0.0-0.4) th/mm3 Baso # (Auto) (0.0-0.2) th/mm3 WBC Differential Differential Comment PT (9.8-11.6) sec INR Ratio APTT (23.4-31.7) sec POC Sodium (137-144) mmol/L Sodium 140 (136-145) meq/L POC Potassium (3.6-5.0) mmol/L Potassium 3.9 D (3.5-5.1) meq/L POC Chloride (102-111) mmol/L Chloride 106 (98-107) meq/L Carbon Dioxide 26.3 (21.0-32.0) meq/L Anion Gap 8 (5-15) meq/L POC BUN (5-21) mg/dL BUN 24 H (7-18) mg/dL Creatinine 1.48 H (0.50-1.00) mg/dL POC Creatinine (0.6-1.3) mg/dL Estimated GFR 36 L (>89) mL/min POC Glucose 150 H (68-110) mg/dL Random Glucose 145 H (74-106) mg/dL Hemoglobin A1c (4.3-6.0) % Calcium 9.1 (8.5-10.1) mg/dL Total Bilirubin 0.4 (0.2-1.0) mg/dL AST 35 (15-37) U/L ALT 24 (10-53) U/L Alkaline Phosphatase 97 (45-117) U/L Ammonia (11-32) mcmol/L Troponin I Less than 0.02 L (0.02-0.05) ng/mL Total Protein 7.1 (6.4-8.2) g/dL Albumin 3.4 (3.4-5.0) g/dL Triglycerides (42-150) mg/dL Cholesterol (120-200) mg/dL LDL Cholesterol, Calc (0-99) mg/dL HDL Cholesterol (40.0-60.0) mg/dL Cholesterol/HDL Ratio Ratio 05/21/18 05/21/18 05/21/18 Range/Units 12:34 17:13 20:51 WBC (4.0-11.0) th/mm3 RBC (4.00-5.30) mil/mm3 Hgb (11.6-15.3) gm/dL POC Hgb (Calc) (11.6-15.3) g/dL Hct (35.0-46.0) % POC Hct (35-46.0) % MCV (80.0-100.0) fL MCH (27.0-34.0) pg MCHC (32.0-36.0) % RDW (11.6-17.2) % Plt Count (150-450) th/mm3 MPV (7.0-11.0) fL Neut % (Auto) (16.0-70.0) % Lymph % (Auto) (9.0-44.0) % Rhea % (Auto) (0.0-8.0) % Eos % (Auto) (0.0-4.0) % Baso % (Auto) (0.0-2.0) % Neut # (Auto) (1.8-7.7) th/mm3 Lymph # (Auto) (1.0-4.8) th/mm3 Rhea # (Auto) (0.0-0.9) th/mm3 Eos # (Auto) (0.0-0.4) th/mm3 Baso # (Auto) (0.0-0.2) th/mm3 WBC Differential Differential Comment PT (9.8-11.6) sec INR Ratio APTT (23.4-31.7) sec POC Sodium (137-144) mmol/L Sodium (136-145) meq/L POC Potassium (3.6-5.0) mmol/L Potassium (3.5-5.1) meq/L POC Chloride (102-111) mmol/L Chloride (98-107) meq/L Carbon Dioxide (21.0-32.0) meq/L Anion Gap (5-15) meq/L POC BUN (5-21) mg/dL BUN (7-18) mg/dL Creatinine (0.50-1.00) mg/dL POC Creatinine (0.6-1.3) mg/dL Estimated GFR (>89) mL/min POC Glucose 205 H 227 H 262 H (68-110) mg/dL Random Glucose (74-106) mg/dL Hemoglobin A1c (4.3-6.0) % Calcium (8.5-10.1) mg/dL Total Bilirubin (0.2-1.0) mg/dL AST (15-37) U/L ALT (10-53) U/L Alkaline Phosphatase (45-117) U/L Ammonia (11-32) mcmol/L Troponin I (0.02-0.05) ng/mL Total Protein (6.4-8.2) g/dL Albumin (3.4-5.0) g/dL Triglycerides (42-150) mg/dL Cholesterol (120-200) mg/dL LDL Cholesterol, Calc (0-99) mg/dL HDL Cholesterol (40.0-60.0) mg/dL Cholesterol/HDL Ratio Ratio 05/22/18 05/22/18 05/22/18 Range/Units 01:16 06:04 12:34 WBC (4.0-11.0) th/mm3 RBC (4.00-5.30) mil/mm3 Hgb (11.6-15.3) gm/dL POC Hgb (Calc) (11.6-15.3) g/dL Hct (35.0-46.0) % POC Hct (35-46.0) % MCV (80.0-100.0) fL MCH (27.0-34.0) pg MCHC (32.0-36.0) % RDW (11.6-17.2) % Plt Count (150-450) th/mm3 MPV (7.0-11.0) fL Neut % (Auto) (16.0-70.0) % Lymph % (Auto) (9.0-44.0) % Rhea % (Auto) (0.0-8.0) % Eos % (Auto) (0.0-4.0) % Baso % (Auto) (0.0-2.0) % Neut # (Auto) (1.8-7.7) th/mm3 Lymph # (Auto) (1.0-4.8) th/mm3 Rhea # (Auto) (0.0-0.9) th/mm3 Eos # (Auto) (0.0-0.4) th/mm3 Baso # (Auto) (0.0-0.2) th/mm3 WBC Differential Differential Comment PT (9.8-11.6) sec INR Ratio APTT (23.4-31.7) sec POC Sodium (137-144) mmol/L Sodium (136-145) meq/L POC Potassium (3.6-5.0) mmol/L Potassium (3.5-5.1) meq/L POC Chloride (102-111) mmol/L Chloride (98-107) meq/L Carbon Dioxide (21.0-32.0) meq/L Anion Gap (5-15) meq/L POC BUN (5-21) mg/dL BUN (7-18) mg/dL Creatinine (0.50-1.00) mg/dL POC Creatinine (0.6-1.3) mg/dL Estimated GFR (>89) mL/min POC Glucose 226 H 176 H 205 H (68-110) mg/dL Random Glucose (74-106) mg/dL Hemoglobin A1c (4.3-6.0) % Calcium (8.5-10.1) mg/dL Total Bilirubin (0.2-1.0) mg/dL AST (15-37) U/L ALT (10-53) U/L Alkaline Phosphatase (45-117) U/L Ammonia (11-32) mcmol/L Troponin I (0.02-0.05) ng/mL Total Protein (6.4-8.2) g/dL Albumin (3.4-5.0) g/dL Triglycerides (42-150) mg/dL Cholesterol (120-200) mg/dL LDL Cholesterol, Calc (0-99) mg/dL HDL Cholesterol (40.0-60.0) mg/dL Cholesterol/HDL Ratio Ratio 05/22/18 05/22/18 05/22/18 Range/Units 16:49 16:49 18:06 WBC (4.0-11.0) th/mm3 RBC (4.00-5.30) mil/mm3 Hgb (11.6-15.3) gm/dL POC Hgb (Calc) (11.6-15.3) g/dL Hct (35.0-46.0) % POC Hct (35-46.0) % MCV (80.0-100.0) fL MCH (27.0-34.0) pg MCHC (32.0-36.0) % RDW (11.6-17.2) % Plt Count (150-450) th/mm3 MPV (7.0-11.0) fL Neut % (Auto) (16.0-70.0) % Lymph % (Auto) (9.0-44.0) % Rhea % (Auto) (0.0-8.0) % Eos % (Auto) (0.0-4.0) % Baso % (Auto) (0.0-2.0) % Neut # (Auto) (1.8-7.7) th/mm3 Lymph # (Auto) (1.0-4.8) th/mm3 Rhea # (Auto) (0.0-0.9) th/mm3 Eos # (Auto) (0.0-0.4) th/mm3 Baso # (Auto) (0.0-0.2) th/mm3 WBC Differential Differential Comment PT (9.8-11.6) sec INR Ratio APTT (23.4-31.7) sec POC Sodium (137-144) mmol/L Sodium 139 (136-145) meq/L POC Potassium (3.6-5.0) mmol/L Potassium 4.2 (3.5-5.1) meq/L POC Chloride (102-111) mmol/L Chloride 103 (98-107) meq/L Carbon Dioxide 28.0 (21.0-32.0) meq/L Anion Gap 8 (5-15) meq/L POC BUN (5-21) mg/dL BUN 17 (7-18) mg/dL Creatinine 1.32 H (0.50-1.00) mg/dL POC Creatinine (0.6-1.3) mg/dL Estimated GFR 41 L (>89) mL/min POC Glucose 186 H (68-110) mg/dL Random Glucose 199 H (74-106) mg/dL Hemoglobin A1c (4.3-6.0) % Calcium 9.0 (8.5-10.1) mg/dL Total Bilirubin (0.2-1.0) mg/dL AST (15-37) U/L ALT (10-53) U/L Alkaline Phosphatase (45-117) U/L Ammonia 21 (11-32) mcmol/L Troponin I (0.02-0.05) ng/mL Total Protein (6.4-8.2) g/dL Albumin (3.4-5.0) g/dL Triglycerides (42-150) mg/dL Cholesterol (120-200) mg/dL LDL Cholesterol, Calc (0-99) mg/dL HDL Cholesterol (40.0-60.0) mg/dL Cholesterol/HDL Ratio Ratio 05/22/18 05/22/18 05/23/18 Range/Units 21:10 23:55 06:07 WBC (4.0-11.0) th/mm3 RBC (4.00-5.30) mil/mm3 Hgb (11.6-15.3) gm/dL POC Hgb (Calc) (11.6-15.3) g/dL Hct (35.0-46.0) % POC Hct (35-46.0) % MCV (80.0-100.0) fL MCH (27.0-34.0) pg MCHC (32.0-36.0) % RDW (11.6-17.2) % Plt Count (150-450) th/mm3 MPV (7.0-11.0) fL Neut % (Auto) (16.0-70.0) % Lymph % (Auto) (9.0-44.0) % Rhea % (Auto) (0.0-8.0) % Eos % (Auto) (0.0-4.0) % Baso % (Auto) (0.0-2.0) % Neut # (Auto) (1.8-7.7) th/mm3 Lymph # (Auto) (1.0-4.8) th/mm3 Rhea # (Auto) (0.0-0.9) th/mm3 Eos # (Auto) (0.0-0.4) th/mm3 Baso # (Auto) (0.0-0.2) th/mm3 WBC Differential Differential Comment PT (9.8-11.6) sec INR Ratio APTT (23.4-31.7) sec POC Sodium (137-144) mmol/L Sodium (136-145) meq/L POC Potassium (3.6-5.0) mmol/L Potassium (3.5-5.1) meq/L POC Chloride (102-111) mmol/L Chloride (98-107) meq/L Carbon Dioxide (21.0-32.0) meq/L Anion Gap (5-15) meq/L POC BUN (5-21) mg/dL BUN (7-18) mg/dL Creatinine (0.50-1.00) mg/dL POC Creatinine (0.6-1.3) mg/dL Estimated GFR (>89) mL/min POC Glucose 203 H 179 H 142 H (68-110) mg/dL Random Glucose (74-106) mg/dL Hemoglobin A1c (4.3-6.0) % Calcium (8.5-10.1) mg/dL Total Bilirubin (0.2-1.0) mg/dL AST (15-37) U/L ALT (10-53) U/L Alkaline Phosphatase (45-117) U/L Ammonia (11-32) mcmol/L Troponin I (0.02-0.05) ng/mL Total Protein (6.4-8.2) g/dL Albumin (3.4-5.0) g/dL Triglycerides (42-150) mg/dL Cholesterol (120-200) mg/dL LDL Cholesterol, Calc (0-99) mg/dL HDL Cholesterol (40.0-60.0) mg/dL Cholesterol/HDL Ratio Ratio 05/23/ Range/Units 09:35 WBC (4.0-11.0) th/mm3 RBC (4.00-5.30) mil/mm3 Hgb (11.6-15.3) gm/dL POC Hgb (Calc) (11.6-15.3) g/dL Hct (35.0-46.0) % POC Hct (35-46.0) % MCV (80.0-100.0) fL MCH (27.0-34.0) pg MCHC (32.0-36.0) % RDW (11.6-17.2) % Plt Count (150-450) th/mm3 MPV (7.0-11.0) fL Neut % (Auto) (16.0-70.0) % Lymph % (Auto) (9.0-44.0) % Rhea % (Auto) (0.0-8.0) % Eos % (Auto) (0.0-4.0) % Baso % (Auto) (0.0-2.0) % Neut # (Auto) (1.8-7.7) th/mm3 Lymph # (Auto) (1.0-4.8) th/mm3 Rhea # (Auto) (0.0-0.9) th/mm3 Eos # (Auto) (0.0-0.4) th/mm3 Baso # (Auto) (0.0-0.2) th/mm3 WBC Differential Differential Comment PT (9.8-11.6) sec INR Ratio APTT (23.4-31.7) sec POC Sodium (137-144) mmol/L Sodium (136-145) meq/L POC Potassium (3.6-5.0) mmol/L Potassium (3.5-5.1) meq/L POC Chloride (102-111) mmol/L Chloride (98-107) meq/L Carbon Dioxide (21.0-32.0) meq/L Anion Gap (5-15) meq/L POC BUN (5-21) mg/dL BUN (7-18) mg/dL Creatinine (0.50-1.00) mg/dL POC Creatinine (0.6-1.3) mg/dL Estimated GFR (>89) mL/min POC Glucose 159 H (68-110) mg/dL Random Glucose (74-106) mg/dL Hemoglobin A1c (4.3-6.0) % Calcium (8.5-10.1) mg/dL Total Bilirubin (0.2-1.0) mg/dL AST (15-37) U/L ALT (10-53) U/L Alkaline Phosphatase (45-117) U/L Ammonia (11-32) mcmol/L Troponin I (0.02-0.05) ng/mL Total Protein (6.4-8.2) g/dL Albumin (3.4-5.0) g/dL Triglycerides (42-150) mg/dL Cholesterol (120-200) mg/dL LDL Cholesterol, Calc (0-99) mg/dL HDL Cholesterol (40.0-60.0) mg/dL Cholesterol/HDL Ratio Ratio Imaging Data Radiologist's impression: Carotid Doppler Study 05/20/18 00:00 CONCLUSION: 1. Mild atherosclerotic plaquing seen at both carotid bifurcations. 2. No focal high-grade or hemodynamically significant stenosis is demonstrated. Head MRI 05/20/18 00:00 CONCLUSION: 1. There is a subtle area of apparent gliosis involving the right parietal lobe. 2. No acute hemorrhage, mass or evidence of acute infarction. Shoulder X-Ray 05/20/18 00:00 CONCLUSION: Negative right shoulder series. Head CT 05/20/18 15:01 CONCLUSION: No acute intracranial abnormalities seen. No areas of acute hemorrhage or mass effect are seen. Report was called by [Dr. Nash to Dr. Beal at 3:18 PM] Cervical Spine MRI 05/21/18 00:00 CONCLUSION: 1. Broad-based bulging with focal moderate disc protrusion at C6-7. 2. Mild broad-based bulging C3-4 and C5-6. 3. Mild grade 1 anterior spondylolisthesis of C5 over C6 by 2 mm. 4. Mild degenerative changes along with disc space narrowing at C5-6 and C6-7. Head MRA 05/21/18 00:00 CONCLUSION: 1. Unremarkable MRA of the brain. Lumbar Spine MRI 05/21/18 00:00 CONCLUSION: 1. Mild grade 1 anterior spondylolisthesis of L3 over L4. 2. There is broad-based bulging at multiple levels as described above. 3. 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 4. Focal mild spinal canal stenosis at L3-4. 5. 7 mm right synovial cyst at L4-5. Venous Doppler Study 05/21/18 00:00 CONCLUSION: 1. The study is negative for lower extremity deep venous thrombosis. Discharge Plan Discharge Disposition Patient Disposition: 30 Still Patient Discharge Condition Condition: Stable Discharge Details Anticipated Discharge Date: 05/23/18 Diagnosis: TIA (transient ischemic attack) Physicians Team ED Provider: Rosemary Beal Primary Care Provider: NON STAFF,PROVIDER Attending Provider: Ann Simpson Other Providers: Bernadette Marquez ; Dee Pro ; [employer] Status ED Status: Left Department Discharge Information Discharge Date/Time: 05/20/18 19:21
[2018-05-20] MEDS ORDERED: Acetaminophen 325 MG Tablet PO PRN (16:22)
--- NOTE | 2018-05-20 17:18 | P.HPIM ---
History of Present Illness Primary Care Physician: PROVIDER NON STAFF Chief Complaint: Falls History of Present Illness: The patient is a 62-year-old female with a past medical history of CAD, CHF, diabetes and chronic kidney disease who is presenting to the hospital after having a few falls at home. The patient went to sleep late after the football game and while getting up out of bed to try to go to the bathroom she fell down. She said she was feeling dizzy at the time and sort of just rolled out of bed. She is not sure if she lost consciousness or not. When she tried to get up she fell down again. She did hurt her right shoulder in the process. She also sustained a few injuries to her knees and wrists. Her felt like she had a change in her speech. He said somehow her speech sounds different. At times the patient would hold her right arm over her head and she was not sure why. She developed unintentional generalized twitching. The patient did have some shortness of breath associated with this and her home oxygen was increased by her . The patient says that about 6 or 7 years ago she had a similar situation of altered mental status and that was secondary to her kidney function getting worse. The patient says she does not typically fall down but she is weak and walks with a walker. She denies any chest pain or shortness of breath at this time. She does endorse chronic neuropathy. Review of Systems All other systems reviewed negative except as stated in [facility] - History History Provided By: Patient, Significant Other - Medical History Medical History: Medical History (Last Updated 05/20/18 @ 17:16 by Donnie Desouza DO) CAD (coronary artery disease) CHF (congestive heart failure) CKD (chronic kidney disease) COPD (chronic obstructive pulmonary disease) Diabetes mellitus Endometrial cancer HLD (hyperlipidemia) Hypotension Myocardial infarct, old MARIE (obstructive sleep apnea) PAD (peripheral artery disease) Renal failure - Surgical History Surgical History: Surgical History (Last Updated 05/20/18 @ 17:17 by Donnie Desouza DO) History of Achilles tendon repair History of appendectomy Hx of CABG Hx of tonsillectomy Hx of total hysterectomy - Family History Family History: Family History (Last Updated 05/20/18 @ 17:17 by Donnie Desouza DO) Other CHF (congestive heart failure) CVA (cerebral vascular accident) - Social History I have reviewed the patient's Social History: Yes - Tobacco History Second Hand Smoke Exposure: No Tobacco Use In Past 30 Days: No Smoking Status: Former smoker - Alcohol History How Often Do You Have a Drink Containing Alcohol: Monthly or less - Substance Use History Substance History: No History of Abuse - Travel History Recent Travel in the [place] Within the Last 8 Weeks: No Recent Travel Out of the Country Within the Last 8 Weeks: No - Immunization History Tetanus Immunization: Unsure Medications and Allergies Active Medications: Active Medications Acetaminophen (Tylenol) 650 mg PO Q4H PRN PRN Reason: Temp > 100.4 Lipase/Protease/Amylase (Milena Ren ) 6 cap PO TID MARNIE Aspirin (Aspirin Chew) 81 mg PO DAILY MARNIE Atorvastatin Calcium (Lipitor) 80 mg PO DAILY MARNIE Duloxetine HCl (Cymbalta) 60 mg PO DAILY MARNIE Ferrous Sulfate (Ferosul) 325 mg PO BID MARNIE Heparin Sodium (Porcine) (Heparin Inj) 5,000 units SQ Q8H MARNIE Metoprolol Tartrate (Lopressor) 50 mg PO BID MARNIE Pantoprazole Sodium (Protonix) 20 mg PO DAILY MARNIE Ropinirole HCl (Requip) 2 mg PO TID MARNIE Senna/Docusate Sodium (Rachana-Colace) 1 tab PO BID MARNIE Sodium Chloride (Ns Flush) 2 ml IV.FLUSH BID MARNIE Sodium Chloride (Ns Flush) 2 ml IV.FLUSH PRN PRN PRN Reason: FLUSH AFTER USING IV ACCESS Allergies Allergy/AdvReac Type Severity Reaction Status Date / Time losartan Allergy Severe Unverified 08/13/17 08:38 olmesartan Allergy Severe Unverified 08/13/17 08:38 Home Medications Medication Instructions Recorded Confirmed Type allopurinol 300 mg PO DAILY 05/20/18 05/20/18 History alprazolam 1 mg PO BID 05/20/18 05/20/18 History aspirin 81 mg PO DAILY 05/20/18 05/20/18 History bethanechol chloride 12.5 mg PO QID 05/20/18 05/20/18 History duloxetine [Cymbalta] 60 mg PO DAILY 05/20/18 05/20/18 History ferrous sulfate 325 mg PO BID 05/20/18 05/20/18 History gabapentin [Neurontin] 800 mg PO DAILY 05/20/18 05/20/18 History insulin aspart U-100 [Novolog 1 sliding scale dose SUBCUT AC 05/20/18 05/20/18 History U-100 Insulin aspart] insulin detemir U-100 [Levemir 60 unit SUBCUT BID 05/20/18 05/20/18 History U-100 Insulin] [id number] [Creon] 2 cap PO TID 05/20/18 05/20/18 History metformin 1,000 mg PO BID 05/20/18 05/20/18 History metoprolol tartrate 50 mg PO BID 05/20/18 05/20/18 History omeprazole 20 mg PO DAILY 05/20/18 05/20/18 History oxycodone-acetaminophen [Percocet] 1 tab PO Q6H PRN 05/20/18 05/20/18 History ropinirole 2 mg PO TID 05/20/18 05/20/18 History rosuvastatin 40 mg PO DAILY 05/20/18 05/20/18 History spironolactone 50 mg PO DAILY 05/20/18 05/20/18 History tizanidine 4 mg PO TID 05/20/18 05/20/18 History torsemide 20 mg PO BID 05/20/18 05/20/18 History Exam Vital signs: Vital Signs 05/20/18 14:39 05/20/18 15:00 05/20/18 16:04 Temperature 98.1 F Pulse Rate 82 73 Respiratory Rate 22 22 19 Blood Pressure 128/93 H 165/80 H 148/58 H Pulse Oximetry 97 97 Intake & Output 05/19/18 05/20/18 05/20/18 18:59 06:59 18:59 Weight 113.398 kg Narrative: GENERAL: No distress. SKIN: Focused skin assessment warm/dry. Bruising noted on knees and wrists. HEAD: Atraumatic. Normocephalic. EYES: Pupils equal and round. No scleral icterus. No injection or drainage. ENT: No nasal bleeding or discharge. Mucous membranes pink and moist. NECK: Trachea midline. No JVD. CARDIOVASCULAR: Regular rate and rhythm. No murmur appreciated. RESPIRATORY: No accessory muscle use. Clear to auscultation. Breath sounds equal bilaterally. GASTROINTESTINAL: Abdomen soft, non-tender, nondistended. MUSCULOSKELETAL: Tenderness to palpation of right shoulder joint. No obvious deformities. No clubbing. No cyanosis. No edema. NEUROLOGICAL: Awake and alert. No obvious cranial nerve deficits. Strength 5/5 in upper extremities, 4/5 in lower extremities. Normal speech. Results - Labs CBC & Chem 7: 05/20/18 15:00 05/20/18 15:00 Labs: Short CBC 05/20/18 Range/Units 15:00 WBC 14.8 H (4.0-11.0) th/mm3 Hgb 11.9 (11.6-15.3) gm/dL Hct 35.5 (35.0-46.0) % Plt Count 371 (150-450) th/mm3 BMP 05/20/18 15:00 Sodium 139 Potassium 5.1 Chloride 102 Carbon Dioxide 21.5 BUN 36 H Creatinine 2.48 H Calcium 8.9 - Imaging Impressions Head CT 05/20/18 15:01 CONCLUSION: No acute intracranial abnormalities seen. No areas of acute hemorrhage or mass effect are seen. Report was called by [Dr. Nash to Dr. Beal at 3:18 PM] Caprini VTE Risk Assessment Caprini VTE Risk Assessment: Moderate/High Risk (score >= 2) Caprini Risk Assessment Model: Point Value = 1 Point Value = 2 Point Value = 3 Point Value = 5 Age 41-60 Minor surgery BMI > 25 kg/m2 Swollen legs Varicose veins or History of unexplained or recurrent spontaneous Oral contraceptives or hormone replacement Sepsis (< 1 month) Serious lung disease, including pneumonia (< 1 month) Abnormal pulmonary function Acute myocardial infarction Congestive heart failure (< 1 month) History of inflammatory bowel disease Medical patient at bed rest Age 61-74 Arthroscopic surgery Major open surgery (> 45 min) Laparoscopic surgery (> 45 min) Malignancy Confined to bed (> 72 hours) Immobilizing plaster cast Central venous access Age >= 75 History of VTE Family history of VTE Factor V Leiden Prothrombin [id number] Lupus anticoagulant Anticardiolipin antibodies Elevated serum homocysteine Heparin-induced thrombocytopenia Other congenital or acquired thrombophilia Stroke (< 1 month) Elective arthroplasty Hip, pelvis, or leg fracture Acute spinal cord injury (< 1 month) Prophylaxis Regimen: Total Risk Factor Score Risk Level Prophylaxis Regimen 0-1 Low Early ambulation 2 Moderate Order ONE of the following: *Sequential Compression Device (SCD) *Heparin 5000 units SQ BID 3-4 Higher Order ONE of the following medications: *Heparin 5000 units SQ TID *Enoxaparin/Lovenox 40 mg SQ daily (WT < 150 kg, CrCl > 30 mL/min) *Enoxaparin/Lovenox 30 mg SQ daily (WT < 150 kg, CrCl > 10-29 mL/min) *Enoxaparin/Lovenox 30 mg SQ BID (WT < 150 kg, CrCl > 30 mL/min) AND/OR *Sequential Compression Device (SCD) 5 or more Highest Order ONE of the following medications: *Heparin 5000 units SQ TID (Preferred with Epidurals) *Enoxaparin/Lovenox 40 mg SQ daily (WT < 150 kg, CrCl > 30 mL/min) *Enoxaparin/Lovenox 30 mg SQ daily (WT < 150 kg, CrCl > 10-29 mL/min) *Enoxaparin/Lovenox 30 mg SQ BID (WT < 150 kg, CrCl > 30 mL/min) AND *Sequential Compression Device (SCD) Assessment and Plan - Plan Acute metabolic encephalopathy The pt had two falls, speech disturbances and jerks in her upper and lower extremities. Possibly s/t sedating meds in the setting of acute on chronic renal failure. CT head unremarkable. -check MRI brain and carotid US. -continue ASA and statin. -EEG pending. -trend trops and check an EKG. -check a lipid profile. -PT/OT/ST. -case management consult for home health care. Acute on chronic renal failure Likely exacerbated by diuretics. -hold diuretics and avoid nephrotoxins. -gentle IVFs in the setting history of CHF. DM On insulin as an outpt. -insulin sliding scale. -Levemir 20 units HS. Adjust as needed. -check an A1c level. MARIE On BiPAP as an outpt. -continue BiPAP. -oxygen and nebs as needed. On home oxygen at home. PPx: Heparin Code Status: Full
[2018-05-20] MEDS ORDERED: Dextrose 50% in Water 50 ML Vial IV.PUSH PRN (17:24)
--- NOTE | 2018-05-20 17:52 | XR ---
EXAM DATE: 05/20/2018 5:50 PM EST AGE/SEX: 62 years / Female INDICATIONS: Right shoulder pain. Fall. CLINICAL DATA: This is the patient's initial encounter. Patient reports that signs and symptoms have been present for 2 days and indicates a pain score of 3/10. MEDICAL/SURGICAL HISTORY: . : Hypertension. Chronic obstructive pulmonary disease. Myocardial i nfarction. Diabetes and endometrial cancer. . Tubal ligation. Hysterectomy. Tonsillectomy. CABG COMPARISON: No prior exams available for comparison. FINDINGS: Bony structures are intact and in normal alignment. Joints are intact without dislocation or signifi cant arthropathy. Osseous density is normal. Soft tissues are unremarkable. The patient is status p ost sternotomy. CONCLUSION: Negative right shoulder series. Electronically signed by: Cedric Nash MD 05/20/2018 5:51 PM EST
[2018-05-20] MEDS: Insulin NovoLOG Aspart Correctional Sugar Inj SQ SCH (18:43)
[2018-05-20] MEDS: Heparin - SQ 10,000 UNITS/ML Vial SQ SCH (18:43)
[2018-05-20 18:56] LABS: Chol/HDL Ratio 2.74 Ratio; HDL Cholesterol 35.4 mg/dL (40.0-60.0)
[2018-05-20] MEDS: Sodium Chloride 0.45 % Inj 1,000 ML IV.CONT SCH (19:01)
--- NOTE | 2018-05-20 19:25 | US ---
EXAM DATE: 05/20/2018 7:20 PM EST AGE/SEX: 62 years / Female INDICATIONS: Cerebrovascular accident. CLINICAL DATA: This is the patient's initial encounter. Patient reports that signs and symptoms have been present for 1 day and indicates a pain score of 0/10. MEDICAL/SURGICAL HISTORY: Congestive heart failure. Chronic obstructive pulmonary disease. Cor onary artery disease. Chronic kidney disease. Diabetes. Endometrial cancer. Hyperlipidemia. Hypotensi on. Myocardial infarction. Sleep apnea. Peripheral arterial disease. Appendectomy. CABG. Tonsillec paulie. Achilles tendon repair. Hysterectomy. COMPARISON: No prior exams available for comparison. VELOCITY PARAMETERS: ICA/CCA Ratio: Right 1.3 , Left 1.2 ICA: Right 164 cm/sec, Left 136 cm/sec CCA: Right 127 cm/sec, Left 108 cm/sec ECA: Right 165 cm/sec, Left 135 cm/sec Vertebral: Right 40 cm/sec antegrade, Left . cm/sec antegrade FINDINGS: Right Carotid: Mild arteriosclerotic plaque is visualized.The waveforms are within normal limits. Left Carotid: Mild atherosclerotic plaque is visualized. The waveforms are within normal limits. Other: None. CONCLUSION: 1. Mild atherosclerotic plaquing seen at both carotid bifurcations. 2. No focal high-grade or hemodynamically significant stenosis is demonstrated. Electronically signed by: Jose Melendrez MD 05/20/2018 7:23 PM EST
--- NOTE | 2018-05-20 22:40 | MR ---
EXAM DATE: 05/20/2018 10:32 PM EST AGE/SEX: 62 years / Female INDICATIONS: CVA. Slurred speech for one day. CLINICAL DATA: This is the patient's initial encounter. Patient reports that signs and symptoms have been present for 1 day and indicates a pain score of 4/10. MEDICAL/SURGICAL HISTORY: Carcinoma, uterine. Diabetes mellitus type II. Hypertension. Hyster ectomy. Appendectomy. Carotid stent. CABG. COMPARISON: POI, MR BRAIN W/O CONTRAST, 11/05/2016. . TECHNIQUE: Multiplanar, multisequence examination of the brain was performed without contrast. FINDINGS: Cerebrum: The ventricles are normal for age. No evidence of midline shift, mass lesion, hemorrhage or acute infarction. There is a small apparent area of gliosis involving the right parietal lobe best seen on FLAIR-weighted image #14. No extraaxial fluid collections are seen. The pituitary gland and suprasellar cistern are normal in configuration. White Matter: No significant signal abnormalities are seen in the white matter. Posterior Fossa: The cerebellum and brainstem are intact. The 4th ventricle is midline. The cerebel lopontine angle is unremarkable. The cerebellar tonsils are normal in position. Diffusion Imaging: No focal areas of restricted diffusion are seen. No evidence of acute infarction . Extracranial: The visualized portions of the orbits and paranasal sinuses are unremarkable. CONCLUSION: 1. There is a subtle area of apparent gliosis involving the right parietal lobe. 2. No acute hemorrhage, mass or evidence of acute infarction. Electronically signed by: Donnie Wells MD 05/20/2018 10:39 PM EST
[2018-05-21] MEDS: Lipase/Protease/Amylase 12/38/60 DR Capsule PO SCH ×4 (00:03→17:40)
[2018-05-21] MEDS: Metoprolol Tartrate 50 MG Tablet PO SCH ×3 (00:05→20:46)
[2018-05-21] MEDS: Ferrous Sulfate 325 MG Tablet PO SCH ×4 (00:05→20:45)
[2018-05-21] MEDS: Insulin Detemir Inj 1,000 UNIT/10 ML Vial SQ SCH ×2 (00:07→20:51)
[2018-05-21] MEDS: Heparin - SQ 10,000 UNITS/ML Vial SQ SCH ×3 (00:07→17:42)
[2018-05-21] MEDS: Insulin NovoLOG Aspart Correctional Sugar Inj SQ SCH ×4 (00:07→17:42)
[2018-05-21] MEDS: Senna/Docusate Sodium 8.6/50 MG Tablet PO SCH ×3 (01:10→20:47)
--- NOTE | 2018-05-21 08:40 | P.PN ---
Subjective Interval history: Follow up on patient with acute metabolic encephalopathy s/p fall x 2 at home. Patient seen and examined. Patient complains of sensation of pieces of glass in both eyes and she is worried some of the glass from the mirror she fell into may have flown into her eyes. She reports seeing halos and lines and having decreased vision. She says she is having a difficult time recalling words. She denies any headache or dizziness. She also says she has a sensation of pieces of glass in both fingertips. She feels the weakness in her right arm is slightly improved but now has new weakness in the left upper extremity. She continues to have intermittent jerking of her whole body though not as pronounced as before admission. She is not sure if she has been incontinent of urine. She denies any seizure history. She denies hx of MS. She has a hx of chronic back pain and neuropathy with multiple level disc disease and was recommended a fusion in the past but was unable to have done due to heart issues. She complains of progressive hoarseness, sensation of something being stuck in her throat and mild difficulty swallowing. She denies any new weakness in her legs. She reports stinging pain in the right groin running down the front of the leg to the knee and sensation of snake crawling on the LLE. She denies any chest pain. She denies any N/V or abdominal pain. She complains of painful right knee where she fell. She says she has had a TIA in the past. Physical Exam Vital signs: Vital Signs 05/20/18 14:39 05/20/18 15:00 05/20/18 16:04 Temperature 98.1 F Pulse Rate 82 73 Respiratory Rate 22 22 19 Blood Pressure 128/93 H 165/80 H 148/58 H Pulse Oximetry 97 97 05/20/18 17:00 05/20/18 20:00 05/21/18 00:00 Temperature 98.3 F 98.7 F Pulse Rate 72 77 80 Respiratory Rate 19 18 18 Blood Pressure 135/56 L 129/69 150/65 H Pulse Oximetry 100 93 L 05/21/18 04:00 05/21/18 07:38 05/21/18 07:41 Temperature 98.5 F 98.4 F Pulse Rate 71 116 H 68 Respiratory Rate 16 20 Blood Pressure 118/57 L 140/63 Pulse Oximetry 91 L 90 L Intake & Output 05/20/18 05/21/18 05/21/18 18:59 06:59 18:59 Intake Total 480 / 480 Balance 480 / 480 Weight 113.398 kg Intake: Oral 480 / 480 Other: # Voids 1 # Urine Diapers 1 Date of Last Bowel Movement 05/20/18 # Bowel Movements 0 Narrative: GENERAL: WDWN obese female patient, in no acute distress. Awake and alert. Mildly tremulous in the bed. SKIN: Warm and dry. No rash. Ecchymosis noted on bilateral knees. Multiple small superficial cuts on toes of both feet. No cuts or scrapes noted over bilateral fingertips. HEAD: Normocephalic. EYES: Pupils equal and round. EOMI. No scleral icterus. Bilateral sclera erythematous L>R with yellowish mucoid discharge noted. ENT: No nasal bleeding or discharge. Mucous membranes pink and moist. NECK: Trachea midline. CARDIOVASCULAR: Regular rate and rhythm. +Murmur auscultated. RESPIRATORY: No accessory muscle use. Clear to auscultation. Breath sounds equal bilaterally. GASTROINTESTINAL: Abdomen soft, non-tender, nondistended. +BS. MUSCULOSKELETAL: Extremities without clubbing, cyanosis. +Trace BLE edema R>L. Right calf larger than left. No obvious deformities. NEUROLOGICAL: Awake and alert. No obvious cranial nerve deficits. Able to move all extremities. Slightly weakened right edi architect strength. Bilateral lower extremity strength 4/5. Hoarse speech. PSYCHIATRIC: Appropriate mood and affect; insight and judgment normal. h. Results - Labs CBC & Chem 7: 05/21/18 07:30 05/20/18 15:00 Laboratory Results - last 24 hr 05/20/18 05/20/18 05/20/18 15:00 15:00 15:00 WBC 14.8 H RBC 3.60 L Hgb 11.9 POC Hgb (Calc) 12.6 Hct 35.5 POC Hct 37.0 MCV 98.5 MCH 32.9 MCHC 33.4 RDW 14.8 Plt Count 371 MPV 8.4 Neut % (Auto) 82.7 H Lymph % (Auto) 11.3 [place] % (Auto) 5.0 Eos % (Auto) 0.3 Baso % (Auto) 0.7 Neut # (Auto) 12.3 H Lymph # (Auto) 1.7 [place] # (Auto) 0.7 Eos # (Auto) 0.0 Baso # (Auto) 0.1 WBC Differential . Differential Comment Auto diff final PT 10.8 INR 1.1 APTT 23.3 L POC Sodium 141 Sodium 139 POC Potassium 5.1 H Potassium 5.1 POC Chloride 104 Chloride 102 Carbon Dioxide 21.5 Anion Gap 16 H POC BUN 35 H BUN 36 H Creatinine 2.48 H POC Creatinine 2.2 H Estimated GFR 20 L POC Glucose 225 H Random Glucose 221 H Calcium 8.9 Troponin I Triglycerides Cholesterol LDL Cholesterol, Calc HDL Cholesterol Cholesterol/HDL Ratio 05/20/18 05/20/18 05/20/18 15:00 15:05 18:22 WBC RBC Hgb POC Hgb (Calc) Hct POC Hct MCV MCH MCHC RDW Plt Count MPV Neut % (Auto) Lymph % (Auto) [place] % (Auto) Eos % (Auto) Baso % (Auto) Neut # (Auto) Lymph # (Auto) [place] # (Auto) Eos # (Auto) Baso # (Auto) WBC Differential Differential Comment PT INR APTT POC Sodium Sodium POC Potassium Potassium POC Chloride Chloride Carbon Dioxide Anion Gap POC BUN BUN Creatinine POC Creatinine Estimated GFR POC Glucose 214 H 167 H Random Glucose Calcium Troponin I Triglycerides 264 H Cholesterol 97 L LDL Cholesterol, Calc 9 HDL Cholesterol 35.4 L Cholesterol/HDL Ratio 2.74 05/20/18 05/20/18 05/21/18 18:45 23:36 00:32 WBC RBC Hgb POC Hgb (Calc) Hct POC Hct MCV MCH MCHC RDW Plt Count MPV Neut % (Auto) Lymph % (Auto) [place] % (Auto) Eos % (Auto) Baso % (Auto) Neut # (Auto) Lymph # (Auto) [place] # (Auto) Eos # (Auto) Baso # (Auto) WBC Differential Differential Comment PT INR APTT POC Sodium Sodium POC Potassium Potassium POC Chloride Chloride Carbon Dioxide Anion Gap POC BUN BUN Creatinine POC Creatinine Estimated GFR POC Glucose 190 H Random Glucose Calcium Troponin I Less than 0.02 L Less than 0.02 L Triglycerides Cholesterol LDL Cholesterol, Calc HDL Cholesterol Cholesterol/HDL Ratio 05/21/18 05:17 WBC RBC Hgb POC Hgb (Calc) Hct POC Hct MCV MCH MCHC RDW Plt Count MPV Neut % (Auto) Lymph % (Auto) [place] % (Auto) Eos % (Auto) Baso % (Auto) Neut # (Auto) Lymph # (Auto) [place] # (Auto) Eos # (Auto) Baso # (Auto) WBC Differential Differential Comment PT INR APTT POC Sodium Sodium POC Potassium Potassium POC Chloride Chloride Carbon Dioxide Anion Gap POC BUN BUN Creatinine POC Creatinine Estimated GFR POC Glucose 176 H Random Glucose Calcium Troponin I Triglycerides Cholesterol LDL Cholesterol, Calc HDL Cholesterol Cholesterol/HDL Ratio - Imaging Impressions Carotid Doppler Study 05/20/18 00:00 CONCLUSION: 1. Mild atherosclerotic plaquing seen at both carotid bifurcations. 2. No focal high-grade or hemodynamically significant stenosis is demonstrated. Head MRI 05/20/18 00:00 CONCLUSION: 1. There is a subtle area of apparent gliosis involving the right parietal lobe. 2. No acute hemorrhage, mass or evidence of acute infarction. Shoulder X-Ray 05/20/18 00:00 CONCLUSION: Negative right shoulder series. Head CT 05/20/18 15:01 CONCLUSION: No acute intracranial abnormalities seen. No areas of acute hemorrhage or mass effect are seen. Report was called by [Dr. Nash to Dr. Beal at 3:18 PM] Assessment and Plan - Plan 62-year-old female with a past medical history of CAD, CHF, diabetes and chronic kidney disease who is presenting to the hospital after having a few falls at home. Acute metabolic encephalopathy The pt had two falls, speech disturbances and jerks in her upper and lower extremities. Possibly s/t sedating meds in the setting of acute on chronic renal failure. No hx of seizure disorder No hx of MS CT head unremarkable MR Brain +small area of gliosis right parietal lobe. Hx of "TIA" in the past. Carotid US neg for hemodynamically significant stenosis -EEG pending -continue ASA and statin. -Consult Neurology, appreciate assistance. -PT/OT/ST ordered -case management consult for home health care. -seizure precautions Sensation of glass in fingertips of both hands Sensation of sharp stinging pain in right groin and leg to knee Sensation of snake crawling down left leg Hx of chronic LBP with multiple level DDD Hx of chronic BLE neuropathy -Obtain MR cervical and lumbar spine - r/o significant stenosis/disc herniation/ compression contributing to sxs -Fall precautions -continue on pain mediations per home regimen. Gabapentin on hold due to concern may be contributing to encephalopathy Sensation of glass in bilateral eyes Eye exam suggestive of conjunctivitis patient concerned she has pieces of glass in both eyes with seeing halos and lines and decreased vision. Patient did fall into a glass mirror shattering it and then fell multiple times while trying to get up -Consult ophthalmology, appreciate assistance -Begin Cipro gtts bilateral eyes and monitor for improvement -patient advised not to rub her eyes CAD hx of NH in October s/p stents x 7 patient had complaints of mid retrosternal chest pain after turning over in bed , reproducible to touch that has now resolved Trops neg x 3 -continue to monitor on telemetry -continue on Lopressor Acute on chronic renal failure, resolving Likely exacerbated by diuretics. Creatinine improved from 2.48 to 1.48 with IVF -hold diuretics and avoid nephrotoxins. -gentle IVFs in the setting history of CHF. Dysphagia Sensation of something being stuck in her throat -Consult speech therapy for swallow evaluation -NPO for now. Continue on IVF. DM On insulin as an outpt. -insulin sliding scale. -Levemir 20 units HS. Adjust as needed. -check an A1c level - pending Chronic respiratory insufficiency MARIE On BiPAP as an outpt. -continue BiPAP. -oxygen and nebs as needed. On home oxygen at home. RLE edema right calf larger than left, chronic ppr hx of DVT LLE in her 20s while on control -obtain doppler RLE to r/o DVT PPx: Heparin Discussed Condition With: patient, nursing staff, Dr. Simpson Discharge Planning: Not ready for discharge
[2018-05-21 08:44] LABS: Baso # (Auto) 0.1 th/mm3 (0.0-0.2); Baso % (Auto) 0.8 % (0.0-2.0); Eos # (Auto) 0.1 th/mm3 (0.0-0.4); Hematocrit 31.6 % (35.0-46.0); Hemoglobin 10.5 gm/dL (11.6-15.3); Lymph # (Auto) 2.3 th/mm3 (1.0-4.8); Mean Corpuscular HGB Conc 33.3 % (32.0-36.0); Mean Corpuscular Hemoglobin 32.6 pg (27.0-34.0); Mean Corpuscular Volume 97.7 fL (80.0-100.0); Mean Platelet Volume 8.4 fL (7.0-11.0); Mono # (Auto) 0.6 th/mm3 (0.0-0.9); Mono % (Auto) 6.5 % (0.0-8.0); Neut # (Auto) 5.9 th/mm3 (1.8-7.7); Neut % (Auto) 65.7 % (16.0-70.0); Platelet Count 276 th/mm3 (150-450); Red Blood Count 3.24 mil/mm3 (4.00-5.30); Red Cell Distribution Width 14.9 % (11.6-17.2)
[2018-05-21 09:09] LABS: Alanine Aminotransferase 24 U/L (10-53); Albumin 3.4 g/dL (3.4-5.0); Alkaline Phosphatase 97 U/L (45-117); Anion Gap 8 meq/L (5-15); Aspartate Aminotransferase 35 U/L (15-37); Blood Urea Nitrogen 24 mg/dL (7-18); Calcium 9.1 mg/dL (8.5-10.1); Carbon Dioxide 26.3 meq/L (21.0-32.0); Chloride 106 meq/L (98-107); Glomerular Filtration Rate 36 mL/min (>89); Glucose,Random 145 mg/dL (74-106); Potassium 3.9 meq/L (3.5-5.1); Sodium 140 meq/L (136-145); Total Protein 7.1 g/dL (6.4-8.2)
[2018-05-21] MEDS: Duloxetine 60 MG DR Capsule PO SCH (09:28)
[2018-05-21] MEDS: Pantoprazole Sodium 20 MG DR Tablet PO SCH (09:30)
--- NOTE | 2018-05-21 10:50 | MR ---
EXAM DATE: 05/21/2018 10:25 AM EST AGE/SEX: 62 years / Female INDICATIONS: Radiculopathy. Shaking, falling. CLINICAL DATA: This is the patient's initial encounter. Patient reports that signs and symptoms have been present for 2 days and indicates a pain score of 3/10. MEDICAL/SURGICAL HISTORY: Anemia. Chronic obstructive pulmonary disease. Diabetes mellitus ty pe II. Endometrial carcinoma. CABG. Hysterectomy. Tonsillectomy. COMPARISON: No prior exams available for comparison. TECHNIQUE: Multiplanar, multisequence MRI examination of the cervical spine was performed without co ntrast. FINDINGS: Vertebrae: Normal vertebral body height. Homogeneous marrow signal. There are some degenerative maynor nges involving the mid to lower cervical spine. There is some disc space narrowing at C5-6 and C6-7. Alignment: Mild grade 1 anterior spondylolisthesis of C5 over C6 by 2 mm. Cord: Normal configuration and signal. Post Fossa: The cerebellar tonsils are normal in position. C2-C3: The thecal sac has a normal configuration. There is no evidence of disc herniation or spinal canal stenosis. The neural foramina are patent bilaterally. C3-C4: Mild broad-based bulging. The neural foramina are patent bilaterally. C4-C5: The thecal sac has a normal configuration. There is no evidence of disc herniation or spinal canal stenosis. The neural foramina are patent bilaterally. Mild bilateral facet arthritis. C5-C6: Mild broad-based bulging. The neural foramina are patent bilaterally. Mild facet arthritis. C6-C7: Broad-based bulging and Focal moderate central disc protrusion. The neural foramina are paten t bilaterally. Mild facet arthritis. C7-T1: No epidural impressions seen. CONCLUSION: 1. Broad-based bulging with focal moderate disc protrusion at C6-7. 2. Mild broad-based bulging C3-4 and C5-6. 3. Mild grade 1 anterior spondylolisthesis of C5 over C6 by 2 mm. 4. Mild degenerative changes along with disc space narrowing at C5-6 and C6-7. Electronically signed by: Jose Melendrez MD 05/21/2018 10:48 AM EST
--- NOTE | 2018-05-21 11:01 | MR ---
EXAM DATE: 05/21/2018 10:50 AM EST AGE/SEX: 62 years / Female INDICATIONS: Radiculopathy. Shaking, falling. CLINICAL DATA: This is the patient's initial encounter. Patient reports that signs and symptoms have been present for 2 days and indicates a pain score of 3/10. MEDICAL/SURGICAL HISTORY: Anemia. Diabetes mellitus type II. Chronic obstructive pulmonary di sease. Endometrial carcinoma. CABG. Hysterectomy. Appendectomy. Tonsils COMPARISON: No prior exams available for comparison. TECHNIQUE: Multiplanar, multisequence MRI of the lumbar spine was performed without contrast. Patie nt was scanned in a sitting position; neutral, flexion, and extension scans were performed in the sa gittal plane. FINDINGS: Vertebra: Homogeneous signal. Normal alignment. No compression fracture injuries are demonstrated. No abnormal bone marrow edema is demonstrated. There is mild grade 1 anterior spondylolisthesis of L3 over L4. Conus: Normal level and configuration. T12-L1: The thecal sac has a normal diameter. No evidence of disc bulge or protrusion. The neural foramina are patent bilaterally. L1-L2: The thecal sac has a normal diameter. No evidence of disc bulge or protrusion. The neural foramina are patent bilaterally. L2-L3: The thecal sac has a normal diameter. No evidence of disc bulge or protrusion. The neural foramina are patent bilaterally. L3-L4: Mild diffuse broad-based bulging with some narrowing of the neural foramina bilaterally, rig ht greater than left. There is bilateral facet arthritis. There is hypertrophy ligamentum flavum. Thi s causing some focal mild spinal canal stenosis. L4-L5: Diffuse broad-based bulging with some narrowing of the neural foramina bilaterally, left gre ater than right. There is prominent bilateral facet arthritis. There is a small synovial cyst on the right side associated with the right facet joint. The synovial cyst measures 7 mm in diameter. L5-S1: Mild diffuse broad-based bulging with some narrowing of the neural foramina bilaterally. The re is bilateral facet arthritis. CONCLUSION: 1. Mild grade 1 anterior spondylolisthesis of L3 over L4. 2. There is broad-based bulging at multiple levels as described above. 3. 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 4. Focal mild spinal canal stenosis at L3-4. 5. 7 mm right synovial cyst at L4-5. Electronically signed by: Jose Melendrez MD 05/21/2018 11:00 AM EST
[2018-05-21] MEDS: Sodium Chloride 0.45 % Inj 1,000 ML IV.CONT SCH (11:15)
--- NOTE | 2018-05-21 12:12 | MR ---
EXAM DATE: 05/21/2018 12:08 PM EST AGE/SEX: 62 years / Female INDICATIONS: Slurred speech. CLINICAL DATA: This is the patient's initial encounter. Patient reports that signs and symptoms have been present for 2 days and indicates a pain score of 0/10. MEDICAL/SURGICAL HISTORY: Carcinoma, uterine. Diabetes mellitus type II. Chronic obstructive pulmonary disease. CABG. Hysterectomy. Tonsillectomy. COMPARISON: [facility] [place]/2018. . TECHNIQUE: 3D [id number] MRA was performed. Source images, multiplanar STS MIP, and 3D volum e MIP reconstructions were reviewed. FINDINGS: There is excellent visualization of the major intracranial arteries out to the second-order branch ve ssels. There is no evidence for aneurysm, vessel truncation or stenosis, and no evidence for vascula r malformation. There are bilateral patent posterior communicating arteries. CONCLUSION: 1. Unremarkable MRA of the brain. Electronically signed by: Jose Melendrez MD 05/21/2018 12:11 PM EST
[2018-05-21] MEDS: Ciprofloxacin 0.3% Opth Drops 5 ML Bottle EACH EYE SCH ×7 (12:34→22:21)
[2018-05-21 12:46] LABS: Hemoglobin A1c 8.5 % (4.3-6.0)
--- NOTE | 2018-05-21 12:59 | ECG ---
Date Performed: 05/20/2018 Time Performed: 14:57:14 PTAGE: 62 years EKG: SUPRAVENTRICULAR RHYTHM NONSPECIFIC T-WAVE ABNORMALITY BORDERLINE ECG Since the PREVIOUS TRACING , no significant change noted PREVIOUS TRACIN10/24/2017 04.11 DOCTOR: Cornell Rodrigez Interpretating Date/Time 05/21/2018 12:57:18
--- NOTE | 2018-05-21 13:19 | MB ---
cc: Bernadette Marquez MD DATE: 05/21/2018 REASON FOR CONSULTATION: Fall, dizziness and weakness. HISTORY OF PRESENT ILLNESS: This is a 62-year-old woman with history of coronary artery disease, CHF, diabetes, chronic kidney disease, who came in after she fell at home and broke a mirror. Apparently she was getting out of bed after a nap late in the afternoon; wanted to go to the bathroom and fell down; some dizziness, not sure if she got out of bed too quickly. There is no real report of loss of consciousness. She tried to get up again and fell again, hurt her knees, broke the mirror, there was glass everywhere, she stated. There may have been some questionable change in her speech, per her 's recollection. To the ED staff and to the hospitalist, speech is back to normal. Currently, she has no weakness, numbness, tingling. Pain in the knees from the fall. PAST MEDICAL HISTORY: As stated. She also has COPD. She uses BiPAP at home. She has a history of peripheral arterial disease, MARIE. PAST SURGICAL HISTORY: Achilles tendon repair, bypass, tonsillectomy, hysterectomy, appendectomy. FAMILY HISTORY: Heart disease, stroke. SOCIAL HISTORY: Former smoker, rarely drinks. No illicit drugs. PHYSICAL EXAMINATION: VITAL SIGNS: Temperature is 98.4, pulse 68, respiratory rate 20, blood pressure 140/63, blood pressure on admission was 128/93, her pulse on admission was 68. NECK: Supple. I do not hear any carotid bruits. HEART: Regular. NEUROLOGIC: She is awake, alert. She is fluent. Pupils reactive. Visual montoya are full. Face is symmetrical. Tongue midline. Motor: There is no drift. She is sitting at edge of bed. No truncal ataxia. I do not see any weakness in the legs, 1+ DTRs upper: I am not able to check lowers. She has pain in both knees from her fall. Cerebellar is normal. Gait: Did not test for safety reasons. She has a walker at bedside. Toes are neutral. LABORATORY DATA: White count 9, yesterday was 14.8, hemoglobin 10.5, platelets 276,000. PTT 23.3. Chemistries: GFR today is 36, yesterday was 20, so there is some improvement. Glucose 150. Hemoglobin A1c is pending. Triglycerides 264, cholesterol 97, LDL 9, HDL 35.4, random glucose, however it was 221. IMAGING REPORTS: Brain MRI: some gliosis of the right parietal lobe old, may be an old stroke, but nothing acute otherwise. Ultrasound: Some mild plaquing, but no high-grade stenosis. Cervical spine MRI shows broad-based bulging with focal moderate disk protrusion C6-C7, degenerative changes. I do not see any cord signal abnormalities. Lumbar spine was done as well. I do not have the report of that. She has not had an MRA levelock of Estevez nor a 2-D echo done thus far. Keep her on aspirin. IMPRESSION: Status post fall. I am not sure if this was a TIA or not. Recommend getting an EEG. Recommend aspirin. Recommend MRA levelock of Estevez and 2-D echo. Get her out of bed, ambulate her, hydrate. Monitor heart rate for any dysrhythmia. She may benefit from having a Holter monitor as outpatient. Continue current care. Further recommendations as needed. MD JOSE Banks/vonda , 11:02 AM , 11:12 AM
--- NOTE | 2018-05-21 14:16 | US ---
EXAM DATE: 05/21/2018 2:08 PM EST AGE/SEX: 62 years / Female INDICATIONS: Right lower extremity edema. CLINICAL DATA: This is the patient's initial encounter. Patient reports that signs and symptoms have been present for 4 - 6 months and indicates a pain score of 3/10. MEDICAL/SURGICAL HISTORY: . Coronary artery disease. Congestive heart failure. Chronic kidney disease. Chronic obstructive pulmonary disease. Diabetes. mellitus. Hyperlipidemia. Myocardial i nfarction. Obstructive sleep apnea. Renal failure. . Achilles tendon repair. Appendectomy. CABG. Tonsillectomy. Hysterectomy. COMPARISON: [facility] – [place], US LEG RIGHT VENOUS DOPPLER, 10/24/2017. . TECHNIQUE: Venous ultrasound of both lower extremities was performed from the inguinal ligament to t he proximal calf. Real-time, color Doppler and spectral tracing, compression and augmentation techni ques were used. FINDINGS: Normal compression of the deep venous system from the inguinal region to the proximal calf . No echogenic clot is seen. Normal response of the venous system to augmentation and respiration. CONCLUSION: 1. The study is negative for lower extremity deep venous thrombosis. Electronically signed by: Eric Krishnamurthy MD 05/21/2018 2:15 PM EST
--- NOTE | 2018-05-21 18:16 | ECHRPT ---
Indication: CVA/TIA CONCLUSIONS Very technically difficult study. In very limited views, the left ventricular systolic function is mildly reduced with an estimated ej ection fraction in the range of 45-50%. Mild concentric left ventricular hypertrophy. Tjwgv-[id number] mitral valve regurgitation. Possible mild mitral valve stenosis (mean grad 6 mmHg at 72bpm, MVA 2.5). Trace aortic valve regurgitation. There is trace tricuspid valve regurgitation. The estimated pulmonary arterial pressure is 44 mmHg. BP: / HR: Rhythm: MEASUREMENTS (Male / Female) Normal Values Technical Quality:Very technically difficult study 2D ECHO LV Diastolic Diameter PLAX 3.5 cm 4.2 - 5.9 / 3.9 - 5.3 cm LV Systolic Diameter PLAX 2.8 cm IVS Diastolic Thickness 1.7 cm 0.6 - 1.0 / 0.6 - 0.9 cm LVPW Diastolic Thickness 2.8 cm 0.6 - 1.0 / 0.6 - 0.9 cm LV Relative Wall Thickness 1.3 RV Internal Dim ED PLAX 3.8 cm LVOT Diameter 2.0 cm Aortic Root Diameter 2.2 cm LA Systolic Diameter LX 4.1 cm 3.0 - 4.0 / 2.7 - 3.8 cm LV Ejection Fraction MOD BP 43.1 % >= 55 % LV Ejection Fraction MOD 4C 49.7 % LV Ejection Fraction 4C AL 51.1 % LV Ejection Fraction MOD 2C 39.2 % LV Ejection Fraction 2C AL 39.2 % DOPPLER AV Peak Velocity 189.0 cm/s AV Peak Gradient 14.3 mmHg AI Peak Velocity 473.0 cm/s AI Peak Gradient 89.5 mmHg AI Pressure Half Time 379.0 ms LVOT Peak Velocity 120.0 cm/s LVOT Peak Gradient 5.8 mmHg AV Area Cont Eq pk 2.0 cm MV Peak Velocity 163.0 cm/s MV Peak Gradient 10.6 mmHg MV Mean Velocity 114.0 cm/s MV Mean Gradient 6.0 mmHg MV Area PHT 2.5 cm Mitral E Point Velocity 108.0 cm/s Mitral A Point Velocity 102.0 cm/s Mitral E to A Ratio 1.1 LV E' Lateral Velocity 6.3 cm/s Mitral E to LV E' Lateral Ratio 17.0 LV E' Septal Velocity 6.7 cm/s Mitral E to LV E' Septal Ratio 16.0 TR Peak Velocity 292.0 cm/s TR Peak Gradient 34.1 mmHg Right Atrial Pressure 10.0 mmHg Pulmonary Artery Systolic Pressu 44.1 mmHg Right Ventricular Systolic Press 44.1 mmHg PV Peak Velocity 138.0 cm/s PV Peak Gradient 7.6 mmHg FINDINGS LEFT VENTRICLE Normal left ventricular size. Mild concentric left ventricular hypertrophy. In very limited views, the left ventricular systolic function is mildly reduced with an estimated ej ection fraction in the range of 45-50%. RIGHT VENTRICLE The right ventricle was not well visualized. LEFT ATRIUM The left atrial size is mildly dilated. RIGHT ATRIUM The right atrium is not well visualized. ATRIAL SEPTUM The interatrial septum not well visualized. AORTA The aortic root and proximal ascending aorta are not well visualized. MITRAL VALVE Ofrjg-ju-[id number] mitral valve regurgitation. Mild thickening of the mitral valve leaflets. Possible mild mitral valve stenosis (mean grad 6 mmHg at 72bpm, MVA 2.5) AORTIC VALVE Trace aortic valve regurgitation. The aortic valve is not well visualized. No aortic valve stenosis. TRICUSPID VALVE The tricuspid valve is not well visualized. There is trace tricuspid valve regurgitation. The estimated pulmonary arterial pressure is 44 mmHg. PULMONARY VALVE No pulmonary valve regurgitation or stenosis. Miguel Shukla DO (Electronically Signed) Final Date:21 May 2018 18:14
[2018-05-21] MEDS: ALPRAZolam 0.25 MG Tablet PO PRN (20:50)
[2018-05-22] MEDS: Insulin NovoLOG Aspart Correctional Sugar Inj SQ SCH ×4 (01:23→18:22)
[2018-05-22] MEDS: Ciprofloxacin 0.3% Opth Drops 5 ML Bottle EACH EYE SCH ×9 (01:23→21:04)
[2018-05-22] MEDS: Heparin - SQ 10,000 UNITS/ML Vial SQ SCH ×4 (01:24→23:51)
--- NOTE | 2018-05-22 08:32 | P.DCO ---
- Diagnosis (1) Falls Status: Acute (2) Weakness Status: Acute (3) Radiculopathy Status: Acute - Physical Therapy Order: Evaluate and treat, Improve ambulation, Strength and gait training - Home Health Nursing Order: Medical education, Signs/symptoms of disease process, Nursing assessment with vital signs - Case Management Consult Case Management Consult-Home Health: Yes - Certification I have seen patient Mena Oro on 05/22/18. My clinical findings support the need for the requested home health care services because: Limited mobility due to disease progression, Deconditioned with increased weakness, Limited ability to care for self, High risk of falls I certify that my clinical findings support that this patient is homebound because: Unsteady gait/balance, Unsafe to leave home unassisted, Unable to use public transportation
[2018-05-22] MEDS: Ferrous Sulfate 325 MG Tablet PO SCH ×2 (08:44→21:04)
[2018-05-22] MEDS: Duloxetine 60 MG DR Capsule PO SCH (08:44)
[2018-05-22] MEDS: Metoprolol Tartrate 50 MG Tablet PO SCH ×2 (08:44→21:04)
[2018-05-22] MEDS: Pantoprazole Sodium 20 MG DR Tablet PO SCH (08:44)
[2018-05-22] MEDS: Senna/Docusate Sodium 8.6/50 MG Tablet PO SCH ×2 (08:45→21:11)
[2018-05-22] MEDS: Lipase/Protease/Amylase 12/38/60 DR Capsule PO SCH ×3 (08:45→18:23)
--- NOTE | 2018-05-22 10:50 | P.CON ---
History of Present Illness Service: Ophthalmology Reason for Consult: eye irritation Primary Care Provider: PROVIDER NON STAFF Chief Complaint: Falls History of Present Illness: 62-year-old female with a past medical history of CAD, CHF, diabetes and chronic kidney disease who is presenting to the hospital after having a few falls at home. She said she was feeling dizzy at the time and sort of just rolled out of bed. Patient concerned she has pieces of glass in both eyes - seeing halos and lines and decreased vision. Patient did fall into a glass mirror shattering it. Has been getting Cipro drops and feels she is doing better. [facility] - History History Provided By: Patient - Medical History Medical History: Medical History (Last Reviewed 05/21/18 @ 13:36 by Christina Laughlin Audit Partner, VISUAL PRESENTATION MANAGER) CAD (coronary artery disease) CHF (congestive heart failure) CKD (chronic kidney disease) COPD (chronic obstructive pulmonary disease) Diabetes mellitus Endometrial cancer HLD (hyperlipidemia) Hypotension Myocardial infarct, old MARIE (obstructive sleep apnea) PAD (peripheral artery disease) Renal failure - Surgical History Surgical History: Surgical History (Last Reviewed 05/21/18 @ 09:35 by Aron Lind) History of Achilles tendon repair History of appendectomy Hx of CABG Hx of tonsillectomy Hx of total hysterectomy - Family History Family History: Family History (Last Reviewed 05/21/18 @ 09:02 by Aron Lind) Other CHF (congestive heart failure) CVA (cerebral vascular accident) - Tobacco History Second Hand Smoke Exposure: No Tobacco Use In Past 30 Days: No Smoking Status: Former smoker - Alcohol History How Often Do You Have a Drink Containing Alcohol: Monthly or less - Substance Use History Substance History: No History of Abuse - Travel History Recent Travel in the [place] Within the Last 8 Weeks: No Recent Travel Out of the Country Within the Last 8 Weeks: No - Immunization History Tetanus Immunization: Unsure Medications and Allergies Active Medications: Active Medications Acetaminophen (Tylenol) 650 mg PO Q4H PRN PRN Reason: Temp > 100.4 Alprazolam (Xanax) 0.25 mg PO Q6H PRN PRN Reason: ANXIETY Last Admin: 05/21/18 20:50 Dose: 0.25 mg Lipase/Protease/Amylase (Milena Ren ) 6 cap PO TID MARNIE Last Admin: 05/22/18 08:45 Dose: 6 cap Aspirin (Aspirin Chew) 81 mg PO DAILY [facility] Last Admin: 05/22/18 08:44 Dose: 81 mg Atorvastatin Calcium (Lipitor) 80 mg PO DAILY [facility] Last Admin: 05/22/18 08:45 Dose: 80 mg Ciprofloxacin HCl (Ciloxan 0.3% Opth Drops) 1 drop EACH EYE Q2HR [facility] Stop: 05/23/18 09:59 Last Admin: 05/22/18 08:42 Dose: 1 drop Dextrose (D50w Vial) 50 ml IV.PUSH UNSCH PRN PRN Reason: PER HYPOGLYCEMIA PROTOCOL Duloxetine HCl (Cymbalta) 60 mg PO DAILY [facility] Last Admin: 05/22/18 08:44 Dose: 60 mg Ferrous Sulfate (Ferosul) 325 mg PO BID [facility] Last Admin: 05/22/18 08:44 Dose: 325 mg Glucagon (Glucagon Inj) 1 mg OTHER PRN PRN PRN Reason: for Hypoglycemia Protocol Heparin Sodium (Porcine) (Heparin Inj) 5,000 units SQ Q8H [facility] Last Admin: 05/22/18 08:46 Dose: 5,000 units Insulin Aspart (Novolog Insulin Correctional Sugar Inj) 0 unit SQ Q6HR [facility]; Protocol Last Admin: 05/22/18 06:28 Dose: 1 unit Insulin Detemir (Levemir Inj) 20 unit SQ HS [facility] Last Admin: 05/21/18 20:51 Dose: 20 unit Metoprolol Tartrate (Lopressor) 50 mg PO BID [facility] Last Admin: 05/22/18 08:44 Dose: 50 mg Oxycodone HCl (Roxicodone) 5 mg PO Q4H PRN PRN Reason: pain 3-10 Last Admin: 05/22/18 08:53 Dose: 5 mg Pantoprazole Sodium (Protonix) 20 mg PO DAILY [facility] Last Admin: 05/22/18 08:44 Dose: 20 mg Ropinirole HCl (Requip) 2 mg PO TID [facility] Last Admin: 05/22/18 08:44 Dose: 2 mg Senna/Docusate Sodium (Rachana-Colace) 1 tab PO BID [facility] Last Admin: 05/22/18 08:45 Dose: Not Given Sodium Chloride (Ns Flush) 2 ml IV.FLUSH BID [facility] Last Admin: 05/22/18 08:33 Dose: Not Given Sodium Chloride (Ns Flush) 2 ml IV.FLUSH PRN PRN PRN Reason: FLUSH AFTER USING IV ACCESS Allergies Allergy/AdvReac Type Severity Reaction Status Date / Time losartan Allergy Severe Unverified 08/13/17 08:38 olmesartan Allergy Severe Unverified 08/13/17 08:38 Home Medications Medication Instructions Recorded Confirmed Type allopurinol 300 mg PO DAILY 05/20/18 05/20/18 History alprazolam 1 mg PO BID 05/20/18 05/20/18 History aspirin 81 mg PO DAILY 05/20/18 05/20/18 History bethanechol chloride 12.5 mg PO QID 05/20/18 05/20/18 History duloxetine [Cymbalta] 60 mg PO DAILY 05/20/18 05/20/18 History ferrous sulfate 325 mg PO BID 05/20/18 05/20/18 History gabapentin [Neurontin] 800 mg PO DAILY 05/20/18 05/20/18 History insulin aspart U-100 [Novolog 1 sliding scale dose SUBCUT AC 05/20/18 05/20/18 History U-100 Insulin aspart] insulin detemir U-100 [Levemir 60 unit SUBCUT BID 05/20/18 05/20/18 History U-100 Insulin] [id number] [Creon] 2 cap PO TID 05/20/18 05/20/18 History metformin 1,000 mg PO BID 05/20/18 05/20/18 History metoprolol tartrate 50 mg PO BID 05/20/18 05/20/18 History omeprazole 20 mg PO DAILY 05/20/18 05/20/18 History oxycodone-acetaminophen [Percocet] 1 tab PO Q6H PRN 05/20/18 05/20/18 History ropinirole 2 mg PO TID 05/20/18 05/20/18 History rosuvastatin 40 mg PO DAILY 05/20/18 05/20/18 History spironolactone 50 mg PO DAILY 05/20/18 05/20/18 History tizanidine 4 mg PO TID 05/20/18 05/20/18 History torsemide 20 mg PO BID 05/20/18 05/20/18 History Physical Exam Vital signs: Vital Signs 05/21/18 11:04 05/21/18 14:24 05/21/18 20:00 Temperature 98.5 F 98.6 F 98.5 F Pulse Rate 84 73 90 Respiratory Rate 20 20 18 Blood Pressure 128/74 145/68 H 127/60 Pulse Oximetry 97 99 97 05/21/18 23:04 05/22/18 00:00 05/22/18 04:00 Temperature 98.6 F 98.1 F Pulse Rate 70 74 Respiratory Rate 18 18 Blood Pressure 129/84 128/72 Pulse Oximetry 95 95 98 05/22/18 08:00 Temperature 98.5 F Pulse Rate 67 Respiratory Rate 18 Blood Pressure 141/63 H Pulse Oximetry 96 Intake & Output 05/21/18 05/22/18 05/22/18 18:59 06:59 18:59 Intake Total 1000 / 1000 1000 / 1000 Balance 1000 / 1000 1000 / 1000 Weight 114.6 kg Intake: IV 1000 / 1000 1000 / 1000 1/2 Normal Saline Inj 1,000 ML 1000 / 1000 1000 / 1000 @ 75 mls/hr IV.CONT .[id number] MARNIE Rx#:[id number] Other: # Voids 1 3 # Urine Diapers 1 Date of Last Bowel Movement 05/20/18 # Bowel Movements 0 - Detailed Eye Exam Comments: Va cc at near OD 20/30, OS 20/30 EOM full OU, no diplopia CVF full OU Pupils 2-1 no APD OU IOP normal to palpation OU Anterior exam OD - crust on eyelid, mild injection, K clear, AC deep, pupil round, lens clear OS - crust on eyelid, mild injection, K clear, AC deep, pupil round, lens clear Results - Labs CBC & Chem 7: 05/21/18 07:30 05/21/18 07:30 Labs: Laboratory Results - last 24 hr 05/20/18 05/21/18 05/21/18 15:00 12:34 17:13 POC Glucose 205 H 227 H Hemoglobin A1c 8.5 H 05/21/18 05/22/18 05/22/18 20:51 01:16 06:04 POC Glucose 262 H 226 H 176 H Hemoglobin A1c - Imaging Impressions Cervical Spine MRI 05/21/18 00:00 CONCLUSION: 1. Broad-based bulging with focal moderate disc protrusion at C6-7. 2. Mild broad-based bulging C3-4 and C5-6. 3. Mild grade 1 anterior spondylolisthesis of C5 over C6 by 2 mm. 4. Mild degenerative changes along with disc space narrowing at C5-6 and C6-7. Head MRA 05/21/18 00:00 CONCLUSION: 1. Unremarkable MRA of the brain. Lumbar Spine MRI 05/21/18 00:00 CONCLUSION: 1. Mild grade 1 anterior spondylolisthesis of L3 over L4. 2. There is broad-based bulging at multiple levels as described above. 3. 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 4. Focal mild spinal canal stenosis at L3-4. 5. 7 mm right synovial cyst at L4-5. Venous Doppler Study 05/21/18 00:00 CONCLUSION: 1. The study is negative for lower extremity deep venous thrombosis. Assessment and Plan - Assessment (1) Conjunctivitis Code(s): H10.9 - Unspecified conjunctivitis Status: Acute Plan: Continue Cipro drops QID OU. Follow up with [facility] if it does not clear within 1 week.
--- NOTE | 2018-05-22 10:50 | MG ---
cc: Bernadette Marquez MD EEG NUMBER: [id number]. REFERRING PHYSICIAN: Donnie Desouza MD CLINICAL HISTORY: Room H89 with photic done. Awake, drowsy, oriented. MRI shows some gliosis right parietal lobe. Admitted with dizziness, fell out of bed. He has heart disease, COPD, diabetes, on antibiotics, Lopressor, Requip. DESCRIPTION OF RECORD: The patient has overall background of 6-7 Hz of mild slowing. Continuous eye movement. Photic stimulation did elicit a posterior driving response. Otherwise, fairly symmetrical background. No appreciable epileptiform features. Hyperventilation was not done. Overall, normal outflow when she is awake. When she falls asleep, there is some mild attenuation seen. IMPRESSION: Normal-appearing electroencephalogram. No evidence of any epileptiform features in this one recording. Clinical correlation. MD JOSE Banks/angeli/layo , 07:36 AM , 07:41 AM
--- NOTE | 2018-05-22 14:53 | P.PN ---
Subjective Interval history: The patient was seen around 9:30am. Follow up for encephalopathy, falls, TIMOTHY. The patient reports feeling slightly better today however still very weak. She states she has only been able to ambulate a few steps at bedside. She reports feeling sore from the fall with diffuse body aches. She is concerned about going home because she has 3 steps to get into her home. She is also requiring her ammonia level to be checked as she has had problems with hyperammonemia and falls in the past. She denies any other medical complaints at this time. Physical Exam Vital signs: Vital Signs 05/21/18 20:00 05/21/18 23:04 05/22/18 00:00 Temperature 98.5 F 98.6 F Pulse Rate 90 70 Respiratory Rate 18 Blood Pressure 127/60 129/84 Pulse Oximetry 97 95 95 05/22/18 04:00 05/22/18 08:00 05/22/18 11:48 Temperature 98.1 F 98.5 F 98.4 F Pulse Rate 74 88 68 Respiratory Rate 18 18 Blood Pressure 128/72 141/63 H 143/64 H Pulse Oximetry 98 96 97 Intake & Output 05/21/18 05/22/18 05/22/18 18:59 06:59 18:59 Intake Total 1000 / 1000 1000 / 1000 Balance 1000 / 1000 1000 / 1000 Weight 114.6 kg Intake: IV 1000 / 1000 1000 / 1000 1/2 Normal Saline Inj 1,000 ML 1000 / 1000 1000 / 1000 @ 75 mls/hr IV.CONT .[id number] [facility] Rx#:[id number] Other: # Voids 1 3 # Urine Diapers 1 Date of Last Bowel Movement 05/20/18 05/20/18 # Bowel Movements 0 Narrative: GENERAL: Well-nourished, well-developed pleasant obese female patient in [facility]. SKIN: Warm and dry. No rash. HEENT: Normocephalic. Atraumatic. Pupils equal and round. Mucous membranes pink and moist. Bilateral eyes with scant yellow drainage and some matting. CARDIOVASCULAR: Regular rate and rhythm. 2/6 systolic murmur noted. RESPIRATORY: No accessory muscle use. Clear to auscultation. Breath sounds equal bilaterally. GASTROINTESTINAL: Abdomen soft, non-tender, nondistended. Normoactive bowel sounds x4. MUSCULOSKELETAL: No obvious deformities. Extremities without clubbing, cyanosis , or edema. Bilateral anterior knees with abrasions and ecchymosis. NEUROLOGICAL: Awake and alert. No obvious cranial nerve deficits. 4.5/5 bilateral lower extremity weakness, 5/5 strength bilateral upper extremities. Normal speech. PSYCHIATRIC: Appropriate mood and affect; insight and judgment normal. h. Results - Labs CBC & Chem 7: 05/21/18 07:30 05/21/18 07:30 Laboratory Results - last 24 hr 05/21/18 05/21/18 05/22/18 17:13 20:51 01:16 POC Glucose 227 H 262 H 226 H 05/22/18 05/22/18 06:04 12:34 POC Glucose 176 H 205 H - Imaging Carotid Doppler Study 05/20/18 00:00 CONCLUSION: 1. Mild atherosclerotic plaquing seen at both carotid bifurcations. 2. No focal high-grade or hemodynamically significant stenosis is demonstrated. Head MRI 05/20/18 00:00 CONCLUSION: 1. There is a subtle area of apparent gliosis involving the right parietal lobe. 2. No acute hemorrhage, mass or evidence of acute infarction. Shoulder X-Ray 05/20/18 00:00 CONCLUSION: Negative right shoulder series. Head CT 05/20/18 15:01 CONCLUSION: No acute intracranial abnormalities seen. No areas of acute hemorrhage or mass effect are seen. Report was called by [Dr. Nash to Dr. Beal at 3:18 PM] Cervical Spine MRI 05/21/18 00:00 CONCLUSION: 1. Broad-based bulging with focal moderate disc protrusion at C6-7. 2. Mild broad-based bulging C3-4 and C5-6. 3. Mild grade 1 anterior spondylolisthesis of C5 over C6 by 2 mm. 4. Mild degenerative changes along with disc space narrowing at C5-6 and C6-7. Head MRA 05/21/18 00:00 CONCLUSION: 1. Unremarkable MRA of the brain. Lumbar Spine MRI 05/21/18 00:00 CONCLUSION: 1. Mild grade 1 anterior spondylolisthesis of L3 over L4. 2. There is broad-based bulging at multiple levels as described above. 3. 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 4. Focal mild spinal canal stenosis at L3-4. 5. 7 mm right synovial cyst at L4-5. Venous Doppler Study 05/21/18 00:00 CONCLUSION: 1. The study is negative for lower extremity deep venous thrombosis. Assessment and Plan - Assessment (1) Falls Code(s): W19.XXXA - Unspecified fall, initial encounter Status: Acute (2) Weakness Code(s): R53.1 - Weakness Status: Acute (3) Radiculopathy Code(s): M54.10 - Radiculopathy, site unspecified Status: Acute - Plan 62-year-old female with a past medical history of CAD, CHF, diabetes and chronic kidney disease who is presenting to the hospital after having a few falls at home. Acute metabolic encephalopathy: The pt had two falls, speech disturbances and jerks in her upper and lower extremities. Possibly s/t polypharmacy with sedating meds in the setting of acute on chronic renal failure. No hx of seizure disorder. No hx of MS. Hx of TIA in the past per patient. -CT head unremarkable -MRI/MRA Brain +small area of gliosis right parietal lobe; otherwise no acute findings -Carotid US neg for hemodynamically significant stenosis -EEG unremarkable -continue ASA and statin. -Consult Neurology, appreciate assistance. -PT/OT/ST ordered -case management consult for home health care. -seizure precautions -check ammonia level as patient reports hx of hyperammonemia and falls in the past -discussed with Dr. Marquez, cleared for discharge -symptoms improved, however still with difficulty ambulating and weakness, repeat PT eval tomorrow am Hx of chronic LBP with multiple level DDD and chronic neuropathy: patient with multiple vague neurological complaints including sensations of stinging/burning/ paresthesias in extremities -C-spine MRI shows multiple broad base disc bulging without canal stenosis -L-spine MRI shows broad-based bulging at multiple levels with significant canal stenosis -Fall precautions -continue on pain mediations per home regimen. -Gabapentin on hold due to concern may be contributing to encephalopathy -PT/OT consulted as above Acute Bacterial Conjunctivitis: scant purulent drainage with matting on exam -brain MRI/MRA unremarkable as above -continue on cipro drops qid -S/p ophthalmology consult, recommends continuing drops, outpatient f/up with [facility] if symptoms not improved in 1 week CAD hx of [place] in October s/p stents x 7: patient had complaints of mid retrosternal chest pain after turning over in bed, reproducible to touch that has now resolved -doubt cardiac -Trops neg x 3 -continue to monitor on telemetry -continue on Lopressor -no further chest pains Acute on chronic renal failure: resolving. Likely exacerbated by diuretics. -Creatinine improved from 2.48 to 1.48 with IVF -hold diuretics and avoid nephrotoxins. -gentle IVFs in the setting history of CHF. Dysphagia: Sensation of something being stuck in her throat -S/p speech therapy evaluation, no concerns DM: Chronic. On insulin as an outpt. -insulin sliding scale. -Levemir 20 units HS. Adjust as needed. -HgbA1c 8.5 -continue outpatient f/up Chronic respiratory insufficiency/MARIE: On BiPAP and O2 as an outpt. -continue BiPAP. -oxygen and nebs as needed. On home oxygen at home. RLE edema: right calf larger than left, chronic per the patient. Hx of DVT LLE in her 20s while on control -Doppler U/S negative for DVT PPx: Heparin sq Discharge Planning: Hopefully discharge in am on 12/2 if labs unremarkable and after repeat evaluation with PT. Discussed with case management to arrange HHC prior to discharge.
[2018-05-22 17:33] LABS: Potassium 4.2 meq/L (3.5-5.1)
[2018-05-22] MEDS: Lactobacillus Acidophilus/L. Spores Tablet PO SCH (18:23)
[2018-05-22] MEDS: Insulin Detemir Inj 1,000 UNIT/10 ML Vial SQ SCH (21:17)
[2018-05-22] MEDS: ALPRAZolam 0.25 MG Tablet PO PRN (23:51)
[2018-05-23 00:16] VITALS: RESP 16
[2018-05-23] MEDS: Insulin NovoLOG Aspart Correctional Sugar Inj SQ SCH ×3 (00:17→13:04)
[2018-05-23] MEDS: Duloxetine 60 MG DR Capsule PO SCH (09:36)
[2018-05-23] MEDS: Lactobacillus Acidophilus/L. Spores Tablet PO SCH ×2 (09:36→12:42)
[2018-05-23] MEDS: Lipase/Protease/Amylase 12/38/60 DR Capsule PO SCH ×2 (09:36→12:42)
[2018-05-23] MEDS: Heparin - SQ 10,000 UNITS/ML Vial SQ SCH (09:37)
[2018-05-23] MEDS: Pantoprazole Sodium 20 MG DR Tablet PO SCH (09:37)
[2018-05-23] MEDS: Ferrous Sulfate 325 MG Tablet PO SCH (09:37)
[2018-05-23] MEDS: Senna/Docusate Sodium 8.6/50 MG Tablet PO SCH (09:37)
[2018-05-23] MEDS: Metoprolol Tartrate 50 MG Tablet PO SCH (09:37)
[2018-05-23] MEDS: Ciprofloxacin 0.3% Opth Drops 5 ML Bottle EACH EYE SCH ×2 (09:38→13:04)
[2018-05-23 10:14] VITALS: O2SAT 98
[2018-05-23 12:52] VITALS: BP 136/65; PULSE 64; TEMP 97.5
--- NOTE | 2018-05-23 15:05 | P.PN ---
Subjective Interval history: Patient is seen sitting up on side of bed eating breakfast. She tells me that she is feeling better. No further episodes of dizziness. No chest pain or shortness of breath. No nausea vomiting or diarrhea. She is able to ambulate with walker. Physical Exam Vital signs: Vital Signs 05/22/18 16:00 05/22/18 19:34 05/22/18 23:42 Temperature 98.6 F 98.6 F Pulse Rate 69 76 Respiratory Rate 18 16 18 Blood Pressure 156/65 H 130/62 Pulse Oximetry 98 99 05/23/18 00:00 05/23/18 03:45 05/23/18 04:00 Temperature 98.6 F 98.4 F Pulse Rate 68 73 70 Respiratory Rate 16 16 Blood Pressure 145/65 H 126/58 L Pulse Oximetry 99 99 05/23/18 08:00 05/23/18 09:05 05/23/18 12:00 Temperature 97.8 F 97.5 F L Pulse Rate 73 64 Respiratory Rate 16 16 Blood Pressure 142/63 H 136/65 Pulse Oximetry 97 98 98 Intake & Output 05/22/18 05/23/18 05/23/18 18:59 06:59 18:59 Other: # Voids 4 2 Date of Last Bowel Movement 05/20/18 Narrative: GENERAL: Well-nourished, well-developed pleasant obese female patient in [facility]. SKIN: Warm and dry. No rash. Areas of abrasion bilateral anterior knees and tops of toes. CARDIOVASCULAR: Regular rate and rhythm. murmur noted. RESPIRATORY: No accessory muscle use. Clear to auscultation. Breath sounds equal bilaterally. GASTROINTESTINAL: Abdomen soft, non-tender, nondistended. Normoactive bowel sounds x4. MUSCULOSKELETAL: No obvious deformities. Extremities without clubbing, cyanosis , or edema. NEUROLOGICAL: Awake and alert. No obvious cranial nerve deficits. Slight bilateral lower extremity weakness, 5/5 strength bilateral upper extremities. Normal speech. Results - Labs CBC & Chem 7: 05/21/18 07:30 05/22/18 16:49 Laboratory Results - last 24 hr 05/22/18 05/22/18 05/22/18 16:49 16:49 18:06 Sodium 139 Potassium 4.2 Chloride 103 Carbon Dioxide 28.0 Anion Gap 8 BUN 17 Creatinine 1.32 H Estimated GFR 41 L POC Glucose 186 H Random Glucose 199 H Calcium 9.0 Ammonia 21 05/22/18 05/22/18 05/23/18 21:10 23:55 06:07 Sodium Potassium Chloride Carbon Dioxide Anion Gap BUN Creatinine Estimated GFR POC Glucose 203 H 179 H 142 H Random Glucose Calcium Ammonia 05/23/18 05/23/18 09:35 12:45 Sodium Potassium Chloride Carbon Dioxide Anion Gap BUN Creatinine Estimated GFR POC Glucose 159 H 191 H Random Glucose Calcium Ammonia Assessment and Plan - Assessment (1) Falls Code(s): W19.XXXA - Unspecified fall, initial encounter Status: Acute (2) Weakness Code(s): R53.1 - Weakness Status: Acute (3) Radiculopathy Code(s): M54.10 - Radiculopathy, site unspecified Status: Acute - Plan 62-year-old female with a past medical history of CAD, CHF, diabetes and chronic kidney disease who is presenting to the hospital after having a few falls at home. Acute metabolic encephalopathy: The pt had two falls, speech disturbances and jerks in her upper and lower extremities. Possibly s/t polypharmacy with sedating meds in the setting of acute on chronic renal failure. No hx of seizure disorder. No hx of MS. Hx of TIA in the past per patient. -CT head unremarkable -MRI/MRA Brain +small area of gliosis right parietal lobe; otherwise no acute findings -Carotid US neg for hemodynamically significant stenosis -EEG unremarkable -continue ASA and statin. -Consult Neurology, appreciate assistance -neurology has cleared for discharge. -PT/OT/ST ordered -case management consult for home health care. -seizure precautions -check ammonia level as patient reports hx of hyperammonemia and falls in the past -ammonia normal. Hx of chronic LBP with multiple level DDD and chronic neuropathy: patient with multiple vague neurological complaints including sensations of stinging/burning/ paresthesias in extremities -C-spine MRI shows multiple broad base disc bulging without canal stenosis -L-spine MRI shows broad-based bulging at multiple levels with significant canal stenosis -Fall precautions -continue on pain mediations per home regimen. -Gabapentin on hold due to concern may be contributing to encephalopathy -PT/OT consulted as above Acute Bacterial Conjunctivitis: scant purulent drainage with matting on exam -continue on cipro drops qid -S/p ophthalmology consult, recommends continuing drops, outpatient f/up with [facility] if symptoms not improved in 1 week CAD hx of [place] in October s/p stents x 7: patient had complaints of mid retrosternal chest pain after turning over in bed, reproducible to touch that has now resolved -doubt cardiac -Trops neg x 3 -continue to monitor on telemetry -continue on Lopressor -no further chest pains Acute on chronic renal failure: resolving. Likely exacerbated by diuretics. -hold diuretics and avoid nephrotoxins. -gentle IVFs in the setting history of CHF. DM: Chronic. On insulin as an outpt. -insulin sliding scale. -Levemir 20 units HS. Adjust as needed. -HgbA1c 8.5 -continue outpatient f/up Chronic respiratory insufficiency/MARIE: On BiPAP and O2 as an outpt. -continue BiPAP. -oxygen and nebs as needed. On home oxygen at home. RLE edema: right calf larger than left, chronic per the patient. Hx of DVT LLE in her 20s while on control -Doppler U/S negative for DVT PPx: Heparin sq Discharge Planning: Home with walker per PT
--- NOTE | 2018-05-23 15:16 | P.DS ---
Date of admission: 05/20/18 18:21 Primary care physician: PROVIDER NON STAFF Attending physician on discharge: Ann Simpson Anticipated date of discharge: 05/23/18 Brief History from admission: The patient is a 62-year-old female with a past medical history of CAD, CHF, diabetes and chronic kidney disease who is presenting to the hospital after having a few falls at home. The patient went to sleep late after the football game and while getting up out of bed to try to go to the bathroom she fell down. She said she was feeling dizzy at the time and sort of just rolled out of bed. She is not sure if she lost consciousness or not. When she tried to get up she fell down again. She did hurt her right shoulder in the process. She also sustained a few injuries to her knees and wrists. Her felt like she had a change in her speech. He said somehow her speech sounds different. At times the patient would hold her right arm over her head and she was not sure why. She developed unintentional generalized twitching. The patient did have some shortness of breath associated with this and her home oxygen was increased by her . The patient says that about 6 or 7 years ago she had a similar situation of altered mental status and that was secondary to her kidney function getting worse. The patient says she does not typically fall down but she is weak and walks with a walker. She denies any chest pain or shortness of breath at this time. She does endorse chronic neuropathy. DS: Diagnosis - Discharge Diagnosis (1) Falls Status: Acute (2) Weakness Status: Acute (3) Radiculopathy Status: Acute DS: Medications - Discharge Medications Prescriptions: ciprofloxacin HCl 1 drop EACH EYE QID #1 bottle DS: Summary Hospital Course: 62-year-old female with a past medical history of CAD, CHF, diabetes and chronic kidney disease who is presenting to the hospital after having a few falls at home. Acute metabolic encephalopathy: The pt had two falls, speech disturbances and jerks in her upper and lower extremities. Possibly s/t polypharmacy with sedating meds in the setting of acute on chronic renal failure. No hx of seizure disorder. No hx of MS. Hx of TIA in the past per patient. -CT head unremarkable. MRI/MRA Brain +small area of gliosis right parietal lobe; otherwise no acute findings -Carotid US neg for hemodynamically significant stenosis; EEG unremarkable -continue ASA and statin. -neurology evaluated has cleared for discharge; recommending outpatient follow-up. -PT/OT/ST ordered -will need home health care and walker Hx of chronic LBP with multiple level DDD and chronic neuropathy: patient with multiple vague neurological complaints including sensations of stinging/burning/ paresthesias in extremities. -C-spine MRI shows multiple broad base disc bulging without canal stenosis -L-spine MRI shows broad-based bulging at multiple levels with significant canal stenosis -Continue home medications gabapentin and Oxy however be aware of possible polypharmacy and oversedation Acute Bacterial Conjunctivitis: scant purulent drainage with matting on exam -cipro drops qid -S/p ophthalmology consult, recommends continuing drops, outpatient f/up with [facility] if symptoms not improved in 1 week CAD hx of [place] in October s/p stents x 7: patient had complaints of mid retrosternal chest pain after turning over in bed, reproducible to touch that has now resolved . Doubt cardiac - Trops neg x 3 Acute on chronic renal failure: resolved. Likely exacerbated by diuretics. - Time Spent with Patient Total time spent providing and/or coordinating discharge services: Less than 30 minutes - Quality: VTE Deep Vein Thrombosis/Pulmonary Embolism Present on Admission: No Exam Vital signs: Vital Signs 05/22/18 16:00 05/22/18 19:34 05/22/18 23:42 Temperature 98.6 F 98.6 F Pulse Rate 69 76 Respiratory Rate 18 16 18 Blood Pressure 156/65 H 130/62 Pulse Oximetry 98 99 05/23/18 00:00 05/23/18 03:45 05/23/18 04:00 Temperature 98.6 F 98.4 F Pulse Rate 68 73 70 Respiratory Rate 16 16 Blood Pressure 145/65 H 126/58 L Pulse Oximetry 99 99 05/23/18 08:00 05/23/18 09:05 05/23/18 12:00 Temperature 97.8 F 97.5 F L Pulse Rate 73 64 Respiratory Rate 16 16 Blood Pressure 142/63 H 136/65 Pulse Oximetry 97 98 98 Intake & Output 05/22/18 05/23/18 05/23/18 18:59 06:59 18:59 Other: # Voids 4 2 Date of Last Bowel Movement 05/20/18 Narrative: GENERAL: Well-nourished, well-developed pleasant obese female patient in [facility]. SKIN: Warm and dry. No rash. Areas of abrasion bilateral anterior knees and tops of toes. CARDIOVASCULAR: Regular rate and rhythm. murmur noted. RESPIRATORY: No accessory muscle use. Clear to auscultation. Breath sounds equal bilaterally. GASTROINTESTINAL: Abdomen soft, non-tender, nondistended. Normoactive bowel sounds x4. MUSCULOSKELETAL: No obvious deformities. Extremities without clubbing, cyanosis , or edema. NEUROLOGICAL: Awake and alert. No obvious cranial nerve deficits. Slight bilateral lower extremity weakness, 5/5 strength bilateral upper extremities. Normal speech. Results Procedures completed during hospitalization: none Labs on day of discharge: Labs from last 24 hours 05/23/18 05/23/18 05/23/18 12:45 09:35 06:07 Sodium Potassium Chloride Carbon Dioxide Anion Gap BUN Creatinine Estimated GFR POC Glucose 191 H 159 H 142 H Random Glucose Calcium Ammonia 05/22/18 05/22/18 05/22/18 23:55 21:10 18:06 Sodium Potassium Chloride Carbon Dioxide Anion Gap BUN Creatinine Estimated GFR POC Glucose 179 H 203 H 186 H Random Glucose Calcium Ammonia 05/22/18 05/22/18 16:49 16:49 Sodium 139 Potassium 4.2 Chloride 103 Carbon Dioxide 28.0 Anion Gap 8 BUN 17 Creatinine 1.32 H Estimated GFR 41 L POC Glucose Random Glucose 199 H Calcium 9.0 Ammonia 21 - Impressions ITS Impressions Carotid Doppler Study 05/20/18 00:00 CONCLUSION: 1. Mild atherosclerotic plaquing seen at both carotid bifurcations. 2. No focal high-grade or hemodynamically significant stenosis is demonstrated. Head MRI 05/20/18 00:00 CONCLUSION: 1. There is a subtle area of apparent gliosis involving the right parietal lobe. 2. No acute hemorrhage, mass or evidence of acute infarction. Shoulder X-Ray 05/20/18 00:00 CONCLUSION: Negative right shoulder series. Head CT 05/20/18 15:01 CONCLUSION: No acute intracranial abnormalities seen. No areas of acute hemorrhage or mass effect are seen. Report was called by [Dr. Nash to Dr. Beal at 3:18 PM] Cervical Spine MRI 05/21/18 00:00 CONCLUSION: 1. Broad-based bulging with focal moderate disc protrusion at C6-7. 2. Mild broad-based bulging C3-4 and C5-6. 3. Mild grade 1 anterior spondylolisthesis of C5 over C6 by 2 mm. 4. Mild degenerative changes along with disc space narrowing at C5-6 and C6-7. Head MRA 05/21/18 00:00 CONCLUSION: 1. Unremarkable MRA of the brain. Lumbar Spine MRI 05/21/18 00:00 CONCLUSION: 1. Mild grade 1 anterior spondylolisthesis of L3 over L4. 2. There is broad-based bulging at multiple levels as described above. 3. 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 4. Focal mild spinal canal stenosis at L3-4. 5. 7 mm right synovial cyst at L4-5. Venous Doppler Study 05/21/18 00:00 CONCLUSION: 1. The study is negative for lower extremity deep venous thrombosis. Discharge Plan - Discharge Disposition Patient Disposition: /Home Health Service - Discharge Condition Condition: Stable - Discharge Order Discharge Orders: Discharge Order (Routine); Ordered 05/23/18 Ordered By: Arely Ponce - Discharge Details Anticipated Discharge Date: 05/23/18 - Physicians Team Primary Care Provider: NON STAFF,PROVIDER Attending Provider: Ann Simpson Other Providers: Bernadette Marquez MD ; Dee Pro MD ; Edith Sharma
== END 2018-05-23 15:57 | disposition home health service (06) ==
LOC: NEPC 14:35 → NEPHCDU 14:35
PROVIDERS: ADMIT Family Medicine; ATTEND Family Medicine